=== PATIENT | female | born 1965 | race American Indian/Alaskan Native ===

== ENCOUNTER 2017-03-09 11:00 | Outpatient (CLI) | payer BC | END 2017-03-09 11:01 | disposition home or self-care (01) | LOC: SLR 11:00 | PROVIDERS: ATTEND Specialist | DX: G47.33 Obstructive sleep apnea (adult) (pediatric) (principal); I11.0 Hypertensive heart disease with heart failure; I50.9 Heart failure, unspecified; E78.00 Pure hypercholesterolemia, unspecified; J45.909 Unspecified asthma, uncomplicated | CPT/HCPCS: 95811 ==

== ENCOUNTER 2017-07-28 13:18 | Outpatient (CLI) | payer BC ==
--- NOTE | 2017-07-28 14:15 | Mammography Report ---
BILATERAL MAMMOGRAM: FINDINGS: The breasts are almost entirely fat (<25% glandular). No mass, distortion, suspicious calcification, or skin change is seen. No significant change when compared to prior exam in March 2012. CAD was utilized. IMPRESSION: Negative mammogram. There is no mammographic evidence of malignancy. RECOMMENDATION: Follow-up per ACS guidelines. BI-RADS CATEGORY: 1 = Negative ACR BI-RADS MAMMOGRAPHIC CODES: 0 = Needs additional imaging evaluation; 1 = Negative; 2 = Benign; 3 = Probably benign; 4 = Suspicious; 5 = Malignant; 6 = Known biopsy-proven malignancy COMMENT: 1. Dense breast tissue, i.e., adenosis, fibrocystic changes, etc., may obscure an underlying neoplasm. 2. Approximately 10% of cancers are not detected with mammography. 3. A negative mammography report should not delay biopsy if a clinically suspicious mass is present. COMMENT: Patient follow-up letters are generated in [employer].
== END 2017-07-28 13:19 | disposition home or self-care (01) ==
LOC: MAMMO 13:18
PROVIDERS: ATTEND Family Medicine
DX: Z12.31 Encounter for screening mammogram for malignant neoplasm of breast (principal)
CPT/HCPCS: 77067

== ENCOUNTER 2017-09-29 20:27 | Emergency (ER) | payer OTHER, BC ==
[2017-09-29 21:01] VITALS: BP 149/86
[2017-09-29] MEDS ORDERED: MOTRIN PO ONE (21:02)
--- NOTE | 2017-09-29 21:42 | Emergency Department Report ---
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 Onset/Timin -: hour(s) Location: neck (left posterior lateral neck ), upper extremity (left shoulder ) Radiation: non-radiation Severity scale (0 -10): 3 Quality: aching Improves with: none Worsens with: none Associated Symptoms: denies: confusion, chest pain, diaphoresis, fever/chills, headaches, nausea/vomiting, shortness of breath, syncope, weakness Treatments Prior to Arrival: none - Related Data Home Medications Medication Instructions Recorded Confirmed Last Taken ALBUTEROL Inhaler [ProAir HFA 2 puff IH QID PRN 06/21/16 06/21/16 Unknown Inhaler] Atorvastatin Calcium [Lipitor] 20 mg PO QHS 06/21/16 06/21/16 Unknown Canagliflozin [Invokana] 300 mg PO DAILY 06/21/16 06/21/16 Unknown Lisinopril [Zestril TAB] 20 mg PO QDAY 06/21/16 06/21/16 Unknown Metformin HCl [Glucophage] 1,000 mg PO BID 06/21/16 06/21/16 Unknown Previous Rx's Medication Instructions Recorded Last Taken Type Cyclobenzaprine [Flexeril 10 MG 5 mg PO QHS PRN #10 tablet 06/23/16 Unknown Rx TAB] Furosemide [Lasix] 20 mg PO QDAY #30 tablet 06/23/16 Unknown Rx traMADol [Ultram] 50 mg PO Q6HR PRN #20 tablet 06/23/16 Unknown Rx Cyclobenzaprine [Flexeril] 10 mg PO BID PRN #20 tablet 09/29/17 Unknown Rx Menthol/Camphor [Waldron Helen 1 applicatio TP TID PRN #1 tube 09/29/17 Unknown Rx Ointment] Naproxen [EC-Naprosyn] 500 mg PO BID #30 tablet. 09/29/17 Unknown Rx Allergies Allergy/AdvReac Type Severity Reaction Status Date / Time No Known Allergies Allergy Verified 08/26/14 09:49 ED Review of Systems ROS: Stated complaint: LT SHOULDER PAIN Other details as noted in HPI Constitutional: denies: chills, fever Eyes: denies: eye pain, eye discharge, vision change ENT: denies: ear pain, throat pain Respiratory: denies: cough, shortness of breath, wheezing Cardiovascular: denies: chest pain, palpitations Endocrine: no symptoms reported Gastrointestinal: denies: abdominal pain, nausea, diarrhea Genitourinary: denies: urgency, dysuria, discharge Musculoskeletal: arthralgia, myalgia. denies: back pain, joint swelling Skin: denies: rash, lesions Neurological: denies: headache, weakness, paresthesias Psychiatric: denies: anxiety, depression Hematological/Lymphatic: denies: easy bleeding, easy bruising ED Past Medical Hx - Past Medical History Hx Hypertension: Yes Hx Congestive Heart Failure: Yes Hx Diabetes: Yes Hx Asthma: Yes Additional medical history: Morbid Obesity - Social History Smoking Status: Never Smoker Substance Use Type: None - Medications Home Medications: Home Medications Medication Instructions Recorded Confirmed Last Taken Type ALBUTEROL Inhaler [ProAir HFA 2 puff IH QID PRN 06/21/16 06/21/16 Unknown History Inhaler] Atorvastatin Calcium [Lipitor] 20 mg PO QHS 06/21/16 06/21/16 Unknown History Canagliflozin [Invokana] 300 mg PO DAILY 06/21/16 06/21/16 Unknown History Lisinopril [Zestril TAB] 20 mg PO QDAY 06/21/16 06/21/16 Unknown History Metformin HCl [Glucophage] 1,000 mg PO BID 06/21/16 06/21/16 Unknown History Cyclobenzaprine [Flexeril 10 MG 5 mg PO QHS PRN #10 tablet 06/23/16 Unknown Rx TAB] Furosemide [Lasix] 20 mg PO QDAY #30 tablet 06/23/16 Unknown Rx traMADol [Ultram] 50 mg PO Q6HR PRN #20 tablet 06/23/16 Unknown Rx Cyclobenzaprine [Flexeril] 10 mg PO BID PRN #20 tablet 09/29/17 Unknown Rx Menthol/Camphor [Waldron Helen 1 applicatio TP TID PRN #1 tube 09/29/17 Unknown Rx Ointment] Naproxen [EC-Naprosyn] 500 mg PO BID #30 tablet. 09/29/17 Unknown Rx ED Physical Exam - General Limitations: No Limitations General appearance: alert, in no apparent distress - Head Head exam: Present: atraumatic, normocephalic - Eye Eye exam: Present: normal appearance, PERRL, EOMI Pupils: Present: normal accommodation - ENT ENT exam: Present: mucous membranes moist - Neck Neck exam: Present: tenderness (left lateral neck muscle tenderness to deep palpation). Absent: meningismus, lymphadenopathy, thyromegaly - Expanded Neck Exam Expanded Neck exam: Present: tenderness (left lateral neck muscle tenderness to deep palpation rom intact including chin to chest bilat shoulders and full neck extension , no posterior vertebral point tenderness mild paraspinus muscle tenderness ). Absent: midline deformity, anterior neck swelling, thyroid mass, carotid bruit, tracheal deviation - Respiratory Respiratory exam: Present: normal lung sounds bilaterally. Absent: respiratory distress - Cardiovascular Cardiovascular Exam: Present: regular rate, normal rhythm. Absent: systolic murmur, diastolic murmur, rubs, gallop - GI/Abdominal GI/Abdominal exam: Present: soft, normal bowel sounds - Rectal Rectal exam: Present: deferred - Extremities Exam Extremities exam: Present: normal inspection, tenderness (left posterior lateral shoulder pain with movement), normal capillary refill. Absent: pedal edema, joint swelling, calf tenderness - Expanded Upper Extremity Exam Left Shoulder Exam: Present: normal inspection, tenderness (left posterior lateral muscle tenderness pain with movement arm drop and open can), tenderness over AC joint. Absent: swelling, abrasion, laceration, ecchymosis, deformity, crepidus , dislocation, erythema, other Upper Arm exam: Present: normal inspection, full ROM Elbow exam: Present: normal inspection, full ROM Forearm Wrist exam: Present: normal inspection, full ROM Hand Wrist exam: Present: normal inspection, full ROM Neuro motor exam: Present: wrist extension intact, thumb opposition intact, thumb IP flexion intact, thumb adduction intact, fingers 2-5 abduction intact Neurosensory exam: Present: 2-point discrimination, radial nerve intact, ulnar nerve intact, median nerve intact Vascular: Present: normal capillary refill, radial pulse, brachial pulse, ulnar pulse. Absent: vascular compromise, Pallo, pulse deficit radial art, pulse deficit ulnar art, pulse deficit brachial art - Back Exam Back exam: Present: normal inspection, full ROM. Absent: tenderness, CVA tenderness (R), CVA tenderness (L), muscle spasm, paraspinal tenderness, vertebral tenderness, rash noted - Neurological Exam Neurological exam: Present: alert, oriented X3, CN II-XII intact, normal gait, reflexes normal - Expanded Neurological Exam Expanded Patient oriented to: Present: person, place, time Speech: Present: fluid speech Cranial nerves: EOM's Intact: Normal, Gag Reflex: Normal, Tongue Deviation: Normal, Nystagmus: Normal, Facial Sensation: Normal Upper motor neuron: Pronator Drift: Normal, Sensory Extinction: Normal Sensory exam: Upper Extremity Light Touch: Normal, Upper Extremity Pin Prick: Normal, Upper Extremity Temperature: Normal, UE 2 Point Discrimination: Normal Motor strength exam: RUE: 5, LUE: 5, RLE: 5, LLE: 5 DTR: bicep (R): 2+, bicep (L): 2+, tricep (R): 2+, tricep (L): 2+ Best Eye Response ([place]): (4) open spontaneously Best Motor Response ([place]): (6) obeys commands Best Verbal Response ([place]): (5) oriented [place] Total: 15 - Psychiatric Psychiatric exam: Present: normal affect, normal mood - Skin Skin exam: Present: warm, dry, intact, normal color ED Course Vital Signs 09/29/17 20:46 Temperature 98.5 F Pulse Rate 106 H Respiratory 18 Rate Blood Pressure 149/86 O2 Sat by Pulse 98 Oximetry ED Medical Decision Making - Radiology Data Radiology results: report reviewed, image reviewed no fracture no soft tissue abnormality - Medical Decision 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 exam: pt appears well nontoxic mild discomfort, there is no posterior vertebral point tendereness mild paraspinus muscle tenderness rom intact neck and shoulder including flexion extension lateral rotation shoulder drop and open can. plan: nsaids, muscle relaxants, tiger balm, moist heat therapy neck and shoulder exercises follow up with pcp in 2-3 days pt verbalized agreement and understanding with discharge plan. Critical care attestation.: If time is entered above; I have spent that time in minutes in the direct care of this critically ill patient, excluding procedure time. ED Disposition Clinical Impression: Neck muscle strain Qualifiers: Encounter type: initial encounter Qualified Code(s): S16.1XXA - Strain of muscle, fascia and tendon at neck level, initial encounter Left shoulder strain Qualifiers: Encounter type: initial encounter Qualified Code(s): S46.912A - Strain of unspecified muscle, fascia and tendon at shoulder and upper arm level, left arm , initial encounter Disposition: TO HOME OR SELFCARE Is pt being admited?: No Does the pt Need Aspirin: No Condition: Good Instructions: Muscle Strain (ED), Cervical Spine Strain (ED), Neck Exercises ( GEN), Rotator Cuff Injury (ED) Prescriptions: Cyclobenzaprine [Flexeril] 10 mg PO BID PRN #20 tablet PRN Reason: Muscle Spasm Menthol/Camphor [Waldron Helen Ointment] 1 applicatio TP TID PRN #1 tube PRN Reason: Pain , Severe (7-10) Naproxen [EC-Naprosyn] 500 mg PO BID #30 tablet. Referrals: PRIMARY CARE, [Primary Care Provider] - 3-5 Days Forms: Work/School Release Form(ED) Time of Disposition: 22:21
[2017-09-29] MEDS ORDERED: ULTRAM PO ONE (22:02)
--- NOTE | 2017-09-29 22:40 | XRay Report ---
FINAL REPORT EXAM: XR SPINE CERVICAL 2-3V HISTORY: neck pain TECHNIQUE: Cervical spine 3 views PRIORS: None. FINDINGS: Vertebral bodies demonstrate normal height and alignment. The disk spaces are within normal limits. The facet joints demonstrate normal alignment. The spinous processes are intact. Craniocervical junction is unremarkable. C1 and C2 are intact. IMPRESSION: Negative cervical spine series.
== END 2017-09-29 22:42 | disposition home or self-care (01) ==
LOC: ED 20:27
DX: S46.912A Strain of unspecified muscle, fascia and tendon at shoulder and upper arm level, left arm, initial encounter (principal); S16.1XXA Strain of muscle, fascia and tendon at neck level, initial encounter; I11.0 Hypertensive heart disease with heart failure; I50.9 Heart failure, unspecified; E11.9 Type 2 diabetes mellitus without complications; J45.909 Unspecified asthma, uncomplicated; E66.01 Morbid (severe) obesity due to excess calories; Z79.84 Long term (current) use of oral hypoglycemic drugs; X58.XXXA Exposure to other specified factors, initial encounter; Y93.89 Activity, other specified; Y92.89 Other specified places as the place of occurrence of the external cause; Y99.8 Other external cause status
CPT/HCPCS: 72040; 99283

== ENCOUNTER 2017-11-11 07:49 | Outpatient (CLI) | payer BC ==
[2017-11-11] MEDS ORDERED: LEXISCAN IV ONE ×2 (09:16→09:20)
[2017-11-11 09:40] VITALS: BP 153/91
--- NOTE | 2017-11-11 23:50 | Treadmill Report ---
NUCLEAR PERFUSION SCAN REFERRING PHYSICIAN: Isis Panchal MD PROTOCOL: The patient was brought to the stress lab in a postabsorptive state, given 10 mCi of technetium 99m at rest. The patient underwent rest imaging. The patient went Lexiscan stress test per standard protocol. At peak stress, the patient was given 28 mCi of technetium 99m. Shortly thereafter, the patient underwent stress imaging. This is a technically difficult study, likely due to the patient's body habitus. Breast artifact is identified anteriorly. SPECT imaging examined carefully in the horizontal long axis, vertical long axis, and short axis views. Grossly, there is no significant fixed or reversible perfusion defect suggestive of prior infarction or active ischemia, although anterior breast artifact is identified. Gated wall motion reveals normal systolic thickening, calculated ejection fraction of . No TID. CONCLUSIONS: 1. Technically difficult, but grossly no evidence of a significant degree of ischemia or prior infarction. 2. Normal LV function without transient ischemic dilatation or stress-induced segmental wall motion abnormalities. 3. Normal Lexiscan stress test with evidence of diagnostic ST changes, arrhythmias, or chest pain during stress or recovery. Recommend clinical correlation. Suggest Cardiology evaluation if needed. JOB# [id number] JEFFREY/MARCOS
== END 2017-11-11 07:50 | disposition home or self-care (01) ==
LOC: CARD 07:49
PROVIDERS: ATTEND Family Medicine
DX: R94.31 Abnormal electrocardiogram [ECG] [EKG] (principal)
CPT/HCPCS: 78452; 93017; A9502; J2785

== ENCOUNTER 2018-08-23 08:07 | Emergency (ER) | payer BC ==
[2018-08-23 08:16] VITALS: BP 175/79
[2018-08-23] MEDS ORDERED: TORADOL IM ONE (10:13)
--- NOTE | 2018-08-23 10:15 | Emergency Department Report ---
HPI - General Chief Complaint: Shoulder Injury Time Seen by Provider: 08/23/18 09:30 - HPI HPI: Patient is a 53-year-old female who presents complaining of left shoulder blade pain that started this morning. Patient states that pain is worse with differe nt movement. She denies any recent injury or trauma. Patient did mention that about 2 years ago she did have neck and back injury. She denies any headache, blurry vision, neck pain, dizziness or any other symptoms ED Past Medical Hx - Past Medical History Hx Hypertension: Yes Hx Congestive Heart Failure: Yes Hx Diabetes: Yes Hx Asthma: Yes Additional medical history: Morbid Obesity - Social History Smoking Status: Never Smoker Substance Use Type: None - Medications Home Medications: Home Medications Medication Instructions Recorded Confirmed Last Taken Type ALBUTEROL Inhaler (OR & NICU) 2 puff IH QID PRN 06/21/16 05/08/18 05/08/18 History [ProAir HFA Inhaler] Atorvastatin Calcium [Lipitor] 20 mg PO QHS 06/21/16 05/08/18 Unknown History Aspirin [Aspirin BABY CHEW TAB] 81 mg PO QDAY 05/08/18 05/08/18 Unknown History ALBUTEROL NEB's [Proventil 0.083% 2.5 mg IH Q6H PRN #7 nebu 05/14/18 Unknown Rx NEBS] Arformoterol Nebu [Brovana Nebu] 15 mcg IH Q12HRT #1 ml 05/14/18 Unknown Rx Fluticasone Furoate [Arnuity 100 mcg IH QDAY #1 blst.w.dev 05/14/18 Unknown Rx Ellipta ORAL INH] Furosemide [Lasix TAB] 20 mg PO QDAY #30 tablet 05/14/18 Unknown Rx Metoprolol Succinate [Toprol Xl] 25 mg PO QDAY #30 tab.er.24h 05/14/18 Unknown Rx Sitagliptin Phos/Metformin HCl 2 tab PO QDAY #30 tbmp.24hr 05/14/18 Unknown Rx [Janumet XR 50-1,000 mg] glipiZIDE XL [Glucotrol Xl] 10 mg PO QDAY #30 tablet 05/14/18 Unknown Rx levoFLOXacin [Levaquin TAB] 750 mg PO Q24H #7 tablet 05/14/18 Unknown Rx Cyclobenzaprine [Flexeril 10 MG 10 mg PO BID PRN #20 tablet 08/23/18 Unknown Rx TAB] Naproxen [Naprosyn] 500 mg PO BID #30 tablet 08/23/18 Unknown Rx ED Review of Systems ROS: Stated complaint: ENTIRE LT SIDE PAIN Other details as noted in HPI Comment: All other systems reviewed and negative Physical Exam - Physical Exam Vital Signs: Vital Signs 08/23/18 08:13 Temperature 97.6 F Pulse Rate 101 H Respiratory 18 Rate Blood Pressure 175/79 O2 Sat by Pulse 95 Oximetry Physical Exam: GENERAL: Alert and oriented x3, no apparent distress, Normal Gait, atraumatic. HEAD: Head is normocephalic and a-traumatic. NECK: Supple. Non edematous, No lymphadenopathy or thyromegaly. No C-spine tenderness, full range of motion LUNGS: Symetrical with respiration, No wheezing, no rales or crackles, CTAB. HEART: S1, S2 present, regular rate and rhythm without murmur, no rubs, no gallops. Non tender to palpation BACK: Full range of motion, no spinal tenderness, Tenderness to palpation of the trapezius muscles and latissimus dorsi muscles of the back EXTREMITIES/MUSCULOSKELETAL: No cyanosis, clubbing, rash, lesions or edema. Full ROM bilaterally. UE/LE Pulses 2+ bilaterally. LE and UE 5+ strength bilaterally, NEUROLOGIC: The patient is cooperative with no focal neurologic deficits. SKIN: Warm and dry, No lesions, No ulceration or induration present. ED Course Vital Signs 08/23/18 08:13 Temperature 97.6 F Pulse Rate 101 H Respiratory 18 Rate Blood Pressure 175/79 O2 Sat by Pulse 95 Oximetry ED Medical Decision Making - Radiology Data Radiology results: report reviewed, image reviewed LEFT SHOULDER: History: Pain. Mild osteoarthritic changes are identified at the acromioclavicular joint and glenohumeral joint. No evidence for fracture, malalignment, ligamentous injury or bone lesion. The soft tissues are unremarkable. IMPRESSION: Mild osteoarthritis. Transcribed By: TTR Dictated By: LAYA BRUNO JR, MD Electronically Authenticated By: LAYA BRUNO JR, MD Signed Date/Time: 08/23/18 1044 - Medical Decision Making This is a 53-year-old female who presents to ED with left shoulder Pain moderated in the ED. Discussed the patient follow up with primary care physician. Vital signs are normal she is in no acute distress. Critical care attestation.: If time is entered above; I have spent that time in minutes in the direct care of this critically ill patient, excluding procedure time. ED Disposition Clinical Impression: Shoulder pain, left Disposition: [id number] TO HOME OR SELFCARE Is pt being admited?: No Does the pt Need Aspirin: No Condition: Stable Instructions: Osteoarthritis (ED), Shoulder Sprain (ED), Arthralgia (ED) Additional Instructions: Make sure to follow up with the primary care physician as discussed. Take all your medications as you've been prescribed. If you have any worsening symptoms or develop new symptoms please return to ED immediately. Prescriptions: Cyclobenzaprine [Flexeril 10 MG TAB] 10 mg PO BID PRN #20 tablet PRN Reason: Muscle Spasm Naproxen [Naprosyn] 500 mg PO BID #30 tablet Referrals: QAMAR KING MD [Primary Care Provider] - 3-5 Days Forms: Accompanied Note, Work/School Release Form(ED) Time of Disposition: 11:28
--- NOTE | 2018-08-23 10:53 | XRay Report ---
LEFT SCAPULA: History: Pain. The bony architecture is intact without evidence of fracture or dislocation. No significant soft tissue abnormality is seen. IMPRESSION: Left scapula within normal limits.
--- NOTE | 2018-08-23 10:54 | XRay Report ---
LEFT SHOULDER: History: Pain. Mild osteoarthritic changes are identified at the acromioclavicular joint and glenohumeral joint. No evidence for fracture, malalignment, ligamentous injury or bone lesion. The soft tissues are unremarkable. IMPRESSION: Mild osteoarthritis.
== END 2018-08-23 11:50 | disposition home or self-care (01) ==
LOC: ED 08:07
DX: M25.512 Pain in left shoulder (principal); I11.0 Hypertensive heart disease with heart failure; E11.9 Type 2 diabetes mellitus without complications; J45.909 Unspecified asthma, uncomplicated; E66.01 Morbid (severe) obesity due to excess calories; Z68.42 Body mass index [BMI] 45.0-49.9, adult; Z79.82 Long term (current) use of aspirin
CPT/HCPCS: 73010; 73030; 96372; 99283; J1885

== ENCOUNTER 2018-09-21 10:51 | Outpatient (CLI) | payer BC ==
[2018-09-21 12:42] LABS: Blood Urea Nitrogen 8 mg/dL (7-17)
--- NOTE | 2018-09-21 14:00 | Cat Scan Report ---
CTA CHEST: HISTORY: Dyspnea, chest pain, left-sided back pain. COMPARISON: none. TECHNIQUE: Helical CT in 1.25mm intervals following IV contrast. Pulmonary embolus protocol. Sagittal and coronal reformatted images. Rotational MIP images. FINDINGS: Contrast bolus is satisfactory. No pulmonary embolus is identified. Thyroid gland: Normal. Tracheobronchial tree: Normal. Esophagus: Normal. Heart: Borderline heart size. Pericardium: Normal. Mediastinum: Normal. Lung Anderson: Normal. Pleural Spaces: Normal. Musculoskeletal: Intact. Mild thoracic spondylosis. IMPRESSION: No evidence for pulmonary embolus. Borderline cardiomegaly. Lungs clear.
== END 2018-09-21 10:52 | disposition home or self-care (01) ==
LOC: CT 10:51
PROVIDERS: ATTEND Family Medicine
DX: R06.00 Dyspnea, unspecified (principal); R07.9 Chest pain, unspecified; M47.814 Spondylosis without myelopathy or radiculopathy, thoracic region; E78.00 Pure hypercholesterolemia, unspecified; I11.0 Hypertensive heart disease with heart failure; I50.9 Heart failure, unspecified; J45.909 Unspecified asthma, uncomplicated
CPT/HCPCS: 36415; 71275; 82565; 84520; Q9967

== ENCOUNTER 2019-01-24 08:24 | Inpatient (IN) | payer BC ==
[2019-01-24] MEDS ORDERED: NACL 0.9% 500 ML 500 ML IV ONE (08:42)
[2019-01-24] MEDS ORDERED: SOLU-Medrol IV ONE (08:42)
[2019-01-24] MEDS ORDERED: ATROVENT IH ONE (08:42)
[2019-01-24] MEDS ORDERED: PROVENTIL IH ONE (08:42)
--- NOTE | 2019-01-24 08:43 | Emergency Department Report ---
ED General Adult HPI - General Chief complaint: Adult Asthma Stated complaint: ASTHMA Time Seen by Provider: 01/24/19 08:32 Source: patient, RN notes reviewed, old records reviewed Mode of arrival: Ambulatory Limitations: No Limitations - History of Present Illness Initial comments: Pulmonology: Dr. Irwin Past medical history: Morbid obesity, reported asthma, not on home oxygen, sleep apnea, reportedly noncompliant with CPAP, history of nonsustained ventricular tachycardia, history of hypoxia, presents today with a complaint of painless wheezing, cough and shortness of breath. Symptoms present for about a week. They're constant. They do not radiate anywhere. It worsened physical exertion. It decreased with rest. Patient took albuterol at home. It somewhat improved her symptoms. Positive dry cough. Patient denies DVT, pulmonary embolus risk factors. She denies other complaints at this time. -: Gradual, days(s) Consistency: constant Improves with: rest Worsens with: movement - Related Data Home Medications Medication Instructions Recorded Confirmed Last Taken ALBUTEROL Inhaler (OR & NICU) 2 puff IH QID PRN 06/21/16 05/08/18 05/08/18 [ProAir HFA Inhaler] Atorvastatin Calcium [Lipitor] 20 mg PO QHS 06/21/16 05/08/18 Unknown Aspirin [Aspirin BABY CHEW TAB] 81 mg PO QDAY 05/08/18 05/08/18 Unknown Previous Rx's Medication Instructions Recorded Last Taken Type ALBUTEROL NEB's [Proventil 0.083% 2.5 mg IH Q6H PRN #7 nebu 05/14/18 Unknown Rx NEBS] Arformoterol Nebu [Brovana Nebu] 15 mcg IH Q12HRT #1 ml 05/14/18 Unknown Rx Fluticasone Furoate [Arnuity 100 mcg IH QDAY #1 blst.w.dev 05/14/18 Unknown Rx Ellipta ORAL INH] Furosemide [Lasix TAB] 20 mg PO QDAY #30 tablet 05/14/18 Unknown Rx Metoprolol Succinate [Toprol Xl] 25 mg PO QDAY #30 tab.er.24h 05/14/18 Unknown Rx Sitagliptin Phos/Metformin HCl 2 tab PO QDAY #30 tbmp.24hr 05/14/18 Unknown Rx [Janumet XR 50-1,000 mg] glipiZIDE XL [Glucotrol Xl] 10 mg PO QDAY #30 tablet 05/14/18 Unknown Rx levoFLOXacin [Levaquin TAB] 750 mg PO Q24H #7 tablet 05/14/18 Unknown Rx Cyclobenzaprine [Flexeril 10 MG 10 mg PO BID PRN #20 tablet 08/23/18 Unknown Rx TAB] Naproxen [Naprosyn] 500 mg PO BID #30 tablet 08/23/18 Unknown Rx Allergies Allergy/AdvReac Type Severity Reaction Status Date / Time No Known Allergies Allergy Verified 08/23/18 08:13 ED Review of Systems ROS: Stated complaint: ASTHMA Other details as noted in HPI Constitutional: denies: fever Eyes: denies: eye discharge ENT: congestion Respiratory: cough, shortness of breath, SOB with exertion, SOB at rest, wheezing Cardiovascular: denies: syncope Gastrointestinal: denies: vomiting Genitourinary: denies: dysuria Musculoskeletal: denies: back pain Skin: denies: lesions Neurological: denies: headache Hematological/Lymphatic: denies: easy bleeding ED Past Medical Hx - Past Medical History Previous Medical History?: Yes Hx Hypertension: Yes Hx Congestive Heart Failure: Yes Hx Diabetes: Yes Hx Asthma: Yes Additional medical history: Morbid Obesity - Social History Smoking Status: Never Smoker Substance Use Type: None - Medications Home Medications: Home Medications Medication Instructions Recorded Confirmed Last Taken Type ALBUTEROL Inhaler (OR & NICU) 2 puff IH QID PRN 06/21/16 05/08/18 05/08/18 History [ProAir HFA Inhaler] Atorvastatin Calcium [Lipitor] 20 mg PO QHS 06/21/16 05/08/18 Unknown History Aspirin [Aspirin BABY CHEW TAB] 81 mg PO QDAY 05/08/18 05/08/18 Unknown History ALBUTEROL NEB's [Proventil 0.083% 2.5 mg IH Q6H PRN #7 nebu 05/14/18 Unknown Rx NEBS] Arformoterol Nebu [Brovana Nebu] 15 mcg IH Q12HRT #1 ml 05/14/18 Unknown Rx Fluticasone Furoate [Arnuity 100 mcg IH QDAY #1 blst.w.dev 05/14/18 Unknown Rx Ellipta ORAL INH] Furosemide [Lasix TAB] 20 mg PO QDAY #30 tablet 05/14/18 Unknown Rx Metoprolol Succinate [Toprol Xl] 25 mg PO QDAY #30 tab.er.24h 05/14/18 Unknown Rx Sitagliptin Phos/Metformin HCl 2 tab PO QDAY #30 tbmp.24hr 05/14/18 Unknown Rx [Janumet XR 50-1,000 mg] glipiZIDE XL [Glucotrol Xl] 10 mg PO QDAY #30 tablet 05/14/18 Unknown Rx levoFLOXacin [Levaquin TAB] 750 mg PO Q24H #7 tablet 05/14/18 Unknown Rx Cyclobenzaprine [Flexeril 10 MG 10 mg PO BID PRN #20 tablet 08/23/18 Unknown Rx TAB] Naproxen [Naprosyn] 500 mg PO BID #30 tablet 08/23/18 Unknown Rx ED Physical Exam - General Limitations: No Limitations General appearance: alert, in no apparent distress, obese - Head Head exam: Present: atraumatic, normocephalic - Eye Eye exam: Present: normal appearance - ENT ENT exam: Present: normal exam, normal orophraynx, mucous membranes moist - Neck Neck exam: Present: normal inspection, full ROM. Absent: tenderness, meningismus - Respiratory Respiratory exam: Present: wheezes (question very faint wheezes noted.), decreased breath sounds. Absent: rales, stridor - Cardiovascular Cardiovascular Exam: Present: normal rhythm, tachycardia, normal heart sounds. Absent: systolic murmur, diastolic murmur, rubs, gallop - GI/Abdominal GI/Abdominal exam: Present: soft. Absent: distended, tenderness, guarding, rebound, rigid, pulsatile mass - Extremities Exam Extremities exam: Present: normal inspection, full ROM, other (2+ pulses noted in the bilateral upper, lower extremities. Compartments soft. No long bony t enderness. The pelvis is stable.). Absent: pedal edema, calf tenderness - Back Exam Back exam: Present: normal inspection, full ROM. Absent: tenderness, CVA t enderness (R), CVA tenderness (L), paraspinal tenderness, vertebral tenderness - Neurological Exam Neurological exam: Present: alert, other (Extraocular movements intact. Tongue midline. No facial droop. Facial sensation intact to light touch in the V1, V2, V3 distribution bilaterally. 5 and 5 strength in 4 extremities.. Sensation is intact to light touch in 4 extremities.). Absent: motor sensory deficit - Psychiatric Psychiatric exam: Present: normal affect, normal mood - Skin Skin exam: Present: warm, dry, intact, normal color. Absent: rash ED Course Vital Signs 01/24/19 01/24/19 01/24/19 08:26 08:30 08:46 Temperature 98.5 F Pulse Rate 122 H 120 H Pulse Rate [ Bilateral] Respiratory 20 24 Rate Respiratory Rate [Bilateral ] Blood Pressure 165/78 Blood Pressure 169/79 [Right] O2 Sat by Pulse 88 91 Oximetry 01/24/19 01/24/19 01/24/19 09:05 09:06 09:16 Temperature Pulse Rate Pulse Rate [ 94 H Bilateral] Respiratory Rate Respiratory 16 Rate [Bilateral ] Blood Pressure 132/67 Blood Pressure [Right] O2 Sat by Pulse 98 97 Oximetry 01/24/19 01/24/19 01/24/19 09:19 09:30 10:00 Temperature Pulse Rate 110 H Pulse Rate [ Bilateral] Respiratory Rate Respiratory Rate [Bilateral ] Blood Pressure 132/67 132/67 Blood Pressure [Right] O2 Sat by Pulse 95 97 Oximetry 01/24/19 01/24/19 01/24/19 10:30 11:01 11:30 Temperature Pulse Rate Pulse Rate [ Bilateral] Respiratory Rate Respiratory Rate [Bilateral ] Blood Pressure 132/67 135/62 123/72 Blood Pressure [Right] O2 Sat by Pulse 95 87 80 L Oximetry 01/24/19 12:05 Temperature Pulse Rate Pulse Rate [ Bilateral] Respiratory Rate Respiratory Rate [Bilateral ] Blood Pressure 135/62 Blood Pressure [Right] O2 Sat by Pulse 96 Oximetry - Reevaluation(s) Reevaluation #1: 01/24/19 11:02 Differential diagnosis, including but not limited to: COPD exacerbation, asthma exacerbation, pulmonary hypertension, right-sided heart failure, congestive heart failure, pneumonia, asthma exacerbation, obstructive sleep apnea, obesity hypoventilation syndrome Assessment and plan: 53-year-old female, morbidly obese, large pendulous chest, known history of asthma, obesity, noncompliance with CPAP, presenting with painless shortness of breath. Suspect multifactorial etiology, including probable undiagnosed pulmonary hypertension, asthma, obstructive sleep apnea, obesity hypoventilation syndrome. She endorses no pulmonary embolism or DVT r isk factors, she is low risk by well's criteria. The patient also has a negative d-dimer. We will treat her symptoms, and reassess after her initial data points. Of note, the patient did have an echocardiogram performed on 11/10/2018, she was found to have an ejection fraction of 45-50%, she had abnormal left ventricular diastolic filling observed, consistent with impaired relaxation, she also had a negative cardiac stress test performed on 11/12/2017. The echocardiogram is documented as being attentively difficult study, there is no specific comment on the presence or absence of pulmonary hypertension. 01/24/19 11:05 Reevaluation #2: 01/24/19 12:33 Patient is saturating at 84, 85% on room air. In given trial of ambulation, she continues to desaturate at 84%. She is placed on supplemental oxygen, 3 L. Recommended admission for acute hypoxemic respiratory failure. Patient is amenable to this plan of care. The Hospital physician, Dr. Arabella Caballero has accepted the patient to his service. ED Medical Decision Making - Lab Data Result diagrams: 01/24/19 08:57 01/24/19 09:45 Vital Signs 01/24/19 01/24/19 01/24/19 08:26 08:30 08:46 Temperature 98.5 F Pulse Rate 122 H 120 H Pulse Rate [ Bilateral] Respiratory 20 24 Rate Respiratory Rate [Bilateral ] Blood Pressure 165/78 Blood Pressure 169/79 [Right] O2 Sat by Pulse 88 91 Oximetry 01/24/19 01/24/19 01/24/19 09:05 09:06 09:16 Temperature Pulse Rate Pulse Rate [ 94 H Bilateral] Respiratory Rate Respiratory 16 Rate [Bilateral ] Blood Pressure 132/67 Blood Pressure [Right] O2 Sat by Pulse 98 97 Oximetry 01/24/19 09:19 Temperature Pulse Rate 110 H Pulse Rate [ Bilateral] Respiratory Rate Respiratory Rate [Bilateral ] Blood Pressure Blood Pressure [Right] O2 Sat by Pulse Oximetry Lab Results 01/24/19 01/24/19 01/24/19 Range/Units 00:40 08:57 08:57 WBC 12.6 H (4.5-11.0) K/mm3 RBC 4.53 (3.65-5.03) M/mm3 Hgb 15.3 H (10.1-14.3) gm/dl Hct 45.3 H (30.3-42.9) % MCV 100 H (79-97) fl MCH 34 H (28-32) pg MCHC 34 (30-34) % RDW 15.2 (13.2-15.2) % Plt Count 238 (140-440) K/mm3 PT 13.6 (12.2-14.9) Sec. INR 1.07 (0.87-1.13) D-Dimer 143.29 (0-234) ng/mlDDU Sodium 139 (137-145) mmol/L Potassium 7.0 H* (3.6-5.0) mmol/L Chloride 98.5 (98-107) mmol/L Carbon Dioxide (22-30) mmol/L Anion Gap mmol/L BUN 10 (7-17) mg/dL Creatinine 0.5 L (0.7-1.2) mg/dL Estimated GFR > 60 ml/min BUN/Creatinine Ratio 20 % Glucose 171 H (65-100) mg/dL Calcium 8.3 L (8.4-10.2) mg/dL Magnesium (1.7-2.3) mg/dL Total Creatine Kinase (30-135) units/L 01/24/19 01/24/19 Range/Units 08:57 09:45 WBC (4.5-11.0) K/mm3 RBC (3.65-5.03) M/mm3 Hgb (10.1-14.3) gm/dl Hct (30.3-42.9) % MCV (79-97) fl MCH (28-32) pg MCHC (30-34) % RDW (13.2-15.2) % Plt Count (140-440) K/mm3 PT (12.2-14.9) Sec. INR (0.87-1.13) D-Dimer (0-234) ng/mlDDU Sodium 142 (137-145) mmol/L Potassium 3.9 D (3.6-5.0) mmol/L Chloride 100.4 (98-107) mmol/L Carbon Dioxide 30 (22-30) mmol/L Anion Gap 16 mmol/L BUN 10 (7-17) mg/dL Creatinine 0.4 L (0.7-1.2) mg/dL Estimated GFR > 60 ml/min BUN/Creatinine Ratio 25 % Glucose 163 H (65-100) mg/dL Calcium 8.1 L (8.4-10.2) mg/dL Magnesium 2.00 (1.7-2.3) mg/dL Total Creatine Kinase 195 H (30-135) units/L - EKG Data -: EKG Interpreted by Me EKG shows normal: sinus rhythm Rate: normal - EKG Data 01/24/19 11:01 This is a sinus tachycardia, left axis deviation, borderline left anterior fascicular block, motion artifact, atrial enlargement, poor R progression, the EKG is abnormal, the QTC is grossly prolonged, the EKG is unchanged from prior EKG from April 2018. - Radiology Data Radiology results: pending, image reviewed interpreted by me: X-ray the chest shows no obvious infiltrate. Question pulmonary vascular congestion. Critical Care Time: Yes Critical care time in (mins) excluding proc time.: 35 Critical care attestation.: If time is entered above; I have spent that time in minutes in the direct care of this critically ill patient, excluding procedure time. ED Disposition Clinical Impression: Morbid obesity, Acute respiratory failure with hypoxia, Acute asthma e xacerbation, SORAYA (obstructive sleep apnea), Pulmonary hypertension Disposition: -09 OP ADMIT IP TO THIS HOSP Is pt being admited?: Yes Condition: Good Referrals: YOGI DELAROSA MD [Primary Care Provider] - 3-5 Days
[2019-01-24 09:16] LABS: Hematocrit 45.3 % (30.3-42.9); Hemoglobin 15.3 gm/dl (10.1-14.3); Mean Corpuscular HGB Conc 34 % (30-34); Mean Corpuscular Volume 100 fl (79-97); Platelet Count 238 K/mm3 (140-440); Red Blood Count 4.53 M/mm3 (3.65-5.03); Red Cell Distribution Width 15.2 % (13.2-15.2)
[2019-01-24 09:33] LABS: BUN/Creatinine Ratio 20; Blood Urea Nitrogen 10 mg/dL (7-17); Calcium 8.3 mg/dL (8.4-10.2); Hemolysis Index 604
[2019-01-24 09:33] LABS: INR 1.07 (0.87-1.13)
[2019-01-24 10:12] LABS: BUN/Creatinine Ratio 25; Blood Urea Nitrogen 10 mg/dL (7-17); Calcium 8.1 mg/dL (8.4-10.2); Hemolysis Index 10
--- NOTE | 2019-01-24 11:07 | XRay Report ---
CHEST 2 VIEWS INDICATION: Acute shortness of breath. COMPARISON: FINDINGS: Support devices: None. Heart: Heart size is borderline to mildly increased. Lungs/pleura: No acute air space or interstitial disease. No pneumothorax. Additional findings: None. IMPRESSION: Borderline to mild cardiomegaly. Lungs clear. Signer Name: Hamzah Guzmán Jr, MD Signed: 01/24/2019 11:03 AM Workstation Name: [id number]
[2019-01-24] MEDS ORDERED: MAGNESIUM SULFATE 2GM/50ML 2 GM/50 ML BAG IV ONE ×2 (12:31→13:25)
--- NOTE | 2019-01-24 16:40 | History and Physical Report ---
History of Present Illness Date of examination: 01/24/19 Date of admission: 01/24/19 12:34 Chief complaint: Shortness of breath and wheezing for 1 week History of present illness: 53-year-old -[place] female with history of asthma type 2 diabetes, hyperlipidemia and hypertension and obstructive sleep apnea constant for increasing wheezing and shortness of breath for 1 week. Wheezing is constant and not improving with nebulizer treatments at home. Patient is not using a CPAP machine on a regular basis. Patient stopped smoking 8 years ago when she was 45-year-old. Patient started having asthma attacks and COPD around age 77. No fever or chills. Cough productive of mucoid sputum. Patient says that the air conditioning ducts in her home may be precipitating her asthma attacks. Patient was hypoxic at the time of admission. Patient also has morbid obesity. Past Medical History Previous Medical History?: Yes Hypertension Congestive Heart Failure Diabetes Asthma Additional medical history: Morbid Obesity Social History Smoking Status: Never Smoker Substance Use Type: None Surgical history None Family history Medications Home Medications: Home Medications Medication Instructions Recorded Confirmed Last Taken Type ALBUTEROL Inhaler (OR & NICU) 2 puff IH QID PRN 06/21/16 05/08/18 05/08/18 History [ProAir HFA Inhaler] Atorvastatin Calcium [Lipitor] 20 mg PO QHS 06/21/16 05/08/18 Unknown History Aspirin [Aspirin BABY CHEW TAB] 81 mg PO QDAY 05/08/18 05/08/18 Unknown History ALBUTEROL NEB's [Proventil 0.083% 2.5 mg IH Q6H PRN #7 nebu 05/14/18 Unknown Rx NEBS] Arformoterol Nebu [Brovana Nebu] 15 mcg IH Q12HRT #1 ml 05/14/18 Unknown Rx Fluticasone Furoate [Arnuity 100 mcg IH QDAY #1 blst.w.dev 05/14/18 Unknown Rx Ellipta ORAL INH] Furosemide [Lasix TAB] 20 mg PO QDAY #30 tablet 05/14/18 Unknown Rx Metoprolol Succinate [Toprol Xl] 25 mg PO QDAY #30 tab.er.24h 05/14/18 Unknown Rx Sitagliptin Phos/Metformin HCl 2 tab PO QDAY #30 tbmp.24hr 05/14/18 Unknown Rx [Janumet XR 50-1,000 mg] glipiZIDE XL [Glucotrol Xl] 10 mg PO QDAY #30 tablet 05/14/18 Unknown Rx levoFLOXacin [Levaquin TAB] 750 mg PO Q24H #7 tablet 05/14/18 Unknown Rx Cyclobenzaprine [Flexeril 10 MG 10 mg PO BID PRN #20 tablet 08/23/18 Unknown Rx TAB] Naproxen [Naprosyn] 500 mg PO BID #30 tablet 08/23/18 Unknown Rx Review of Systems ROS: Stated complaint: ASTHMA Other details as noted in HPI Constitutional: denies: fever Eyes: denies: eye discharge ENT: congestion Respiratory: cough, shortness of breath, SOB with exertion, SOB at rest, wheezing Cardiovascular: denies: syncope Gastrointestinal: denies: vomiting Genitourinary: denies: dysuria Musculoskeletal: denies: back pain Skin: denies: lesions Neurological: denies: headache Hematological/Lymphatic: denies: easy bleeding 14 point review of systems done and otherwise negative. Medications and Allergies Allergies Allergy/AdvReac Type Severity Reaction Status Date / Time No Known Allergies Allergy Verified 08/23/18 08:13 Home Medications Medication Instructions Recorded Confirmed Last Taken Type ALBUTEROL Inhaler (OR & NICU) 2 puff IH QID PRN 06/21/16 01/24/19 05/08/18 History [ProAir HFA Inhaler] Atorvastatin Calcium [Lipitor] 20 mg PO QHS 06/21/16 01/24/19 Unknown History Aspirin [Aspirin BABY CHEW TAB] 81 mg PO QDAY 05/08/18 01/24/19 Unknown History ALBUTEROL NEB's [Proventil 0.083% 2.5 mg IH Q6H PRN #7 nebu 05/14/18 01/24/19 Unknown Rx NEBS] Arformoterol Nebu [Brovana Nebu] 15 mcg IH Q12HRT #1 ml 05/14/18 01/24/19 Unknown Rx Fluticasone Furoate [Arnuity 100 mcg IH QDAY #1 blst.w.dev 05/14/18 01/24/19 Unknown Rx Ellipta ORAL INH] Metoprolol Succinate [Toprol Xl] 25 mg PO QDAY #30 tab.er.24h 05/14/18 01/24/19 Unknown Rx glipiZIDE XL [Glucotrol Xl] 10 mg PO QDAY #30 tablet 05/14/18 01/24/19 Unknown Rx Cyclobenzaprine [Flexeril 10 MG 10 mg PO BID PRN #20 tablet 08/23/18 01/24/19 Unknown Rx TAB] Budesonide/Formoterol Fumarate 2 puff IH BID 01/24/19 01/24/19 Unknown History [Symbicort 160-4.5 Mcg Inhaler] Bumetanide [Bumetanide 2 mg tab] 2 mg PO DAILY 01/24/19 01/24/19 Unknown History Naproxen [Naprosyn] 500 mg PO BID PRN 01/24/19 01/24/19 Unknown History Sitagliptin Phos/Metformin HCl 1 each PO QDAY 01/24/19 01/24/19 Unknown History [Janumet XR 50-1,000 mg] Exam - Constitutional Vitals: Temp Pulse Resp BP Pulse Ox 98.5 F 110 H 18 123/72 93 01/24/19 08:46 01/24/19 13:50 01/24/19 16:13 01/24/19 13:30 01/24/19 16:13 General appearance: Present: no acute distress, well-nourished - EENT Eyes: Present: PERRL ENT: hearing intact, clear oral mucosa - Neck Neck: Present: supple, normal ROM - Respiratory Respiratory effort: normal Respiratory: bilateral: CTA - Cardiovascular Heart rate: 78 Rhythm: regular Heart Sounds: Present: S1 & S2. Absent: rub, click - Extremities Extremities: no ischemia, pulses intact, pulses symmetrical, No edema Peripheral Pulses: within normal limits - Abdominal General gastrointestinal: Present: soft, non-tender, non-distended, normal bowel sounds Female genitourinary: Present: normal - Rectal Rectal Exam: deferred - Integumentary Integumentary: Present: clear, warm, dry - Musculoskeletal Musculoskeletal: gait normal, strength equal bilaterally - Psychiatric Psychiatric: appropriate mood/affect, intact judgment & insight - Neurologic Neurologic: CNII-XII intact, moves all extremities - Allied Health Allied health notes reviewed: nursing, case management Results - Labs CBC & Chem 7: 01/24/19 08:57 01/24/19 09:45 Labs: Laboratory Last Values WBC 12.6 K/mm3 (4.5-11.0) H 01/24/19 08:57 RBC 4.53 M/mm3 (3.65-5.03) 01/24/19 08:57 Hgb 15.3 gm/dl (10.1-14.3) H 01/24/19 08:57 Hct 45.3 % (30.3-42.9) H 01/24/19 08:57 MCV 100 fl (79-97) H 01/24/19 08:57 MCH 34 pg (28-32) H 01/24/19 08:57 MCHC 34 % (30-34) 01/24/19 08:57 RDW 15.2 % (13.2-15.2) 01/24/19 08:57 Plt Count 238 K/mm3 (140-440) 01/24/19 08:57 PT 13.6 Sec. (12.2-14.9) 01/24/19 08:57 INR 1.07 (0.87-1.13) 01/24/19 08:57 143.29 ng/mlDDU (0-234) 01/24/19 08:57 Sodium 142 mmol/L (137-145) 01/24/19 09:45 Potassium 3.9 mmol/L (3.6-5.0) D 01/24/19 09:45 Chloride 100.4 mmol/L (98-107) 01/24/19 09:45 Carbon Dioxide 30 mmol/L (22-30) 01/24/19 09:45 16 mmol/L 01/24/19 09:45 BUN 10 mg/dL (7-17) 01/24/19 09:45 0.4 mg/dL (0.7-1.2) L 01/24/19 09:45 Estimated GFR > 60 ml/min 01/24/19 09:45 25 % 01/24/19 09:45 Glucose 163 mg/dL (65-100) H 01/24/19 09:45 Calcium 8.1 mg/dL (8.4-10.2) L 01/24/19 09:45 Magnesium 2.00 mg/dL (1.7-2.3) 01/24/19 08:57 195 units/L (30-135) H 01/24/19 08:57 NT-Pro-B Natriuret Pep 203.8 pg/mL (0-900) 01/24/19 09:45 - Imaging and Cardiology EKG: report reviewed (sinus tachycardia, heart rate of [address]-T wave changes) Chest x-ray: report reviewed (mild to moderate cardiomegaly, lungs are clear) Assessment and Plan Advance Directives: Yes (full code) VTE prophylaxis?: Chemical Plan of care discussed with patient/family: Yes - Patient Problems (1) Acute respiratory failure with hypoxia Current Visit: Yes Status: Acute Plan to address problem: Patient was hypoxic at the time of admission to the emergency room O2 sats were ranging from 82/87. O2 sat is improved with nebulizer treatments and oxygen. It is not clear whether she'll need home oxygen at this time Patient did get nebulizer treatments and IV Solu-Medrol and IV antibiotics. (2) Acute asthma exacerbation Current Visit: Yes Status: Acute Qualifiers: Asthma severity: severe Plan to address problem: Patient initiated on IV Solu-Medrol, IV antibiotics and nebulizer treatments Oxygen to continue Patient is tachypneic BiPAP if necessary Intubation if necessary (3) SORAYA (obstructive sleep apnea) Current Visit: Yes Status: Chronic Plan to address problem: CPAP at nighttime (4) Type 2 diabetes mellitus Current Visit: Yes Status: Chronic Qualifiers: Diabetes mellitus fpc insulin use: without terminal press operator use Plan to address problem: Continue oral hypoglycemics in the form of glipizide and Janumet. Insulin coverage with Humalog before meals and at bedtime. Check hemoglobin A1c. (5) HTN (hypertension) Current Visit: No Status: Chronic Qualifiers: Hypertension type: essential hypertension Qualified Code(s): I10 - Essential (primary) hypertension Plan to address problem: Continue antihypertensives in the form of metoprolol 25 mg once a day and Bumex 2 mg once a day. (6) Hyperlipidemia Current Visit: Yes Status: Chronic Qualifiers: Hyperlipidemia type: mixed hyperlipidemia Qualified Code(s): E78.2 - Mixed hyperlipidemia Plan to address problem: Continue statins (7) Hyperkalemia Current Visit: Yes Status: Acute Plan to address problem: Secondary to hemolysis We will repeat the potassium level and treat accordingly (8) Hypocalcemia Current Visit: Yes Status: Chronic Plan to address problem: Patient initiated on Caltrate D twice a day (9) DVT prophylaxis Current Visit: Yes Status: Acute Plan to address problem: Patient on Lovenox and GI prophylaxis
[2019-01-24] MEDS ORDERED: FLEXERIL PO PRN (16:45)
[2019-01-24] MEDS ORDERED: PROAIR IH PRN (16:45)
[2019-01-24] MEDS ORDERED: NAPROSYN PO PRN (16:45)
[2019-01-24] MEDS ORDERED: SODIUM CHLORIDE FLUSH SYRINGE 10 ML IV PRN ×2 (16:48→16:52)
[2019-01-24] MEDS ORDERED: TYLENOL PO PRN (16:48)
[2019-01-24] MEDS ORDERED: ZOFRAN IV PRN ×2 (16:48→16:52)
[2019-01-24] MEDS ORDERED: DILAUDID IV PRN (16:48)
[2019-01-24] MEDS ORDERED: AMBIEN PO PRN (16:48)
[2019-01-24] MEDS ORDERED: NON-FORMULARY (Bumetanide [Bumetanide 2 Mg Tab] 2 MG) PO SCH (17:00)
[2019-01-24] MEDS ORDERED: FLUTICASONE FUROATE 100 MCG IH SCH (17:00)
[2019-01-24] MEDS ORDERED: NACL 0.9% 1000 ML 1,000 ML IV SCH (17:00)
[2019-01-24] MEDS ORDERED: PROVENTIL IH PRN ×2 (17:06→17:52)
--- NOTE | 2019-01-24 18:28 | Consultation ---
History of Present Illness Consult date: 01/24/19 Reason for consult: dyspnea, cough, asthma, COPD, obstructive sleep apnea History of present illness: PULMONARY AND CRITICAL CARE CONSULTATION DR. ALEXANDER THANK YOU FOR ASKING US TO PARTICIPATE IN THE CARE OF THIS PATIENT. 53-year-old -[place] female with history of asthma type 2 diabetes, hyperlipidemia and hypertension and obstructive sleep apnea constant for increasing wheezing and shortness of breath for 1 week. Wheezing is constant and not improving with nebulizer treatments at home. Patient is not using a CPAP machine on a regular basis.Patient started smoking age 17. 1 pack a day. Patient stopped smoking 8 years ago when she was 45-year-old. Patient started having asthma attacks . No fever or chills. Cough productive of mucoid sputum. Patient says that the air conditioning ducts in her home may be precipitating her asthma attacks. Patient was hypoxic at the time of admission. Patient also has morbid obesity and has history of sleep apnea. This could be COPD with history of smoking. Recommend PFTs as out patient. 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 Patient single and has 3 children. Patient presently alert, awake and resting on 2 litres O2. O2 saturation 98%. Medications and Allergies Allergies Allergy/AdvReac Type Severity Reaction Status Date / Time No Known Allergies Allergy Verified 08/23/18 08:13 Home Medications Medication Instructions Recorded Confirmed Last Taken Type ALBUTEROL Inhaler (OR & NICU) 2 puff IH QID PRN 06/21/16 01/24/19 05/08/18 History [ProAir HFA Inhaler] Atorvastatin Calcium [Lipitor] 20 mg PO QHS 06/21/16 01/24/19 Unknown History Aspirin [Aspirin BABY CHEW TAB] 81 mg PO QDAY 05/08/18 01/24/19 Unknown History ALBUTEROL NEB's [Proventil 0.083% 2.5 mg IH Q6H PRN #7 nebu 05/14/18 01/24/19 Unknown Rx NEBS] Arformoterol Nebu [Brovana Nebu] 15 mcg IH Q12HRT #1 ml 05/14/18 01/24/19 Unknown Rx Metoprolol Succinate [Toprol Xl] 25 mg PO QDAY #30 tab.er.24h 05/14/18 01/24/19 Unknown Rx glipiZIDE XL [Glucotrol Xl] 10 mg PO QDAY #30 tablet 05/14/18 01/24/19 Unknown Rx Cyclobenzaprine [Flexeril 10 MG 10 mg PO BID PRN #20 tablet 08/23/18 01/24/19 Unknown Rx TAB] Budesonide/Formoterol Fumarate 2 puff IH BID 01/24/19 01/24/19 Unknown History [Symbicort 160-4.5 Mcg Inhaler] Bumetanide [Bumetanide 2 mg tab] 2 mg PO DAILY 01/24/19 01/24/19 Unknown History Naproxen [Naprosyn] 500 mg PO BID PRN 01/24/19 01/24/19 Unknown History Sitagliptin Phos/Metformin HCl 1 each PO QDAY 01/24/19 01/24/19 Unknown History [Janumet XR 50-1,000 mg] Active Meds: Active Medications Acetaminophen (Tylenol) 650 mg PO Q4H PRN PRN Reason: Pain MILD(1-3)/Fever >100.5/HANNAH Albuterol (Proventil) 2.5 mg IH Q4HRT PRN PRN Reason: Shortness Of Breath Albuterol/Ipratropium (Duoneb *Not For Prn Use*) 1 ampul IH QIDRT THOMAS Arformoterol Tartrate (Brovana Nebu) 15 mcg IH Q12HRT THOMAS Aspirin (Baby Aspirin) 81 mg PO QDAY THOMAS Atorvastatin Calcium (Lipitor) 20 mg PO QHS THOMAS Budesonide (Pulmicort) 1 mg IH Q12HRT THOMAS Bumetanide (Bumex) 2 mg PO QDAY THOMAS Cyclobenzaprine HCl (Flexeril) 10 mg PO BID PRN PRN Reason: Muscle Spasm Enoxaparin Sodium (Lovenox) 40 mg SUB-Q QDAY@2200 THOMAS Famotidine (Pepcid) 20 mg IV BID THOMAS Glipizide (Glucotrol Xl) 10 mg PO QDAY THOMAS Hydromorphone HCl (Dilaudid) 0.5 mg IV Q3H PRN PRN Reason: Pain , Severe (7-10) Sodium Chloride (Nacl 0.9% 1000 Ml) 1,000 mls @ 42 mls/hr IV DIRECT THOMAS Levofloxacin/Dextrose (Levaquin 750mg/150ml) 750 mg in 150 mls @ 100 mls/hr IV Q24H THOMAS; Protocol Insulin Human Lispro (Humalog) 0 unit SUB-Q ACHS THOMAS; Protocol Methylprednisolone Sodium Succinate (Solu-Medrol) 60 mg IV Q8H [facility] Metoprolol Succinate (Toprol Xl) 25 mg PO QDAY [facility] Miscellaneous Medication (Fluticasone Furoate [Arnuity Ellipta Oral Inh]) 100 mcg IH QDAY [facility] Miscellaneous Medication (Sitagliptin Phos/Metformin Hcl [Janumet Xr 50-1,000 Mg]) 1 each PO QDAY [facility] Naproxen (Naprosyn) 500 mg PO BID PRN PRN Reason: Inflammation Ondansetron HCl (Zofran) 4 mg IV Q8H PRN PRN Reason: Nausea And Vomiting Oxycodone/Acetaminophen (Percocet 5/325) 1 tab PO Q6H PRN PRN Reason: Pain, Moderate (4-6) Sodium Chloride (Sodium Chloride Flush Syringe 10 Ml) 10 ml IV BID [facility] Sodium Chloride (Sodium Chloride Flush Syringe 10 Ml) 10 ml IV PRN PRN PRN Reason: LINE FLUSH Sodium Chloride (Sodium Chloride Flush Syringe 10 Ml) 10 ml IV BID [facility] Sodium Chloride (Sodium Chloride Flush Syringe 10 Ml) 10 ml IV PRN PRN PRN Reason: LINE FLUSH Zolpidem Tartrate (Ambien) 5 mg PO QHS PRN PRN Reason: Insomnia Review of Systems All systems: negative Physical Examination Vital signs: Vital Signs Pulse Resp BP Pulse Ox 122 H 20 165/78 88 01/24/19 08:26 01/24/19 08:26 01/24/19 08:26 01/24/19 08:26 General appearance: no acute distress, alert Eyes: non-icteric ENT: oropharynx moist Neck: supple, no JVD Ascultation: Bilateral: diminished breath sounds Cardiovascular: regular rate and rhythm Gastrointestinal: normoactive bowel sounds, soft, non-tender Integumentary: normal Extremities: no cyanosis, no edema Musculoskeletal: no deformities Gait: poor gait normal mental status, non-focal exam, pupils equal and round mood appropriate Results - Laboratory Findings CBC and BMP: 01/24/19 08:57 01/24/19 09:45 PT/INR, D-dimer PT 13.6 Sec. (12.2-14.9) 01/24/19 08:57 INR 1.07 (0.87-1.13) 01/24/19 08:57 143.29 ng/mlDDU (0-234) 01/24/19 08:57 Abnormal lab findings: Abnormal Labs 01/24/19 01/24/19 01/24/19 00:40 08:57 08:57 WBC 12.6 H Hgb 15.3 H Hct 45.3 H MCV 100 H MCH 34 H Potassium 7.0 H* Carbon Dioxide 33 H Creatinine 0.5 L Glucose 171 H POC Glucose Calcium 8.3 L Total Creatine Kinase 195 H 01/24/19 01/24/19 09:45 17:31 WBC Hgb Hct MCV MCH Potassium Carbon Dioxide Creatinine 0.4 L Glucose 163 H POC Glucose 201 H Calcium 8.1 L Total Creatine Kinase - Diagnostic Findings Chest x-ray: report reviewed (Borderline cardiomegaly and lungs clear.), image reviewed Assessment and Plan 53-year-old -[place] female with history of asthma type 2 diabetes, hyp erlipidemia and hypertension and obstructive sleep apnea constant for increasing wheezing and shortness of breath for 1 week. Wheezing is constant and not improving with nebulizer treatments at home. Patient is not using a CPAP machine on a regular basis.Patient started smoking age 17. 1 pack a day. Patient stopped smoking 8 years ago when she was 45-year-old. Patient started having asthma attacks . No fever or chills. Cough productive of mucoid sputum. Patient says that the air conditioning ducts in her home may be precipitating her asthma attacks. Patient was hypoxic at the time of admission. Patient also has morbid obesity and has history of sleep apnea. This could be COPD with history of smoking. Recommend PFTs as out patient. 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 Patient single and has 3 children. Patient presently alert, awake and resting on 2 litres O2. O2 saturation 98%. - Patient Problems (1) Acute respiratory failure with hypoxia Current Visit: Yes Status: Acute Plan to address problem: O2 2 litres via nasal canula. BIPAP during night time. Albuterol/atrovent aerosol treatments q 6 hours. Continue I/V solumedrol. Continue Levaquin Continue famotidine. ABGs on room air. (2) Acute asthma exacerbation Current Visit: Yes Status: Acute Qualifiers: Asthma severity: severe Plan to address problem: . O2 2 litres via nasal canula. BIPAP during night time. Albuterol/atrovent aerosol treatments q 6 hours. Continue I/V solumedrol. Continue Levaquin Continue famotidine. ABGs on room air. This could be COPD eacerbation also Recommend PFTs as out Patient. (3) Morbid obesity Current Visit: Yes Status: Chronic Plan to address problem: Recommend exercise and diet. Recommend to loose weight. (4) SORAYA (obstructive sleep apnea) Current Visit: Yes Status: Chronic Plan to address problem: Continue BIPAP during night time and use day time prn for shortness of breath. (5) Pulmonary hypertension Current Visit: Yes Status: Chronic Plan to address problem: Likely secondary to COPD and sleep apnea O2 supplementation and treat underlying problems. Recommend Echocardiogram. (6) Type 2 diabetes mellitus Current Visit: Yes Status: Chronic Qualifiers: Diabetes mellitus penitentiary insulin use: without penitentiary use Plan to address problem: Management as per primary care. (7) Acute heart failure with preserved ejection fraction Current Visit: No Status: Acute Plan to address problem: Management as per primary care and cardiology. (8) HTN (hypertension) Current Visit: No Status: Chronic Qualifiers: Hypertension type: essential hypertension Qualified Code(s): I10 - Essential (primary) hypertension Plan to address problem: Management as per primary care.
[2019-01-24] MEDS ORDERED: BROVANA NEBU IH SCH (20:00)
[2019-01-24] MEDS: BROVANA NEBU IH SCH (20:25)
[2019-01-24] MEDS: PULMICORT IH SCH (20:25)
[2019-01-24] MEDS: DUONEB *Not for PRN Use IH SCH (20:35)
[2019-01-24] MEDS: BUMEX PO SCH (20:52)
[2019-01-24] MEDS: BABY ASPIRIN PO SCH (20:53)
[2019-01-24] MEDS: SOLU-Medrol IV SCH (20:53)
[2019-01-24] MEDS: LEVAQUIN 750MG/150ML 750 MG/150 ML BAG IV SCH (20:54)
[2019-01-24] MEDS: TOPROL XL PO SCH (21:07)
[2019-01-24] MEDS: GLUCOTROL XL PO SCH (21:07)
[2019-01-24] MEDS ORDERED: SODIUM CHLORIDE FLUSH SYRINGE 10 ML IV SCH (22:00)
[2019-01-24] MEDS ORDERED: PEPCID IV SCH (22:00)
[2019-01-24] MEDS ORDERED: NON-FORMULARY (Budesonide/Formoterol Fumarate [Symbicort 160-4.5 Mcg Inhaler] 2 PUFF) IH SCH (22:00)
[2019-01-24] MEDS: SITAGLIPTIN PHOS PO SCH (22:09)
[2019-01-24] MEDS: METFORMIN HCL PO SCH (22:09)
[2019-01-24] MEDS: LOVENOX SUB-Q SCH (22:13)
[2019-01-24] MEDS: HumaLOG SUB-Q SCH (22:15)
[2019-01-24] MEDS: SODIUM CHLORIDE FLUSH SYRINGE 10 ML IV SCH (22:16)
[2019-01-24] MEDS: BENADRYL IV PRN (22:35)
[2019-01-25] MEDS: SOLU-Medrol IV SCH ×3 (02:47→21:19)
[2019-01-25] MEDS: TYLENOL PO PRN (03:41)
[2019-01-25 06:05] LABS: Hematocrit 49.2 % (30.3-42.9); Hemoglobin 16.2 gm/dl (10.1-14.3); Mean Corpuscular HGB Conc 33 % (30-34); Mean Corpuscular Volume 103 fl (79-97); Platelet Count 269 K/mm3 (140-440); Red Cell Distribution Width 15.4 % (13.2-15.2)
[2019-01-25 06:19] LABS: Alanine Aminotransferase 13 units/L (7-56); Albumin 3.7 g/dL (3.9-5); BUN/Creatinine Ratio 24; Blood Urea Nitrogen 12 mg/dL (7-17); Calcium 8.8 mg/dL (8.4-10.2); Hemolysis Index 22
[2019-01-25 07:28] LABS: Basophils % (Manual) 0 % (0.0-1.8); Eosinophils % (Manual) 0 % (0.0-4.3); Total Cells Counted 100
[2019-01-25 07:29] LABS: Anisocytosis RARE; Platelet Estimate Consistent w Auto; Poikilocytosis Rare
[2019-01-25] MEDS: BROVANA NEBU IH SCH ×2 (08:08→21:11)
[2019-01-25] MEDS: DUONEB *Not for PRN Use IH SCH ×2 (08:08→12:25)
[2019-01-25] MEDS: PULMICORT IH SCH ×2 (08:08→21:11)
[2019-01-25] MEDS: HumaLOG SUB-Q SCH ×5 (09:43→21:20)
[2019-01-25] MEDS: TOPROL XL PO SCH (09:46)
[2019-01-25] MEDS: GLUCOTROL XL PO SCH (09:46)
[2019-01-25] MEDS: BABY ASPIRIN PO SCH (09:52)
[2019-01-25] MEDS: SITAGLIPTIN PHOS PO SCH (09:53)
[2019-01-25] MEDS: METFORMIN HCL PO SCH (09:53)
[2019-01-25] MEDS: BUMEX PO SCH (09:56)
[2019-01-25] MEDS: SODIUM CHLORIDE FLUSH SYRINGE 10 ML IV SCH ×2 (09:57→21:20)
[2019-01-25] MEDS: FLONASE NS SCH (10:02)
[2019-01-25] MEDS: PEPCID PO SCH ×2 (10:03→21:19)
--- NOTE | 2019-01-25 10:19 | Progress Note ---
Subjective Date of service: 01/25/19 Interval history: Patient is seen today for: Seen and examined at bedside; 24hour events reviewed; nursing and respiratory care staff consulted; no adverse overnight events reported to me; Objective Vital Signs - 12hr 01/24/19 01/25/19 01/25/19 23:13 00:24 03:41 Temperature 98.0 F Pulse Rate 98 H Respiratory 20 18 Rate Blood Pressure 138/81 O2 Sat by Pulse 92 98 Oximetry 01/25/19 01/25/19 01/25/19 04:06 04:47 09:46 Temperature 97.9 F Pulse Rate 107 H 76 Respiratory 20 Rate Blood Pressure 125/69 136/66 O2 Sat by Pulse 93 Oximetry Constitutional: no acute distress, alert Eyes: non-icteric ENT: oropharynx moist Neck: supple, no JVD Ascultation: Bilateral: diminished breath sounds Cardiovascular: regular rate and rhythm Gastrointestinal: normoactive bowel sounds, soft, non-tender Integumentary: normal Extremities: no cyanosis, no edema Neurologic: normal mental status, non-focal exam, pupils equal and round Psychiatric: mood appropriate CBC and BMP: 01/25/19 04:40 01/25/19 04:40 ABG, PT/INR, D-dimer: PT/INR, D-dimer PT 13.6 Sec. (12.2-14.9) 01/24/19 08:57 INR 1.07 (0.87-1.13) 01/24/19 08:57 143.29 ng/mlDDU (0-234) 01/24/19 08:57 Abnormal lab findings: Abnormal Labs 01/24/19 01/24/19 01/24/19 00:40 08:57 08:57 WBC 12.6 H Hgb 15.3 H Hct 45.3 H MCV 100 H MCH 34 H RDW Seg Neuts % (Manual) Lymphocytes % (Manual) Seg Neutrophils # Man Lymphocytes # (Manual) Sodium Potassium 7.0 H* Chloride Carbon Dioxide 33 H Creatinine 0.5 L Glucose 171 H POC Glucose Calcium 8.3 L Total Creatine Kinase 195 H Albumin 01/24/19 01/24/19 01/24/19 09:45 17:31 21:54 WBC Hgb Hct MCV MCH RDW Seg Neuts % (Manual) Lymphocytes % (Manual) Seg Neutrophils # Man Lymphocytes # (Manual) Sodium Potassium Chloride Carbon Dioxide Creatinine 0.4 L Glucose 163 H POC Glucose 201 H 270 H Calcium 8.1 L Total Creatine Kinase Albumin 01/25/19 01/25/19 01/25/19 04:40 04:40 07:40 WBC 12.4 H Hgb 16.2 H Hct 49.2 H MCV 103 H MCH 34 H RDW 15.4 H Seg Neuts % (Manual) 95.0 H Lymphocytes % (Manual) 4.0 L Seg Neutrophils # Man 11.8 H Lymphocytes # (Manual) 0.5 L Sodium 136 L Potassium Chloride 95.0 L Carbon Dioxide Creatinine 0.5 L Glucose 293 H POC Glucose 250 H Calcium Total Creatine Kinase Albumin 3.7 L
--- NOTE | 2019-01-25 14:20 | Progress Note ---
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 2 view CXR reported lungs are clear. -Acute respiratory failure with hypoxia due to acute asthma exacerbation: try to wean off O2, was on 3 liters -Acute asthma exacerbation: treat with steroids, nebs -SORAYA (obstructive sleep apnea) CPAP at nighttime -Type 2 diabetes mellitus: Continue oral hypoglycemics in the form of glipizide and Janumet. Insulin coverage with Humalog before meals and at bedtime. Check hemoglobin A1c. -HTN (hypertension): Continue antihypertensives in the form of metoprolol 25 mg once a day and Bumex 2 mg once a day. -Hyperlipidemia: statin -Hyperkalemia, Secondary to hemolysis: We will repeat the potassium level and treat accordingly -Hypocalcemia, Patient initiated on Caltrate D twice a day -Morbid obesity, bmi 48.7 -DVT prophylaxis: Patient on Lovenox and GI prophylaxis Disposition; continue inpatient care, try to wean off o2 today and possible d/c tomorrow if off O2 History Interval history: Patient was seen and examined. Follow-up on current diagnosis of Asthma, SOB improved. No overnight events reported to me. Patient denies any chest pain, nausea/vomiting or severe headaches. Imaging, nursing note, chart, labs and old chart reviewed. Discussed with patient. Hospitalist Physical - Physical exam Narrative exam: Gen: WDWN, NAD, Awake, Alert, Orientated x 3, bmi 48.7 HEENT: NCAT, EOMI, PERRL, OP Clear Neck: supple, no adenopathy, no thyromegaly, no JVD CVS/Heart: RRR, normal S1S2, pulses present bilaterally Chest/Lungs: mild exp wheezing bilaterally, Symmetrical chest expansion, good air entry bilaterally GI/Abdomen: soft, NTND, good bowel sounds, no guarding or rebound /Bladder: no suprapubic tenderness, no CVA or paraspinal tenderness Extermity/Skin: no c/c/e, no obvious rash MSK: FROM x 4 Neuro: CN 2-12 grossly intact, no new focal deficits Psych: calm - Constitutional Vitals: Temp Pulse Resp BP Pulse Ox 97.9 F 106 H 18 129/67 90 01/25/19 04:06 01/25/19 12:25 01/25/19 12:25 01/25/19 12:17 01/25/19 10:00 General appearance: Present: no acute distress, well-nourished Results - Labs CBC & Chem 7: 01/25/19 04:40 01/25/19 04:40 Labs: Laboratory Last Values WBC 12.4 K/mm3 (4.5-11.0) H 01/25/19 04:40 RBC 4.80 M/mm3 (3.65-5.03) 01/25/19 04:40 Hgb 16.2 gm/dl (10.1-14.3) H 01/25/19 04:40 Hct 49.2 % (30.3-42.9) H 01/25/19 04:40 MCV 103 fl (79-97) H 01/25/19 04:40 MCH 34 pg (28-32) H 01/25/19 04:40 MCHC 33 % (30-34) 01/25/19 04:40 RDW 15.4 % (13.2-15.2) H 01/25/19 04:40 Plt Count 269 K/mm3 (140-440) 01/25/19 04:40 Add Manual Diff Complete 01/25/19 04:40 Total Counted 100 01/25/19 04:40 Seg Neutrophils % [employer] Assembler 01/25/19 04:40 Seg Neuts % (Manual) 95.0 % (40.0-70.0) H 01/25/19 04:40 0 % 01/25/19 04:40 4.0 % (13.4-35.0) L 01/25/19 04:40 Reactive Lymphs % (Man) 0 % 01/25/19 04:40 1.0 % (0.0-7.3) 01/25/19 04:40 0 % (0.0-4.3) 01/25/19 04:40 0 % (0.0-1.8) 01/25/19 04:40 0 % 01/25/19 04:40 0 % 01/25/19 04:40 0 % 01/25/19 04:40 0 % 01/25/19 04:40 Nucleated RBC % Not Reportable 01/25/19 04:40 Seg Neutrophils # Man 11.8 K/mm3 (1.8-7.7) H 01/25/19 04:40 Band Neutrophils # 0.0 K/mm3 01/25/19 04:40 0.5 K/mm3 (1.2-5.4) L 01/25/19 04:40 Abs React Lymphs (Man) 0.0 K/mm3 01/25/19 04:40 0.1 K/mm3 (0.0-0.8) 01/25/19 04:40 0.0 K/mm3 (0.0-0.4) 01/25/19 04:40 0.0 K/mm3 (0.0-0.1) 01/25/19 04:40 0.0 K/mm3 01/25/19 04:40 0.0 K/mm3 01/25/19 04:40 0.0 K/mm3 01/25/19 04:40 Blast Cells # 0.0 K/mm3 01/25/19 04:40 WBC Morphology Not Reportable 01/25/19 04:40 Hypersegmented Neuts Not Reportable 01/25/19 04:40 Hyposegmented Neuts Not Reportable 01/25/19 04:40 Hypogranular Neuts Not Reportable 01/25/19 04:40 Not Reportable 01/25/19 04:40 Not Reportable 01/25/19 04:40 Not Reportable 01/25/19 04:40 Not Reportable 01/25/19 04:40 Not Reportable 01/25/19 04:40 Not Reportable 01/25/19 04:40 Consistent w auto 01/25/19 04:40 Not Reportable 01/25/19 04:40 Plt Clumps, EDTA Not Reportable 01/25/19 04:40 Not Reportable 01/25/19 04:40 Not Reportable 01/25/19 04:40 Not Reportable 01/25/19 04:40 Plt Morphology Comment Not Reportable 01/25/19 04:40 RBC Morphology Not Reportable 01/25/19 04:40 Dimorphic RBCs Not Reportable 01/25/19 04:40 Not Reportable 01/25/19 04:40 Not Reportable 01/25/19 04:40 Rare 01/25/19 04:40 Rare 01/25/19 04:40 Not Reportable 01/25/19 04:40 Not Reportable 01/25/19 04:40 Not Reportable 01/25/19 04:40 Not Reportable 01/25/19 04:40 Not Reportable 01/25/19 04:40 Not Reportable 01/25/19 04:40 Not Reportable 01/25/19 04:40 Not Reportable 01/25/19 04:40 Not Reportable 01/25/19 04:40 Not Reportable 01/25/19 04:40 Not Reportable 01/25/19 04:40 Not Reportable 01/25/19 04:40 Not Reportable 01/25/19 04:40 Not Reportable 01/25/19 04:40 Not Reportable 01/25/19 04:40 Acanthocytes (Spur) Not Reportable 01/25/19 04:40 Rouleaux Not Reportable 01/25/19 04:40 Not Reportable 01/25/19 04:40 Not Reportable 01/25/19 04:40 Not Reportable 01/25/19 04:40 Not Reportable 01/25/19 04:40 Hem Pathologist Commnt No 01/25/19 04:40 PT 13.6 Sec. (12.2-14.9) 01/24/19 08:57 INR 1.07 (0.87-1.13) 01/24/19 08:57 143.29 ng/mlDDU (0-234) 01/24/19 08:57 POC ABG pH 7.368 (7.35-7.45) 01/25/19 13:10 POC ABG pCO2 53.6 (35-45) H 01/25/19 13:10 POC ABG pO2 71 (80-105) L 01/25/19 13:10 POC ABG HCO3 30.8 (22-26 mml/L) 01/25/19 13:10 POC ABG Total CO2 32 (23-27mmol/L) 01/25/19 13:10 POC ABG O2 Sat 93 01/25/19 13:10 POC ABG Base Excess 6 ((-2) - (+3)mmol/L) 01/25/19 13:10 21 % 01/25/19 13:10 Sodium 136 mmol/L (137-145) L 01/25/19 04:40 Potassium 4.7 mmol/L (3.6-5.0) D 01/25/19 04:40 Chloride 95.0 mmol/L (98-107) L 01/25/19 04:40 Carbon Dioxide 27 mmol/L (22-30) 01/25/19 04:40 19 mmol/L 01/25/19 04:40 BUN 12 mg/dL (7-17) 01/25/19 04:40 0.5 mg/dL (0.7-1.2) L 01/25/19 04:40 Estimated GFR > 60 ml/min 01/25/19 04:40 24 % 01/25/19 04:40 Glucose 293 mg/dL (65-100) H 01/25/19 04:40 POC Glucose 250 (70-105) H 01/25/19 07:40 Calcium 8.8 mg/dL (8.4-10.2) 01/25/19 04:40 Magnesium 2.00 mg/dL (1.7-2.3) 01/24/19 08:57 0.40 mg/dL (0.1-1.2) 01/25/19 04:40 AST 14 units/L (5-40) 01/25/19 04:40 ALT 13 units/L (7-56) 01/25/19 04:40 67 units/L (35-129) 01/25/19 04:40 195 units/L (30-135) H 01/24/19 08:57 NT-Pro-B Natriuret Pep 203.8 pg/mL (0-900) 01/24/19 09:45 7.8 g/dL (6.3-8.2) 01/25/19 04:40 3.7 g/dL (3.9-5) L 01/25/19 04:40 0.9 % 01/25/19 04:40 Active Medications - Current Medications Current Medications: Generic Name Dose Route Start Last Admin Trade Name Freq PRN Reason Stop Dose Admin Acetaminophen 650 mg 01/24/19 16:52 01/25/19 03:41 Tylenol PO 650 mg Q4H PRN Administration Pain MILD(1-3)/Fever >100.5/HANNAH Albuterol 2.5 mg 01/24/19 17:06 Proventil IH Q4HRT PRN Shortness Of Breath Albuterol/Ipratropium 1 ampul 01/24/19 20:00 01/25/19 12:25 Duoneb *Not For Prn Use* IH 1 ampul QIDRT THOMAS Administration Arformoterol Tartrate 15 mcg 01/24/19 20:00 01/25/19 08:08 Brovana Nebu IH 15 mcg Q12HRT THOMAS Administration Aspirin 81 mg 01/24/19 18:00 01/25/19 09:52 Baby Aspirin PO 81 mg QDAY THOMAS Administration Atorvastatin Calcium 20 mg 01/24/19 22:00 01/24/19 22:13 Lipitor PO 20 mg QHS THOMAS Administration Budesonide 1 mg 01/24/19 20:00 01/25/19 08:08 Pulmicort IH 1 mg Q12HRT THOMAS Administration Bumetanide 2 mg 01/24/19 20:00 01/25/19 09:56 Bumex PO 2 mg QDAY THOMAS Administration Cyclobenzaprine HCl 10 mg 01/24/19 16:45 Flexeril PO BID PRN Muscle Spasm Diphenhydramine HCl 25 mg 01/24/19 22:20 01/24/19 22:35 Benadryl IV 25 mg Q6H PRN Administration Itching Enoxaparin Sodium 40 mg 01/24/19 22:00 01/24/19 22:13 Lovenox SUB-Q 40 mg QDAY@2200 THOMAS Administration Famotidine 20 mg 01/25/19 10:00 01/25/19 10:03 Pepcid PO 20 mg BID THOMAS Administration Fluticasone Propionate 100 mcg 01/25/19 10:00 01/25/19 10:02 Flonase NS 100 mcg QDAY THOMAS Administration Glipizide 10 mg 01/24/19 17:00 01/25/19 09:46 Glucotrol Xl PO 10 mg QDAY THOMAS Administration Hydromorphone HCl 0.5 mg 01/24/19 16:48 Dilaudid IV Q3H PRN Pain , Severe (7-10) Sodium Chloride 1,000 mls @ 42 mls/hr 01/24/19 17:00 Nacl 0.9% 1000 Ml IV DIRECT THOMAS Levofloxacin/Dextrose 750 mg in 150 mls @ 100 mls/hr 01/24/19 20:00 01/24/19 20:54 Levaquin 750mg/150ml IV 01/28/19 21:29 100 mls/hr Q24H THOMAS Administration Protocol Insulin Human Lispro 0 unit 01/24/19 22:00 01/25/19 09:43 Humalog SUB-Q 4 unit ACHS THOMAS Administration Protocol Methylprednisolone Sodium Succinate 60 mg 01/24/19 18:30 01/25/19 10:04 Solu-Medrol IV 60 mg Q8H THOMAS Administration Metoprolol Succinate 25 mg 01/24/19 17:00 01/25/19 09:46 Toprol Xl PO 25 mg QDAY THOMAS Administration Miscellaneous Medication 1 each 01/24/19 22:00 01/25/19 09:53 Sitagliptin Phos/Metformin Hcl [Janumet Xr 50-1,000 Mg] PO 1 each QDAY THOMAS Administration Naproxen 500 mg 01/24/19 16:45 Naprosyn PO BID PRN Inflammation Ondansetron HCl 4 mg 01/24/19 16:52 Zofran IV Q8H PRN Nausea And Vomiting Oxycodone/Acetaminophen 1 tab 01/24/19 16:48 Percocet 5/325 PO Q6H PRN Pain, Moderate (4-6) Sodium Chloride 10 ml 01/24/19 22:00 01/25/19 09:57 Sodium Chloride Flush Syringe 10 Ml IV 10 ml BID THOMAS Administration Sodium Chloride 10 ml 01/24/19 16:48 Sodium Chloride Flush Syringe 10 Ml IV PRN PRN LINE FLUSH Zolpidem Tartrate 5 mg 01/24/19 16:48 Ambien PO QHS PRN Insomnia
--- NOTE | 2019-01-25 15:01 | Consultation ---
History of Present Illness Consult date: 01/25/19 Requesting physician: JAYE ALEXANDER Reason for consult: dyspnea, asthma History of present illness: 53 y/o morbidly obese AAF followed by Dr. Irwin for SORAYA and asthma admitted with acute asthma exacerbation. Per patient has been suffering from chest tightness for a few days. Per patient she has not been taking her symbicort daily as prescribed. Daughter at bedside. No sick contacts. She does work in the hospital. Positive cough, no sputum. NO fever. Past History Past Medical History: diabetes, hypertension, hyperlipidemia, other (asthma, SORAYA) Past Surgical History: No surgical history Social history: lives with family Family history: no significant family history Medications and Allergies Allergies Allergy/AdvReac Type Severity Reaction Status Date / Time No Known Allergies Allergy Verified 08/23/18 08:13 Home Medications Medication Instructions Recorded Confirmed Last Taken Type ALBUTEROL Inhaler (OR & NICU) 2 puff IH QID PRN 06/21/16 01/24/19 05/08/18 History [ProAir HFA Inhaler] Atorvastatin Calcium [Lipitor] 20 mg PO QHS 06/21/16 01/24/19 Unknown History Aspirin [Aspirin BABY CHEW TAB] 81 mg PO QDAY 05/08/18 01/24/19 Unknown History ALBUTEROL NEB's [Proventil 0.083% 2.5 mg IH Q6H PRN #7 nebu 05/14/18 01/24/19 Unknown Rx NEBS] Arformoterol Nebu [Brovana Nebu] 15 mcg IH Q12HRT #1 ml 05/14/18 01/24/19 Unknown Rx Metoprolol Succinate [Toprol Xl] 25 mg PO QDAY #30 tab.er.24h 05/14/18 01/24/19 Unknown Rx glipiZIDE XL [Glucotrol Xl] 10 mg PO QDAY #30 tablet 05/14/18 01/24/19 Unknown Rx Cyclobenzaprine [Flexeril 10 MG 10 mg PO BID PRN #20 tablet 08/23/18 01/24/19 Unknown Rx TAB] Budesonide/Formoterol Fumarate 2 puff IH BID 01/24/19 01/24/19 Unknown History [Symbicort 160-4.5 Mcg Inhaler] Bumetanide [Bumetanide 2 mg tab] 2 mg PO DAILY 01/24/19 01/24/19 Unknown History Naproxen [Naprosyn] 500 mg PO BID PRN 01/24/19 01/24/19 Unknown History Sitagliptin Phos/Metformin HCl 1 each PO QDAY 01/24/19 01/24/19 Unknown History [Janumet XR 50-1,000 mg] Active Meds: Active Medications Acetaminophen (Tylenol) 650 mg PO Q4H PRN PRN Reason: Pain MILD(1-3)/Fever >100.5/HANNAH Last Admin: 01/25/19 03:41 Dose: 650 mg Documented by: Albuterol (Proventil) 2.5 mg IH Q4HRT PRN PRN Reason: Shortness Of Breath Albuterol/Ipratropium (Duoneb *Not For Prn Use*) 1 ampul IH QIDRT [facility] Last Admin: 01/25/19 12:25 Dose: 1 ampul Documented by: Arformoterol Tartrate (Brovana Nebu) 15 mcg IH Q12HRT [facility] Last Admin: 01/25/19 08:08 Dose: 15 mcg Documented by: Aspirin (Baby Aspirin) 81 mg PO QDAY [facility] Last Admin: 01/25/19 09:52 Dose: 81 mg Documented by: Atorvastatin Calcium (Lipitor) 20 mg PO QHS [facility] Last Admin: 01/24/19 22:13 Dose: 20 mg Documented by: Budesonide (Pulmicort) 1 mg IH Q12HRT [facility] Last Admin: 01/25/19 08:08 Dose: 1 mg Documented by: Bumetanide (Bumex) 2 mg PO QDAY [facility] Last Admin: 01/25/19 09:56 Dose: 2 mg Documented by: Cyclobenzaprine HCl (Flexeril) 10 mg PO BID PRN PRN Reason: Muscle Spasm Diphenhydramine HCl (Benadryl) 25 mg IV Q6H PRN PRN Reason: Itching Last Admin: 01/24/19 22:35 Dose: 25 mg Documented by: Enoxaparin Sodium (Lovenox) 40 mg SUB-Q QDAY@2200 [facility] Last Admin: 01/24/19 22:13 Dose: 40 mg Documented by: Famotidine (Pepcid) 20 mg PO BID [facility] Last Admin: 01/25/19 10:03 Dose: 20 mg Documented by: Fluticasone Propionate (Flonase) 100 mcg NS QDAY [facility] Last Admin: 01/25/19 10:02 Dose: 100 mcg Documented by: Glipizide (Glucotrol Xl) 10 mg PO QDAY [facility] Last Admin: 01/25/19 09:46 Dose: 10 mg Documented by: Hydromorphone HCl (Dilaudid) 0.5 mg IV Q3H PRN PRN Reason: Pain , Severe (7-10) Sodium Chloride (Nacl 0.9% 1000 Ml) 1,000 mls @ 42 mls/hr IV DIRECT [facility] Levofloxacin/Dextrose (Levaquin 750mg/150ml) 750 mg in 150 mls @ 100 mls/hr IV Q24H [facility]; Protocol Stop: 01/28/19 21:29 Last Admin: 01/24/19 20:54 Dose: 100 mls/hr Documented by: Insulin Human Lispro (Humalog) 0 unit SUB-Q ACHS [facility]; Protocol Last Admin: 01/25/19 09:43 Dose: 4 unit Documented by: Metoprolol Succinate (Toprol Xl) 25 mg PO QDAY [facility] Last Admin: 01/25/19 09:46 Dose: 25 mg Documented by: Miscellaneous Medication (Sitagliptin Phos/Metformin Hcl [Janumet Xr 50-1,000 Mg]) 1 each PO QDAY [facility] Last Admin: 01/25/19 09:53 Dose: 1 each Documented by: Naproxen (Naprosyn) 500 mg PO BID PRN PRN Reason: Inflammation Ondansetron HCl (Zofran) 4 mg IV Q8H PRN PRN Reason: Nausea And Vomiting Oxycodone/Acetaminophen (Percocet 5/325) 1 tab PO Q6H PRN PRN Reason: Pain, Moderate (4-6) Sodium Chloride (Sodium Chloride Flush Syringe 10 Ml) 10 ml IV BID [facility] Last Admin: 01/25/19 09:57 Dose: 10 ml Documented by: Sodium Chloride (Sodium Chloride Flush Syringe 10 Ml) 10 ml IV PRN PRN PRN Reason: LINE FLUSH Zolpidem Tartrate (Ambien) 5 mg PO QHS PRN PRN Reason: Insomnia Review of Systems All systems: negative Physical Examination Vital signs: Vital Signs Pulse Resp BP Pulse Ox 122 H 20 165/78 88 01/24/19 08:26 01/24/19 08:26 01/24/19 08:26 01/24/19 08:26 General appearance: no acute distress, alert, other (obese) Eyes: non-icteric ENT: oropharynx moist Neck: supple, other (large in circumference) Effort: normal Ascultation: Bilateral: diminished breath sounds, rales Percussion: Bilateral: not dull Tactile fremitus: Bilateral: normal Cardiovascular: regular rate and rhythm Gastrointestinal: normoactive bowel sounds, soft, non-tender Integumentary: normal Extremities: edema (1-2+ and pitting) Gait: normal gait normal mental status, non-focal exam Results - Laboratory Findings CBC and BMP: 01/25/19 04:40 01/25/19 04:40 ABG POC ABG pH 7.368 (7.35-7.45) 01/25/19 13:10 POC ABG pCO2 53.6 (35-45) H 01/25/19 13:10 POC ABG pO2 71 (80-105) L 01/25/19 13:10 POC ABG HCO3 30.8 (22-26 mml/L) 01/25/19 13:10 POC ABG Total CO2 32 (23-27mmol/L) 01/25/19 13:10 POC ABG O2 Sat 93 01/25/19 13:10 PT/INR, D-dimer PT 13.6 Sec. (12.2-14.9) 01/24/19 08:57 INR 1.07 (0.87-1.13) 01/24/19 08:57 143.29 ng/mlDDU (0-234) 01/24/19 08:57 Abnormal lab findings: Abnormal Labs 01/24/19 01/24/19 01/24/19 00:40 08:57 08:57 WBC 12.6 H Hgb 15.3 H Hct 45.3 H MCV 100 H MCH 34 H RDW Seg Neuts % (Manual) Lymphocytes % (Manual) Seg Neutrophils # Man Lymphocytes # (Manual) POC ABG pCO2 POC ABG pO2 Sodium Potassium 7.0 H* Chloride Carbon Dioxide 33 H Creatinine 0.5 L Glucose 171 H POC Glucose Calcium 8.3 L Total Creatine Kinase 195 H Albumin 01/24/19 01/24/19 01/24/19 09:45 17:31 21:54 WBC Hgb Hct MCV MCH RDW Seg Neuts % (Manual) Lymphocytes % (Manual) Seg Neutrophils # Man Lymphocytes # (Manual) POC ABG pCO2 POC ABG pO2 Sodium Potassium Chloride Carbon Dioxide Creatinine 0.4 L Glucose 163 H POC Glucose 201 H 270 H Calcium 8.1 L Total Creatine Kinase Albumin 01/25/19 01/25/19 01/25/19 04:40 04:40 07:40 WBC 12.4 H Hgb 16.2 H Hct 49.2 H MCV 103 H MCH 34 H RDW 15.4 H Seg Neuts % (Manual) 95.0 H Lymphocytes % (Manual) 4.0 L Seg Neutrophils # Man 11.8 H Lymphocytes # (Manual) 0.5 L POC ABG pCO2 POC ABG pO2 Sodium 136 L Potassium Chloride 95.0 L Carbon Dioxide Creatinine 0.5 L Glucose 293 H POC Glucose 250 H Calcium Total Creatine Kinase Albumin 3.7 L 01/25/19 13:10 WBC Hgb Hct MCV MCH RDW Seg Neuts % (Manual) Lymphocytes % (Manual) Seg Neutrophils # Man Lymphocytes # (Manual) POC ABG pCO2 53.6 H POC ABG pO2 71 L Sodium Potassium Chloride Carbon Dioxide Creatinine Glucose POC Glucose Calcium Total Creatine Kinase Albumin - Diagnostic Findings Chest x-ray: image reviewed (Cardiomegaly) Assessment and Plan 53 y/o female with known asthma and SORAYA admitted with asthma exacerbation. 1. Changed steroids to bID 2. Stopped duonebs 3. Attempt daily net negative state 4. Wean FiO2 to off 5. Will continue to follow along with you.
[2019-01-25] MEDS: LEVAQUIN 750MG/150ML 750 MG/150 ML BAG IV SCH (21:18)
[2019-01-25] MEDS: BENADRYL IV PRN (21:19)
[2019-01-25] MEDS: LOVENOX SUB-Q SCH (21:20)
[2019-01-25] MEDS: PERCOCET 5/325 PO PRN (22:25)
[2019-01-26] MEDS ORDERED: APRESOLINE IV PRN (04:34)
--- NOTE | 2019-01-26 06:56 | Progress Note ---
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 2 view CXR reported lungs are clear. -Acute respiratory failure with hypoxia due to acute asthma exacerbation: try to wean off O2, was on 3 liters -Acute asthma exacerbation: treat with steroids, nebs -SORAYA (obstructive sleep apnea) CPAP at nighttime -Type 2 diabetes mellitus: Continue oral hypoglycemics in the form of glipizide and Janumet. Insulin coverage with Humalog before meals and at bedtime. Check hemoglobin A1c. -HTN (hypertension): Continue antihypertensives in the form of metoprolol 25 mg once a day and Bumex 2 mg once a day. -Hyperlipidemia: statin -Hyperkalemia, Secondary to hemolysis: We will repeat the potassium level and treat accordingly -Hypocalcemia, Patient initiated on Caltrate D twice a day -Morbid obesity, bmi 48.7 -DVT prophylaxis: Patient on Lovenox and GI prophylaxis Disposition; continue inpatient care, try to wean off o2 today and possible d/c today if off O2 and cleared by Dr. Real/PULM==>o2 sats dropped to 86%, d/w dr. real will diuresis her more and try to wean off tomorrow. History Interval history: Patient was seen and examined. Follow-up on current diagnosis of Asthma, SOB improved. No overnight events reported to me. Patient denies any chest pain, nausea/vomiting or severe headaches. Imaging, nursing note, chart, labs and old chart reviewed. Discussed with patient. Hospitalist Physical - Physical exam Narrative exam: Gen: WDWN, NAD, Awake, Alert, Orientated x 3, bmi 48.7 HEENT: NCAT, EOMI, PERRL, OP Clear Neck: supple, no adenopathy, no thyromegaly, no JVD CVS/Heart: RRR, normal S1S2, pulses present bilaterally Chest/Lungs: mild exp wheezing bilaterally, Symmetrical chest expansion, good air entry bilaterally GI/Abdomen: soft, NTND, good bowel sounds, no guarding or rebound /Bladder: no suprapubic tenderness, no CVA or paraspinal tenderness Extermity/Skin: no c/c/e, no obvious rash MSK: FROM x 4 Neuro: CN 2-12 grossly intact, no new focal deficits Psych: calm - Constitutional Vitals: Temp Pulse Resp BP Pulse Ox 97.7 F 77 20 170/103 97 01/26/19 04:28 01/26/19 05:34 01/26/19 05:34 01/26/19 04:22 01/26/19 05:34 General appearance: Present: no acute distress, well-nourished Results - Labs CBC & Chem 7: 01/25/19 04:40 01/25/19 04:40 Labs: Laboratory Last Values WBC 12.4 K/mm3 (4.5-11.0) H 01/25/19 04:40 RBC 4.80 M/mm3 (3.65-5.03) 01/25/19 04:40 Hgb 16.2 gm/dl (10.1-14.3) H 01/25/19 04:40 Hct 49.2 % (30.3-42.9) H 01/25/19 04:40 MCV 103 fl (79-97) H 01/25/19 04:40 MCH 34 pg (28-32) H 01/25/19 04:40 MCHC 33 % (30-34) 01/25/19 04:40 RDW 15.4 % (13.2-15.2) H 01/25/19 04:40 Plt Count 269 K/mm3 (140-440) 01/25/19 04:40 Add Manual Diff Complete 01/25/19 04:40 Total Counted 100 01/25/19 04:40 Seg Neutrophils % Senior Attorney 01/25/19 04:40 Seg Neuts % (Manual) 95.0 % (40.0-70.0) H 01/25/19 04:40 0 % 01/25/19 04:40 4.0 % (13.4-35.0) L 01/25/19 04:40 Reactive Lymphs % (Man) 0 % 01/25/19 04:40 1.0 % (0.0-7.3) 01/25/19 04:40 0 % (0.0-4.3) 01/25/19 04:40 0 % (0.0-1.8) 01/25/19 04:40 0 % 01/25/19 04:40 0 % 01/25/19 04:40 0 % 01/25/19 04:40 0 % 01/25/19 04:40 Nucleated RBC % Not Reportable 01/25/19 04:40 Seg Neutrophils # Man 11.8 K/mm3 (1.8-7.7) H 01/25/19 04:40 Band Neutrophils # 0.0 K/mm3 01/25/19 04:40 0.5 K/mm3 (1.2-5.4) L 01/25/19 04:40 Abs React Lymphs (Man) 0.0 K/mm3 01/25/19 04:40 0.1 K/mm3 (0.0-0.8) 01/25/19 04:40 0.0 K/mm3 (0.0-0.4) 01/25/19 04:40 0.0 K/mm3 (0.0-0.1) 01/25/19 04:40 0.0 K/mm3 01/25/19 04:40 0.0 K/mm3 01/25/19 04:40 0.0 K/mm3 01/25/19 04:40 Blast Cells # 0.0 K/mm3 01/25/19 04:40 WBC Morphology Not Reportable 01/25/19 04:40 Hypersegmented Neuts Not Reportable 01/25/19 04:40 Hyposegmented Neuts Not Reportable 01/25/19 04:40 Hypogranular Neuts Not Reportable 01/25/19 04:40 Not Reportable 01/25/19 04:40 Not Reportable 01/25/19 04:40 Not Reportable 01/25/19 04:40 Not Reportable 01/25/19 04:40 Not Reportable 01/25/19 04:40 Not Reportable 01/25/19 04:40 Consistent w auto 01/25/19 04:40 Not Reportable 01/25/19 04:40 Plt Clumps, EDTA Not Reportable 01/25/19 04:40 Not Reportable 01/25/19 04:40 Not Reportable 01/25/19 04:40 Not Reportable 01/25/19 04:40 Plt Morphology Comment Not Reportable 01/25/19 04:40 RBC Morphology Not Reportable 01/25/19 04:40 Dimorphic RBCs Not Reportable 01/25/19 04:40 Not Reportable 01/25/19 04:40 Not Reportable 01/25/19 04:40 Rare 01/25/19 04:40 Rare 01/25/19 04:40 Not Reportable 01/25/19 04:40 Not Reportable 01/25/19 04:40 Not Reportable 01/25/19 04:40 Not Reportable 01/25/19 04:40 Not Reportable 01/25/19 04:40 Not Reportable 01/25/19 04:40 Not Reportable 01/25/19 04:40 Not Reportable 01/25/19 04:40 Not Reportable 01/25/19 04:40 Not Reportable 01/25/19 04:40 Not Reportable 01/25/19 04:40 Not Reportable 01/25/19 04:40 Not Reportable 01/25/19 04:40 Not Reportable 01/25/19 04:40 Not Reportable 01/25/19 04:40 Acanthocytes (Spur) Not Reportable 01/25/19 04:40 Rouleaux Not Reportable 01/25/19 04:40 Not Reportable 01/25/19 04:40 Not Reportable 01/25/19 04:40 Not Reportable 01/25/19 04:40 Not Reportable 01/25/19 04:40 Hem Pathologist Commnt No 01/25/19 04:40 PT 13.6 Sec. (12.2-14.9) 01/24/19 08:57 INR 1.07 (0.87-1.13) 01/24/19 08:57 143.29 ng/mlDDU (0-234) 01/24/19 08:57 POC ABG pH 7.368 (7.35-7.45) 01/25/19 13:10 POC ABG pCO2 53.6 (35-45) H 01/25/19 13:10 POC ABG pO2 71 (80-105) L 01/25/19 13:10 POC ABG HCO3 30.8 (22-26 mml/L) 01/25/19 13:10 POC ABG Total CO2 32 (23-27mmol/L) 01/25/19 13:10 POC ABG O2 Sat 93 01/25/19 13:10 POC ABG Base Excess 6 ((-2) - (+3)mmol/L) 01/25/19 13:10 21 % 01/25/19 13:10 Sodium 136 mmol/L (137-145) L 01/25/19 04:40 Potassium 4.7 mmol/L (3.6-5.0) D 01/25/19 04:40 Chloride 95.0 mmol/L (98-107) L 01/25/19 04:40 Carbon Dioxide 27 mmol/L (22-30) 01/25/19 04:40 19 mmol/L 01/25/19 04:40 BUN 12 mg/dL (7-17) 01/25/19 04:40 0.5 mg/dL (0.7-1.2) L 01/25/19 04:40 Estimated GFR > 60 ml/min 01/25/19 04:40 24 % 01/25/19 04:40 Glucose 293 mg/dL (65-100) H 01/25/19 04:40 POC Glucose 254 (70-105) H 01/25/19 21:12 Calcium 8.8 mg/dL (8.4-10.2) 01/25/19 04:40 Magnesium 2.00 mg/dL (1.7-2.3) 01/24/19 08:57 0.40 mg/dL (0.1-1.2) 01/25/19 04:40 AST 14 units/L (5-40) 01/25/19 04:40 ALT 13 units/L (7-56) 01/25/19 04:40 67 units/L (35-129) 01/25/19 04:40 195 units/L (30-135) H 01/24/19 08:57 NT-Pro-B Natriuret Pep 203.8 pg/mL (0-900) 01/24/19 09:45 7.8 g/dL (6.3-8.2) 01/25/19 04:40 3.7 g/dL (3.9-5) L 01/25/19 04:40 0.9 % 01/25/19 04:40 Active Medications - Current Medications Current Medications: Generic Name Dose Route Start Last Admin Trade Name Freq PRN Reason Stop Dose Admin Acetaminophen 650 mg 01/24/19 16:52 01/25/19 03:41 Tylenol PO 650 mg Q4H PRN Administration Pain MILD(1-3)/Fever >100.5/HANNAH Albuterol 2.5 mg 01/24/19 17:06 Proventil IH Q4HRT PRN Shortness Of Breath Arformoterol Tartrate 15 mcg 01/24/19 20:00 01/25/19 21:11 Brovana Nebu IH 15 mcg Q12HRT THOMAS Administration Aspirin 81 mg 01/24/19 18:00 01/25/19 09:52 Baby Aspirin PO 81 mg QDAY THOMAS Administration Atorvastatin Calcium 20 mg 01/24/19 22:00 01/25/19 21:19 Lipitor PO 20 mg QHS THOMAS Administration Budesonide 1 mg 01/24/19 20:00 01/25/19 21:11 Pulmicort IH 1 mg Q12HRT THOMAS Administration Bumetanide 2 mg 01/24/19 20:00 01/25/19 09:56 Bumex PO 2 mg QDAY THOMAS Administration Cyclobenzaprine HCl 10 mg 01/24/19 16:45 Flexeril PO BID PRN Muscle Spasm Diphenhydramine HCl 25 mg 01/24/19 22:20 01/25/19 21:19 Benadryl IV 25 mg Q6H PRN Administration Itching Enoxaparin Sodium 40 mg 01/24/19 22:00 01/25/19 21:20 Lovenox SUB-Q 40 mg QDAY@2200 THOMAS Administration Famotidine 20 mg 01/25/19 10:00 01/25/19 21:19 Pepcid PO 20 mg BID THOMAS Administration Fluticasone Propionate 100 mcg 01/25/19 10:00 01/25/19 10:02 Flonase NS 100 mcg QDAY THOMAS Administration Glipizide 10 mg 01/24/19 17:00 01/25/19 09:46 Glucotrol Xl PO 10 mg QDAY THOMAS Administration Hydralazine HCl 10 mg 01/26/19 04:34 01/26/19 04:41 Apresoline IV 10 mg Q4HR PRN Administration Blood Pressure Hydromorphone HCl 0.5 mg 01/24/19 16:48 Dilaudid IV Q3H PRN Pain , Severe (7-10) Sodium Chloride 1,000 mls @ 42 mls/hr 01/24/19 17:00 Nacl 0.9% 1000 Ml IV DIRECT THOMAS Levofloxacin/Dextrose 750 mg in 150 mls @ 100 mls/hr 01/24/19 20:00 01/25/19 21:18 Levaquin 750mg/150ml IV 01/28/19 21:29 100 mls/hr Q24H THOMAS Administration Protocol Insulin Human Lispro 0 unit 01/24/19 22:00 01/25/19 21:20 Humalog SUB-Q 4 unit ACHS THOMAS Administration Protocol Methylprednisolone Sodium Succinate 60 mg 01/25/19 22:00 01/25/19 21:19 Solu-Medrol IV 60 mg Q12HR THOMAS Administration Metoprolol Succinate 25 mg 01/24/19 17:00 01/25/19 09:46 Toprol Xl PO 25 mg QDAY THOMAS Administration Miscellaneous Medication 1 each 01/24/19 22:00 01/25/19 09:53 Sitagliptin Phos/Metformin Hcl [Janumet Xr 50-1,000 Mg] PO 1 each QDAY THOMAS Administration Naproxen 500 mg 01/24/19 16:45 Naprosyn PO BID PRN Inflammation Ondansetron HCl 4 mg 01/24/19 16:52 Zofran IV Q8H PRN Nausea And Vomiting Oxycodone/Acetaminophen 1 tab 01/24/19 16:48 01/25/19 22:25 Percocet 5/325 PO 1 tab Q6H PRN Administration Pain, Moderate (4-6) Sodium Chloride 10 ml 01/24/19 22:00 01/25/19 21:20 Sodium Chloride Flush Syringe 10 Ml IV 10 ml BID THOMAS Administration Sodium Chloride 10 ml 01/24/19 16:48 Sodium Chloride Flush Syringe 10 Ml IV PRN PRN LINE FLUSH Zolpidem Tartrate 5 mg 01/24/19 16:48 Ambien PO QHS PRN Insomnia
[2019-01-26] MEDS: PULMICORT IH SCH ×2 (10:01→20:03)
[2019-01-26] MEDS: BROVANA NEBU IH SCH ×2 (10:02→20:03)
[2019-01-26] MEDS: BUMEX PO SCH (10:46)
[2019-01-26] MEDS: PEPCID PO SCH ×2 (10:46→21:47)
[2019-01-26] MEDS: GLUCOTROL XL PO SCH (10:46)
[2019-01-26] MEDS: SOLU-Medrol IV SCH ×2 (10:46→21:47)
[2019-01-26] MEDS: TOPROL XL PO SCH (10:46)
[2019-01-26] MEDS: BABY ASPIRIN PO SCH (10:46)
[2019-01-26] MEDS: SITAGLIPTIN PHOS PO SCH (10:47)
[2019-01-26] MEDS: HumaLOG SUB-Q SCH ×4 (10:47→21:46)
[2019-01-26] MEDS: METFORMIN HCL PO SCH (10:47)
[2019-01-26] MEDS: SODIUM CHLORIDE FLUSH SYRINGE 10 ML IV SCH ×2 (10:48→21:50)
[2019-01-26] MEDS: FLONASE NS SCH (13:26)
--- NOTE | 2019-01-26 15:13 | Progress Note ---
Assessment and Plan 53 y/o female with known asthma and SORAYA admitted with asthma exacerbation. 1. Continue BID steroids 2. Stopped PO bumex and will attempt IV for the next 24-48 hours. 3. continue pulmicort and brovana 4. CPAP at night. Subjective Date of service: 01/26/19 Interval history: Walked today and she desatted to 86%. Sitting up in chair and at rest room air sat is above 90. Wants to go home. Family is not at bedside. Several staff members present. Objective Vital Signs - 12hr 01/26/19 01/26/19 01/26/19 04:22 04:28 05:34 Temperature 97.7 F Pulse Rate 89 77 Respiratory 22 20 Rate Blood Pressure 170/103 O2 Sat by Pulse 96 97 Oximetry 01/26/19 01/26/19 09:00 09:23 Temperature 97.4 F L Pulse Rate 90 99 H Respiratory 20 Rate Blood Pressure 155/69 O2 Sat by Pulse 97 Oximetry Constitutional: no acute distress, alert, other (obese) Eyes: non-icteric ENT: oropharynx moist Neck: supple, other (large in circumference) Effort: normal Ascultation: Bilateral: diminished breath sounds, rales Percussion: Bilateral: not dull Tactile fremitus: Bilateral: normal Cardiovascular: regular rate and rhythm Gastrointestinal: normoactive bowel sounds, soft, non-tender Integumentary: normal Extremities: edema (1-2+ and pitting) Neurologic: normal mental status, non-focal exam Psychiatric: mood appropriate CBC and BMP: 01/25/19 04:40 01/25/19 04:40 ABG, PT/INR, D-dimer: ABG POC ABG pH 7.368 (7.35-7.45) 01/25/19 13:10 POC ABG pCO2 53.6 (35-45) H 01/25/19 13:10 POC ABG pO2 71 (80-105) L 01/25/19 13:10 POC ABG HCO3 30.8 (22-26 mml/L) 01/25/19 13:10 POC ABG Total CO2 32 (23-27mmol/L) 01/25/19 13:10 POC ABG O2 Sat 93 01/25/19 13:10 PT/INR, D-dimer PT 13.6 Sec. (12.2-14.9) 01/24/19 08:57 INR 1.07 (0.87-1.13) 01/24/19 08:57 143.29 ng/mlDDU (0-234) 01/24/19 08:57 Abnormal lab findings: Abnormal Labs 01/24/19 01/24/19 01/24/19 00:40 08:57 08:57 WBC 12.6 H Hgb 15.3 H Hct 45.3 H MCV 100 H MCH 34 H RDW Seg Neuts % (Manual) Lymphocytes % (Manual) Seg Neutrophils # Man Lymphocytes # (Manual) POC ABG pCO2 POC ABG pO2 Sodium Potassium 7.0 H* Chloride Carbon Dioxide 33 H Creatinine 0.5 L Glucose 171 H POC Glucose Calcium 8.3 L Total Creatine Kinase 195 H Albumin 01/24/19 01/24/19 01/24/19 09:45 17:31 21:54 WBC Hgb Hct MCV MCH RDW Seg Neuts % (Manual) Lymphocytes % (Manual) Seg Neutrophils # Man Lymphocytes # (Manual) POC ABG pCO2 POC ABG pO2 Sodium Potassium Chloride Carbon Dioxide Creatinine 0.4 L Glucose 163 H POC Glucose 201 H 270 H Calcium 8.1 L Total Creatine Kinase Albumin 01/25/19 01/25/19 01/25/19 04:40 04:40 07:40 WBC 12.4 H Hgb 16.2 H Hct 49.2 H MCV 103 H MCH 34 H RDW 15.4 H Seg Neuts % (Manual) 95.0 H Lymphocytes % (Manual) 4.0 L Seg Neutrophils # Man 11.8 H Lymphocytes # (Manual) 0.5 L POC ABG pCO2 POC ABG pO2 Sodium 136 L Potassium Chloride 95.0 L Carbon Dioxide Creatinine 0.5 L Glucose 293 H POC Glucose 250 H Calcium Total Creatine Kinase Albumin 3.7 L 01/25/19 01/25/19 01/25/19 11:31 13:10 17:07 WBC Hgb Hct MCV MCH RDW Seg Neuts % (Manual) Lymphocytes % (Manual) Seg Neutrophils # Man Lymphocytes # (Manual) POC ABG pCO2 53.6 H POC ABG pO2 71 L Sodium Potassium Chloride Carbon Dioxide Creatinine Glucose POC Glucose 288 H 237 H Calcium Total Creatine Kinase Albumin 01/25/19 01/26/19 01/26/19 21:12 08:01 12:49 WBC Hgb Hct MCV MCH RDW Seg Neuts % (Manual) Lymphocytes % (Manual) Seg Neutrophils # Man Lymphocytes # (Manual) POC ABG pCO2 POC ABG pO2 Sodium Potassium Chloride Carbon Dioxide Creatinine Glucose POC Glucose 254 H 186 H 254 H Calcium Total Creatine Kinase Albumin
[2019-01-26] MEDS ORDERED: BUMEX IV ONE (16:00)
[2019-01-26] MEDS: LEVAQUIN 750MG/150ML 750 MG/150 ML BAG IV SCH (21:46)
[2019-01-26] MEDS: LOVENOX SUB-Q SCH (21:47)
[2019-01-26] MEDS: BENADRYL IV PRN (21:57)
[2019-01-26] MEDS: TYLENOL PO PRN (22:02)
[2019-01-27] MEDS: BROVANA NEBU IH SCH ×2 (07:46→20:59)
[2019-01-27] MEDS: PULMICORT IH SCH ×2 (07:46→20:59)
[2019-01-27] MEDS: BUMEX IV SCH ×2 (08:25→17:24)
[2019-01-27] MEDS: HumaLOG SUB-Q SCH ×4 (08:25→21:50)
[2019-01-27] MEDS: BABY ASPIRIN PO SCH (09:37)
[2019-01-27] MEDS: TOPROL XL PO SCH (09:37)
[2019-01-27] MEDS: SOLU-Medrol IV SCH ×2 (09:38→21:49)
[2019-01-27] MEDS: PEPCID PO SCH ×2 (09:38→21:49)
[2019-01-27] MEDS: GLUCOTROL XL PO SCH (09:38)
[2019-01-27] MEDS: SODIUM CHLORIDE FLUSH SYRINGE 10 ML IV SCH ×2 (09:39→21:49)
[2019-01-27] MEDS: METFORMIN HCL PO SCH (09:41)
[2019-01-27] MEDS: SITAGLIPTIN PHOS PO SCH (09:41)
[2019-01-27] MEDS: FLONASE NS SCH (11:07)
[2019-01-27] MEDS: PERCOCET 5/325 PO PRN ×2 (13:00→21:49)
--- NOTE | 2019-01-27 13:45 | Progress Note ---
Assessment and Plan 53 y/o female with known asthma and SORAYA admitted with asthma exacerbation. 1. Continue BID steroids 2. one more day of IV bumex 3. continue pulmicort and brovana 4. CPAP at night. 5. Will discharge tomorrow, question is will she need O2. Will walk again on evaluation and determine. Subjective Date of service: 01/27/19 Interval history: Walked today, droppped to 87. Better than yesterday. Good diuresis. Remainder is negative. Objective Vital Signs - 12hr 01/27/19 01/27/19 01/27/19 04:28 04:30 07:46 Temperature 97.5 F L Pulse Rate 94 H Pulse Rate [ 91 H Anterior Bilateral Throughout] Pulse Rate [ Apical] Respiratory 20 Rate Respiratory 20 Rate [Anterior Bilateral Throughout] Blood Pressure 129/66 O2 Sat by Pulse 94 97 Oximetry 01/27/19 01/27/19 01/27/19 08:23 09:37 10:00 Temperature 98.2 F Pulse Rate 108 H 108 H Pulse Rate [ Anterior Bilateral Throughout] Pulse Rate [ 108 H Apical] Respiratory 18 20 Rate Respiratory Rate [Anterior Bilateral Throughout] Blood Pressure 139/79 139/79 O2 Sat by Pulse 93 Oximetry 01/27/19 12:33 Temperature 98.4 F Pulse Rate 83 Pulse Rate [ Anterior Bilateral Throughout] Pulse Rate [ Apical] Respiratory 18 Rate Respiratory Rate [Anterior Bilateral Throughout] Blood Pressure 143/79 O2 Sat by Pulse 96 Oximetry Constitutional: no acute distress, alert, other (obese) Eyes: non-icteric ENT: oropharynx moist Neck: supple, other (large in circumference) Effort: normal Ascultation: Bilateral: diminished breath sounds, rales Percussion: Bilateral: not dull Tactile fremitus: Bilateral: normal Cardiovascular: regular rate and rhythm Gastrointestinal: normoactive bowel sounds, soft, non-tender Integumentary: normal Extremities: edema (1-2+ and pitting) Neurologic: normal mental status, non-focal exam Psychiatric: mood appropriate CBC and BMP: 01/25/19 04:40 01/25/19 04:40 ABG, PT/INR, D-dimer: ABG POC ABG pH 7.368 (7.35-7.45) 01/25/19 13:10 POC ABG pCO2 53.6 (35-45) H 01/25/19 13:10 POC ABG pO2 71 (80-105) L 01/25/19 13:10 POC ABG HCO3 30.8 (22-26 mml/L) 01/25/19 13:10 POC ABG Total CO2 32 (23-27mmol/L) 01/25/19 13:10 POC ABG O2 Sat 93 01/25/19 13:10 PT/INR, D-dimer PT 13.6 Sec. (12.2-14.9) 01/24/19 08:57 INR 1.07 (0.87-1.13) 01/24/19 08:57 143.29 ng/mlDDU (0-234) 01/24/19 08:57 Abnormal lab findings: Abnormal Labs 01/24/19 01/24/19 01/24/19 00:40 08:57 08:57 WBC 12.6 H Hgb 15.3 H Hct 45.3 H MCV 100 H MCH 34 H RDW Seg Neuts % (Manual) Lymphocytes % (Manual) Seg Neutrophils # Man Lymphocytes # (Manual) POC ABG pCO2 POC ABG pO2 Sodium Potassium 7.0 H* Chloride Carbon Dioxide 33 H Creatinine 0.5 L Glucose 171 H POC Glucose Calcium 8.3 L Total Creatine Kinase 195 H Albumin 01/24/19 01/24/19 01/24/19 09:45 17:31 21:54 WBC Hgb Hct MCV MCH RDW Seg Neuts % (Manual) Lymphocytes % (Manual) Seg Neutrophils # Man Lymphocytes # (Manual) POC ABG pCO2 POC ABG pO2 Sodium Potassium Chloride Carbon Dioxide Creatinine 0.4 L Glucose 163 H POC Glucose 201 H 270 H Calcium 8.1 L Total Creatine Kinase Albumin 01/25/19 01/25/19 01/25/19 04:40 04:40 07:40 WBC 12.4 H Hgb 16.2 H Hct 49.2 H MCV 103 H MCH 34 H RDW 15.4 H Seg Neuts % (Manual) 95.0 H Lymphocytes % (Manual) 4.0 L Seg Neutrophils # Man 11.8 H Lymphocytes # (Manual) 0.5 L POC ABG pCO2 POC ABG pO2 Sodium 136 L Potassium Chloride 95.0 L Carbon Dioxide Creatinine 0.5 L Glucose 293 H POC Glucose 250 H Calcium Total Creatine Kinase Albumin 3.7 L 01/25/19 01/25/19 01/25/19 11:31 13:10 17:07 WBC Hgb Hct MCV MCH RDW Seg Neuts % (Manual) Lymphocytes % (Manual) Seg Neutrophils # Man Lymphocytes # (Manual) POC ABG pCO2 53.6 H POC ABG pO2 71 L Sodium Potassium Chloride Carbon Dioxide Creatinine Glucose POC Glucose 288 H 237 H Calcium Total Creatine Kinase Albumin 01/25/19 01/26/19 01/26/19 21:12 08:01 12:49 WBC Hgb Hct MCV MCH RDW Seg Neuts % (Manual) Lymphocytes % (Manual) Seg Neutrophils # Man Lymphocytes # (Manual) POC ABG pCO2 POC ABG pO2 Sodium Potassium Chloride Carbon Dioxide Creatinine Glucose POC Glucose 254 H 186 H 254 H Calcium Total Creatine Kinase Albumin 01/26/19 01/26/19 01/27/19 16:39 21:27 08:26 WBC Hgb Hct MCV MCH RDW Seg Neuts % (Manual) Lymphocytes % (Manual) Seg Neutrophils # Man Lymphocytes # (Manual) POC ABG pCO2 POC ABG pO2 Sodium Potassium Chloride Carbon Dioxide Creatinine Glucose POC Glucose 171 H 287 H 172 H Calcium Total Creatine Kinase Albumin 01/27/19 11:29 WBC Hgb Hct MCV MCH RDW Seg Neuts % (Manual) Lymphocytes % (Manual) Seg Neutrophils # Man Lymphocytes # (Manual) POC ABG pCO2 POC ABG pO2 Sodium Potassium Chloride Carbon Dioxide Creatinine Glucose POC Glucose 259 H Calcium Total Creatine Kinase Albumin
--- NOTE | 2019-01-27 13:46 | Progress Note ---
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 2 view CXR reported lungs are clear. -Acute respiratory failure with hypoxia due to acute asthma exacerbation: try to wean off O2, was on 3 liters -Acute asthma exacerbation: treat with steroids, nebs -SORAYA (obstructive sleep apnea) CPAP at nighttime -Type 2 diabetes mellitus: Continue oral hypoglycemics in the form of glipizide and Janumet. Insulin coverage with Humalog before meals and at bedtime. Check hemoglobin A1c. -HTN (hypertension): Continue antihypertensives in the form of metoprolol 25 mg once a day and Bumex 2 mg once a day. -Hyperlipidemia: statin -Hyperkalemia, Secondary to hemolysis: We will repeat the potassium level and treat accordingly -Hypocalcemia, Patient initiated on Caltrate D twice a day -Morbid obesity, bmi 48.7 -DVT prophylaxis: Patient on Lovenox and GI prophylaxis Disposition; continue inpatient care, o2 sats dropped to 87% today, hopefully home tomorrow with or without O, another day for IV diuretics History Interval history: Patient was seen and examined. Follow-up on current diagnosis of Asthma, SOB improved. No overnight events reported to me. Patient denies any chest pain, nausea/vomiting or severe headaches. Imaging, nursing note, chart, labs and old chart reviewed. Discussed with patient. Hospitalist Physical - Physical exam Narrative exam: Gen: WDWN, NAD, Awake, Alert, Orientated x 3, bmi 48.7 HEENT: NCAT, EOMI, PERRL, OP Clear Neck: supple, no adenopathy, no thyromegaly, no JVD CVS/Heart: RRR, normal S1S2, pulses present bilaterally Chest/Lungs: mild exp wheezing bilaterally, Symmetrical chest expansion, good air entry bilaterally GI/Abdomen: soft, NTND, good bowel sounds, no guarding or rebound /Bladder: no suprapubic tenderness, no CVA or paraspinal tenderness Extermity/Skin: no c/c/e, no obvious rash MSK: FROM x 4 Neuro: CN 2-12 grossly intact, no new focal deficits Psych: calm - Constitutional Vitals: Temp Pulse Resp BP Pulse Ox 98.4 F 83 18 143/79 96 01/27/19 12:33 01/27/19 12:33 01/27/19 12:33 01/27/19 12:33 01/27/19 12:33 General appearance: Present: no acute distress, well-nourished Results - Labs CBC & Chem 7: 01/25/19 04:40 01/25/19 04:40 Labs: Laboratory Last Values WBC 12.4 K/mm3 (4.5-11.0) H 01/25/19 04:40 RBC 4.80 M/mm3 (3.65-5.03) 01/25/19 04:40 Hgb 16.2 gm/dl (10.1-14.3) H 01/25/19 04:40 Hct 49.2 % (30.3-42.9) H 01/25/19 04:40 MCV 103 fl (79-97) H 01/25/19 04:40 MCH 34 pg (28-32) H 01/25/19 04:40 MCHC 33 % (30-34) 01/25/19 04:40 RDW 15.4 % (13.2-15.2) H 01/25/19 04:40 Plt Count 269 K/mm3 (140-440) 01/25/19 04:40 Add Manual Diff Complete 01/25/19 04:40 Total Counted 100 01/25/19 04:40 Seg Neutrophils % Pocketed Spring Assembler 01/25/19 04:40 Seg Neuts % (Manual) 95.0 % (40.0-70.0) H 01/25/19 04:40 0 % 01/25/19 04:40 4.0 % (13.4-35.0) L 01/25/19 04:40 Reactive Lymphs % (Man) 0 % 01/25/19 04:40 1.0 % (0.0-7.3) 01/25/19 04:40 0 % (0.0-4.3) 01/25/19 04:40 0 % (0.0-1.8) 01/25/19 04:40 0 % 01/25/19 04:40 0 % 01/25/19 04:40 0 % 01/25/19 04:40 0 % 01/25/19 04:40 Nucleated RBC % Not Reportable 01/25/19 04:40 Seg Neutrophils # Man 11.8 K/mm3 (1.8-7.7) H 01/25/19 04:40 Band Neutrophils # 0.0 K/mm3 01/25/19 04:40 0.5 K/mm3 (1.2-5.4) L 01/25/19 04:40 Abs React Lymphs (Man) 0.0 K/mm3 01/25/19 04:40 0.1 K/mm3 (0.0-0.8) 01/25/19 04:40 0.0 K/mm3 (0.0-0.4) 01/25/19 04:40 0.0 K/mm3 (0.0-0.1) 01/25/19 04:40 0.0 K/mm3 01/25/19 04:40 0.0 K/mm3 01/25/19 04:40 0.0 K/mm3 01/25/19 04:40 Blast Cells # 0.0 K/mm3 01/25/19 04:40 WBC Morphology Not Reportable 01/25/19 04:40 Hypersegmented Neuts Not Reportable 01/25/19 04:40 Hyposegmented Neuts Not Reportable 01/25/19 04:40 Hypogranular Neuts Not Reportable 01/25/19 04:40 Not Reportable 01/25/19 04:40 Not Reportable 01/25/19 04:40 Not Reportable 01/25/19 04:40 Not Reportable 01/25/19 04:40 Not Reportable 01/25/19 04:40 Not Reportable 01/25/19 04:40 Consistent w auto 01/25/19 04:40 Not Reportable 01/25/19 04:40 Plt Clumps, EDTA Not Reportable 01/25/19 04:40 Not Reportable 01/25/19 04:40 Not Reportable 01/25/19 04:40 Not Reportable 01/25/19 04:40 Plt Morphology Comment Not Reportable 01/25/19 04:40 RBC Morphology Not Reportable 01/25/19 04:40 Dimorphic RBCs Not Reportable 01/25/19 04:40 Not Reportable 01/25/19 04:40 Not Reportable 01/25/19 04:40 Rare 01/25/19 04:40 Rare 01/25/19 04:40 Not Reportable 01/25/19 04:40 Not Reportable 01/25/19 04:40 Not Reportable 01/25/19 04:40 Not Reportable 01/25/19 04:40 Not Reportable 01/25/19 04:40 Not Reportable 01/25/19 04:40 Not Reportable 01/25/19 04:40 Not Reportable 01/25/19 04:40 Not Reportable 01/25/19 04:40 Not Reportable 01/25/19 04:40 Not Reportable 01/25/19 04:40 Not Reportable 01/25/19 04:40 Not Reportable 01/25/19 04:40 Not Reportable 01/25/19 04:40 Not Reportable 01/25/19 04:40 Acanthocytes (Spur) Not Reportable 01/25/19 04:40 Rouleaux Not Reportable 01/25/19 04:40 Not Reportable 01/25/19 04:40 Not Reportable 01/25/19 04:40 Not Reportable 01/25/19 04:40 Not Reportable 01/25/19 04:40 Hem Pathologist Commnt No 01/25/19 04:40 PT 13.6 Sec. (12.2-14.9) 01/24/19 08:57 INR 1.07 (0.87-1.13) 01/24/19 08:57 143.29 ng/mlDDU (0-234) 01/24/19 08:57 POC ABG pH 7.368 (7.35-7.45) 01/25/19 13:10 POC ABG pCO2 53.6 (35-45) H 01/25/19 13:10 POC ABG pO2 71 (80-105) L 01/25/19 13:10 POC ABG HCO3 30.8 (22-26 mml/L) 01/25/19 13:10 POC ABG Total CO2 32 (23-27mmol/L) 01/25/19 13:10 POC ABG O2 Sat 93 01/25/19 13:10 POC ABG Base Excess 6 ((-2) - (+3)mmol/L) 01/25/19 13:10 21 % 01/25/19 13:10 Sodium 136 mmol/L (137-145) L 01/25/19 04:40 Potassium 4.7 mmol/L (3.6-5.0) D 01/25/19 04:40 Chloride 95.0 mmol/L (98-107) L 01/25/19 04:40 Carbon Dioxide 27 mmol/L (22-30) 01/25/19 04:40 19 mmol/L 01/25/19 04:40 BUN 12 mg/dL (7-17) 01/25/19 04:40 0.5 mg/dL (0.7-1.2) L 01/25/19 04:40 Estimated GFR > 60 ml/min 01/25/19 04:40 24 % 01/25/19 04:40 Glucose 293 mg/dL (65-100) H 01/25/19 04:40 POC Glucose 259 (70-105) H 01/27/19 11:29 Calcium 8.8 mg/dL (8.4-10.2) 01/25/19 04:40 Magnesium 2.00 mg/dL (1.7-2.3) 01/24/19 08:57 0.40 mg/dL (0.1-1.2) 01/25/19 04:40 AST 14 units/L (5-40) 01/25/19 04:40 ALT 13 units/L (7-56) 01/25/19 04:40 67 units/L (35-129) 01/25/19 04:40 195 units/L (30-135) H 01/24/19 08:57 NT-Pro-B Natriuret Pep 203.8 pg/mL (0-900) 01/24/19 09:45 7.8 g/dL (6.3-8.2) 01/25/19 04:40 3.7 g/dL (3.9-5) L 01/25/19 04:40 0.9 % 01/25/19 04:40 Active Medications - Current Medications Current Medications: Generic Name Dose Route Start Last Admin Trade Name Freq PRN Reason Stop Dose Admin Acetaminophen 650 mg 01/24/19 16:52 01/26/19 22:02 Tylenol PO 650 mg Q4H PRN Administration Pain MILD(1-3)/Fever >100.5/HANNAH Albuterol 2.5 mg 01/24/19 17:06 Proventil IH Q4HRT PRN Shortness Of Breath Arformoterol Tartrate 15 mcg 01/24/19 20:00 01/27/19 07:46 Brovana Nebu IH 15 mcg Q12HRT THOMAS Administration Aspirin 81 mg 01/24/19 18:00 01/27/19 09:37 Baby Aspirin PO 81 mg QDAY THOMAS Administration Atorvastatin Calcium 20 mg 01/24/19 22:00 01/26/19 21:47 Lipitor PO 20 mg QHS THOMAS Administration Budesonide 1 mg 01/24/19 20:00 01/27/19 07:46 Pulmicort IH 1 mg Q12HRT THOMAS Administration Bumetanide 1 mg 01/27/19 06:00 01/27/19 08:25 Bumex IV 1 mg BID@0600,1800 THOMAS Administration Cyclobenzaprine HCl 10 mg 01/24/19 16:45 Flexeril PO BID PRN Muscle Spasm Diphenhydramine HCl 25 mg 01/24/19 22:20 01/26/19 21:57 Benadryl IV 25 mg Q6H PRN Administration Itching Enoxaparin Sodium 40 mg 01/24/19 22:00 01/26/19 21:47 Lovenox SUB-Q 40 mg QDAY@2200 THOMAS Administration Famotidine 20 mg 01/25/19 10:00 01/27/19 09:38 Pepcid PO 20 mg BID THOMAS Administration Fluticasone Propionate 100 mcg 01/25/19 10:00 01/27/19 11:07 Flonase NS Not Given QDAY THOMAS Glipizide 10 mg 01/24/19 17:00 01/27/19 09:38 Glucotrol Xl PO 10 mg QDAY THOMAS Administration Hydralazine HCl 10 mg 01/26/19 04:34 01/26/19 04:41 Apresoline IV 10 mg Q4HR PRN Administration Blood Pressure Hydromorphone HCl 0.5 mg 01/24/19 16:48 Dilaudid IV Q3H PRN Pain , Severe (7-10) Sodium Chloride 1,000 mls @ 42 mls/hr 01/24/19 17:00 Nacl 0.9% 1000 Ml IV DIRECT THOMAS Levofloxacin/Dextrose 750 mg in 150 mls @ 100 mls/hr 01/24/19 20:00 01/26/19 21:46 Levaquin 750mg/150ml IV 01/28/19 21:29 100 mls/hr Q24H THOMAS Administration Protocol Insulin Human Lispro 0 unit 01/24/19 22:00 01/27/19 12:55 Humalog SUB-Q 4 unit ACHS THOMAS Administration Protocol Methylprednisolone Sodium Succinate 60 mg 01/25/19 22:00 01/27/19 09:38 Solu-Medrol IV 60 mg Q12HR THOMAS Administration Metoprolol Succinate 25 mg 01/24/19 17:00 01/27/19 09:37 Toprol Xl PO 25 mg QDAY THOMAS Administration Miscellaneous Medication 1 each 01/24/19 22:00 01/27/19 09:41 Sitagliptin Phos/Metformin Hcl [Janumet Xr 50-1,000 Mg] PO 1 each QDAY THOMAS Administration Naproxen 500 mg 01/24/19 16:45 Naprosyn PO BID PRN Inflammation Ondansetron HCl 4 mg 01/24/19 16:52 Zofran IV Q8H PRN Nausea And Vomiting Oxycodone/Acetaminophen 1 tab 01/24/19 16:48 01/25/19 22:25 Percocet 5/325 PO 1 tab Q6H PRN Administration Pain, Moderate (4-6) Sodium Chloride 10 ml 01/24/19 22:00 01/27/19 09:39 Sodium Chloride Flush Syringe 10 Ml IV 10 ml BID THOMAS Administration Sodium Chloride 10 ml 01/24/19 16:48 Sodium Chloride Flush Syringe 10 Ml IV PRN PRN LINE FLUSH Zolpidem Tartrate 5 mg 01/24/19 16:48 Ambien PO QHS PRN Insomnia
[2019-01-27] MEDS: LEVAQUIN 750MG/150ML 750 MG/150 ML BAG IV SCH (21:48)
[2019-01-27] MEDS: LOVENOX SUB-Q SCH (21:49)
[2019-01-27] MEDS: BENADRYL IV PRN (21:49)
[2019-01-28] MEDS: BUMEX IV SCH (05:56)
[2019-01-28] MEDS: PULMICORT IH SCH (07:19)
[2019-01-28] MEDS: BROVANA NEBU IH SCH (07:19)
[2019-01-28 08:23] VITALS: BP 119/64
[2019-01-28] MEDS: SOLU-Medrol IV SCH (09:09)
[2019-01-28] MEDS: GLUCOTROL XL PO SCH (09:09)
[2019-01-28] MEDS: PEPCID PO SCH (09:09)
[2019-01-28] MEDS: TOPROL XL PO SCH (09:09)
[2019-01-28] MEDS: BABY ASPIRIN PO SCH (09:09)
[2019-01-28] MEDS: HumaLOG SUB-Q SCH ×2 (09:11→12:30)
[2019-01-28] MEDS: SITAGLIPTIN PHOS PO SCH (09:13)
[2019-01-28] MEDS: METFORMIN HCL PO SCH (09:13)
[2019-01-28] MEDS: SODIUM CHLORIDE FLUSH SYRINGE 10 ML IV SCH (09:30)
[2019-01-28] MEDS: FLONASE NS SCH (11:57)
--- NOTE | 2019-01-28 14:00 | Discharge Summary ---
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 2 view CXR reported lungs are clear. -Acute respiratory failure with hypoxia due to acute asthma exacerbation: try to wean off O2, was on 3 liters -Acute asthma exacerbation: treat with steroids, nebs -SORAYA (obstructive sleep apnea) CPAP at nighttime -Type 2 diabetes mellitus: Continue oral hypoglycemics in the form of glipizide and Janumet. Insulin coverage with Humalog before meals and at bedtime. Check hemoglobin A1c. -HTN (hypertension): Continue antihypertensives in the form of metoprolol 25 mg once a day and Bumex 2 mg once a day. -Hyperlipidemia: statin -Hyperkalemia, Secondary to hemolysis: We will repeat the potassium level and treat accordingly -Hypocalcemia, Patient initiated on Caltrate D twice a day -Morbid obesity, bmi 48.7 -DVT prophylaxis: Patient on Lovenox and GI prophylaxis o2 dropped to 86% RA with activity Disposition: TO HOME OR SELFCARE Time spent for discharge: 36 minutes Core Measure Documentation - Palliative Care Palliative Care/ Comfort Measures: Not Applicable - Core Measures Any of the following diagnoses?: none - VTE Discharge Requirements Deep Vein Thrombosis/Pulmonary Embolism Present on Admission: No Has pt received <5 days of overlap therapy or INR<2.0: No Anticoagulant overlap therapy prescribed at discharge: No Contraindication No Overlap Therapy order at DC: Not Indicated Exam - Physical Exam Narrative exam: Gen: WDWN, NAD, Awake, Alert, Orientated x 3, bmi 48.7 HEENT: NCAT, EOMI, PERRL, OP Clear Neck: supple, no adenopathy, no thyromegaly, no JVD CVS/Heart: RRR, normal S1S2, pulses present bilaterally Chest/Lungs: mild exp wheezing bilaterally, Symmetrical chest expansion, good air entry bilaterally GI/Abdomen: soft, NTND, good bowel sounds, no guarding or rebound /Bladder: no suprapubic tenderness, no CVA or paraspinal tenderness Extermity/Skin: no c/c/e, no obvious rash MSK: FROM x 4 Neuro: CN 2-12 grossly intact, no new focal deficits Psych: calm - Constitutional Vitals: Temp Pulse Resp BP Pulse Ox 98.1 F 80 18 119/64 93 01/28/19 07:55 01/28/19 09:09 01/28/19 10:00 01/28/19 09:09 01/28/19 10:00 Plan Activity: other (no strenous activity or work unless cleared by Dr. Irwin) Diet: low salt, diabetic Durable Medical Equipment Needed Upon Discharge: Oxygen Follow up with: [facility] MD GREGORY [Primary Care Provider] - 3-5 Days SELENE IRWIN MD [Staff Physician] - 7 Days Prescriptions: predniSONE [Deltasone] 1 dose PO QDAY #48 tab glipiZIDE XL [Glucotrol Xl] 10 mg PO QDAY #30 tablet levoFLOXacin [Levaquin] 750 mg PO QDAY #4 tablet oxyCODONE /ACETAMINOPHEN [Percocet 5/325 mg] 1 tab PO Q6H PRN #15 tablet PRN Reason: Pain , Severe (7-10)
== END 2019-01-28 17:18 | disposition home or self-care (01) | DRG 189 ==
LOC: ED 08:24 → 4A 12:34 → OBSVTOIN 01-25 14:13
PROVIDERS: ADMIT Internal Medicine; ATTEND Internal Medicine
PROC: 4A033R1 Measurement of Arterial Saturation, Peripheral, Percutaneous Approach (ICD-10-PCS; principal; 2019-01-25)
PROC: 5A09357 Assistance with Respiratory Ventilation, Less than 24 Consecutive Hours, Continuous Positive Airway Pressure (ICD-10-PCS; 2019-01-25)
PROC: 5A09357 Assistance with Respiratory Ventilation, Less than 24 Consecutive Hours, Continuous Positive Airway Pressure (ICD-10-PCS; 2019-01-26)
PROC: 5A09357 Assistance with Respiratory Ventilation, Less than 24 Consecutive Hours, Continuous Positive Airway Pressure (ICD-10-PCS; 2019-01-28)
DX: J96.01 Acute respiratory failure with hypoxia (principal); J45.901 Unspecified asthma with (acute) exacerbation; Z68.42 Body mass index [BMI] 45.0-49.9, adult; E66.01 Morbid (severe) obesity due to excess calories; I27.20 Pulmonary hypertension, unspecified; I11.0 Hypertensive heart disease with heart failure; I50.9 Heart failure, unspecified; E11.9 Type 2 diabetes mellitus without complications; G47.33 Obstructive sleep apnea (adult) (pediatric); E78.2 Mixed hyperlipidemia; E87.5 Hyperkalemia; E83.51 Hypocalcemia; Z79.84 Long term (current) use of oral hypoglycemic drugs; Z79.82 Long term (current) use of aspirin
CPT/HCPCS: 36415; 36600; 71046; 80048; 80053; 82550; 82803; 82962; 83735; 83880; 85007; 85025; 85027; 85379; 85610; 93005; 93010; 94640; 94644; 94660; 94760; G0378; A9270-GY; J0360; J1200; J1650; J1815; J1956; J2930; J3475; J7040

== ENCOUNTER 2019-10-26 06:29 | Inpatient (IN) | payer BC, OTHER ==
[2019-10-26] MEDS ORDERED: IPRATROPIUM 0.02% NEBU 2.5 ML IH ONE ×2 (06:41→06:42)
[2019-10-26] MEDS ORDERED: ALBUTEROL 2.5 MG/3 ML NEBU IH ONE ×2 (06:41→06:42)
[2019-10-26] MEDS ORDERED: methylPREDNISolone Sod Succinate 125 MG/2 ML INJ IV ONE (06:42)
[2019-10-26] MEDS ORDERED: EPINEPHrine/PF (1:1,000) 1 MG/1 ML INJ SUB-Q ONE (06:42)
[2019-10-26] MEDS ORDERED: SODIUM CHLORIDE 0.9% 500 ML 500 ML IV ONE (06:42)
[2019-10-26] MEDS ORDERED: MAGNESIUM SULFATE 2 GM/50 ML BAG IV ONE (06:42)
--- NOTE | 2019-10-26 06:53 | Emergency Department Report ---
ED General Adult HPI - General Chief complaint: Dyspnea/Respdistress Stated complaint: DIFFICULTY IN BREATHING PUI?: Yes Time Seen by Provider: 10/26/19 06:33 Source: patient, RN notes reviewed, old records reviewed Mode of arrival: Wheelchair Limitations: Physical Limitation - History of Present Illness Initial comments: Pulmonology: Dr. Irwin Past medical history: Obesity, diabetes, sleep apnea, reactive airway disease Please note for for this patient's entire encounter, I had on complete personal protective equipment. The patient is a 54-year-old female whom I evaluated in the past, with the aforementioned past medical history, prior admissions for respiratory failure secondary to asthma/reactive airway disease, presenting to the ER with 1 week of painless shortness of breath. The patient is an employee at this hospital. To the best of her knowledge, she has not had any interactions with anyone with confirmed COVID. She denies DVT and pulmonary embolism risk factors. She denies physical pain at this time. There is no complaint of headache, neck pain, chest pain, abdominal pain, urinary symptoms, focal extremity weakness and or numbness. Symptoms worsen with physical exertion, decreased with rest and position. -: Gradual, days(s) Improves with: rest Worsens with: movement - Related Data Home Medications Medication Instructions Recorded Confirmed Last Taken AtorvaSTATin [Lipitor] 20 mg PO QHS 10/26/19 10/26/19 Unknown Bumetanide 2 mg PO QDAY 10/26/19 10/26/19 Unknown Loratadine [Claritin] 10 mg PO QDAY 10/26/19 10/26/19 Unknown Metoprolol Xl [Metoprolol 50 mg PO QDAY 10/26/19 10/26/19 Unknown SUCCINATE ER TAB] Sertraline [Zoloft] 50 mg PO QDAY 10/26/19 10/26/19 Unknown glipiZIDE XL [Glucotrol Xl] 10 mg PO QAM 10/26/19 10/26/19 Unknown Allergies Allergy/AdvReac Type Severity Reaction Status Date / Time No Known Allergies Allergy Verified 08/23/18 08:13 ED Review of Systems ROS: Stated complaint: DIFFICULTY IN BREATHING Other details as noted in HPI Comment: Unobtainable due to pts medical conditions Constitutional: malaise, weakness ENT: congestion Respiratory: shortness of breath, SOB with exertion, SOB at rest, wheezing Cardiovascular: denies: syncope Gastrointestinal: denies: abdominal pain Genitourinary: as per HPI Musculoskeletal: as per HPI Skin: as per HPI Neurological: as per HPI Psychiatric: as per HPI Hematological/Lymphatic: as per HPI ED Past Medical Hx - Past Medical History Hx Hypertension: Yes Hx Congestive Heart Failure: Yes Hx Diabetes: Yes Hx Asthma: Yes Hx COPD: No Additional medical history: Morbid Obesity - Social History Smoking Status: Former Smoker - Medications Home Medications: Home Medications Medication Instructions Recorded Confirmed Last Taken Type AtorvaSTATin [Lipitor] 20 mg PO QHS 10/26/19 10/26/19 Unknown History Bumetanide 2 mg PO QDAY 10/26/19 10/26/19 Unknown History Loratadine [Claritin] 10 mg PO QDAY 10/26/19 10/26/19 Unknown History Metoprolol Xl [Metoprolol 50 mg PO QDAY 10/26/19 10/26/19 Unknown History SUCCINATE ER TAB] Sertraline [Zoloft] 50 mg PO QDAY 10/26/19 10/26/19 Unknown History glipiZIDE XL [Glucotrol Xl] 10 mg PO QAM 10/26/19 10/26/19 Unknown History ED Physical Exam - General Limitations: Physical Limitation General appearance: alert, anxious, in distress, obese - Head Head exam: Present: atraumatic, normocephalic - Eye Eye exam: Present: normal appearance - ENT ENT exam: Present: normal exam, normal orophraynx, normal external ear exam - Neck Neck exam: Present: normal inspection, full ROM. Absent: tenderness, meningismus - Respiratory Respiratory exam: Present: respiratory distress, wheezes, rhonchi - Cardiovascular Cardiovascular Exam: Present: normal rhythm, tachycardia, normal heart sounds. Absent: systolic murmur, diastolic murmur, rubs, gallop - GI/Abdominal GI/Abdominal exam: Present: soft. Absent: distended, tenderness, guarding, rebound, rigid, pulsatile mass - Extremities Exam Extremities exam: Present: normal inspection, full ROM, other (2+ pulses noted in the bilateral upper and lower extremities. There is no palpable cord. negative Homans sign. Muscular compartments are soft. The pelvis is stable.). Absent: pedal edema, calf tenderness - Back Exam Back exam: Present: normal inspection. Absent: tenderness, CVA tenderness (R), CVA tenderness (L), paraspinal tenderness, vertebral tenderness - Neurological Exam Neurological exam: Present: alert, normal gait, other (No facial droop. Tongue midline. Extraocular movements intact bilaterally. Facial sensation intact to light touch in V1, V2, V3 distribution bilaterally. 5 and a 5 strength in 4 extremities. Sensation intact to light touch in 4 extremities.) - Psychiatric Psychiatric exam: Present: anxious - Skin Skin exam: Present: warm, dry, intact, normal color. Absent: rash ED Course Vital Signs 10/26/19 10/26/19 10/26/19 07:11 07:16 07:18 Temperature 101.1 F H Pulse Rate 120 H 109 H Pulse Rate [ Bilateral] Respiratory 40 H 40 H 25 H Rate Respiratory Rate [Bilateral ] Blood Pressure 152/79 Blood Pressure 150/95 [Left] O2 Sat by Pulse 84 91 100 Oximetry 10/26/19 10/26/19 10/26/19 07:24 08:30 08:42 Temperature Pulse Rate 117 H Pulse Rate [ 114 H Bilateral] Respiratory 21 Rate Respiratory 20 Rate [Bilateral ] Blood Pressure 148/74 Blood Pressure [Left] O2 Sat by Pulse 98 Oximetry 10/26/19 10/26/19 10/26/19 09:00 09:21 09:30 Temperature Pulse Rate 121 H 112 H Pulse Rate [ Bilateral] Respiratory 14 19 Rate Respiratory Rate [Bilateral ] Blood Pressure 122/67 101/81 Blood Pressure [Left] O2 Sat by Pulse 95 Oximetry 10/26/19 10/26/19 10/26/19 10:00 10:29 11:00 Temperature Pulse Rate 112 H 103 H Pulse Rate [ Bilateral] Respiratory 17 21 Rate Respiratory Rate [Bilateral ] Blood Pressure 111/70 147/81 Blood Pressure [Left] O2 Sat by Pulse 95 Oximetry 10/26/19 10/26/19 10/26/19 11:30 11:36 11:37 Temperature 98.6 F Pulse Rate 102 H 103 H Pulse Rate [ Bilateral] Respiratory 17 Rate Respiratory Rate [Bilateral ] Blood Pressure 140/88 153/96 Blood Pressure [Left] O2 Sat by Pulse 93 Oximetry 10/26/19 10/26/19 10/26/19 12:00 13:03 13:10 Temperature Pulse Rate 119 H 102 H Pulse Rate [ Bilateral] Respiratory 21 18 Rate Respiratory Rate [Bilateral ] Blood Pressure 160/91 145/90 Blood Pressure [Left] O2 Sat by Pulse 94 Oximetry 10/26/19 10/26/19 10/26/19 13:20 13:30 13:40 Temperature Pulse Rate 101 H 97 H 95 H Pulse Rate [ Bilateral] Respiratory 15 22 21 Rate Respiratory Rate [Bilateral ] Blood Pressure 137/95 137/95 160/103 Blood Pressure [Left] O2 Sat by Pulse Oximetry 10/26/19 10/26/19 10/26/19 13:50 14:00 14:18 Temperature Pulse Rate Pulse Rate [ Bilateral] Respiratory Rate Respiratory Rate [Bilateral ] Blood Pressure 159/104 158/90 162/96 Blood Pressure [Left] O2 Sat by Pulse Oximetry 10/26/19 10/26/19 14:22 14:30 Temperature Pulse Rate 103 H Pulse Rate [ Bilateral] Respiratory Rate Respiratory Rate [Bilateral ] Blood Pressure 162/96 158/90 Blood Pressure [Left] O2 Sat by Pulse Oximetry - Reevaluation(s) Reevaluation #1: 10/26/19 06:51 Differential diagnosis, including but not limited to: Bronchitis, asthma, reactive airway disease, pneumonia, viral syndrome, respiratory failure Assessment and plan: 54-year-old female, morbidly obese, has known history of reactive airway disease, presenting with cough, wheezing, shortness of breath, hypoxia. Patient placed on isolation empirically. Screening labs ordered to assess risk for cytokine storm. Do not suspect pulmonary embolism at this time. Patient will be placed on BiPAP, she will be given albuterol, epinephrine, Solu- Medrol, magnesium, gentle fluids, she will be admitted to the medical service once her initial diagnostics have resulted. Discussed plan of care with patient who is amenable to this plan of care. Reevaluation #2: 10/26/19 07:20 Fever and tachycardia are reviewed and appreciated. However, given propensity for patients with coronavirus to develop acute respiratory distress syndrome, the patient will not be served by a 30 cc/kg bolus of IV fluids. We will give her gentle hydration, acetaminophen, empiric antibiotics, discussed with pulmonary on-call, infectious disease, and admit the patient to the medical service once her initial diagnostics have resulted. - Consultations Consultation #1: 10/26/19 07:38 discussed patient's history, physical, pertinent laboratory studies with pulmon melanie on-call, Dr. Riddle, his group will follow in consultation. Hospital physician, Dr. Isaacs to admit Hypomagnesemia is reviewed and appreciated, we will treat this with intravenous magnesium.. Consultation #2: 10/26/19 08:16 Discussed history, physical, pertinent laboratory studies and exam with infectious disease on-call, Dr. Lee, agrees with current plan of management, and indicates his group will follow in consultation. ED Medical Decision Making - Lab Data Result diagrams: 10/27/19 08:56 10/27/19 08:56 Vital Signs 10/26/19 07:11 Temperature 101.1 F H Pulse Rate 120 H Respiratory 40 H Rate Blood Pressure 150/95 [Left] O2 Sat by Pulse 84 Oximetry Lab Results 10/26/19 10/26/19 Range/Units 06:49 07:00 WBC 6.7 (4.5-11.0) K/mm3 RBC 4.90 (3.65-5.03) M/mm3 Hgb 17.3 H (10.1-14.3) gm/dl Hct 51.0 H (30.3-42.9) % MCV 104 H (79-97) fl MCH 35 H (28-32) pg MCHC 34 (30-34) % RDW 17.4 H (13.2-15.2) % Plt Count 150 (140-440) K/mm3 Lymph % (Auto) 30.9 (13.4-35.0) % Barton % (Auto) 8.4 H (0.0-7.3) % Eos % (Auto) 0.1 (0.0-4.3) % Baso % (Auto) 0.4 (0.0-1.8) % Lymph # 2.1 (1.2-5.4) K/mm3 Barton # 0.6 (0.0-0.8) K/mm3 Eos # 0.0 (0.0-0.4) K/mm3 Baso # 0.0 (0.0-0.1) K/mm3 Seg Neutrophils % 60.2 (40.0-70.0) % Seg Neutrophils # 4.1 (1.8-7.7) K/mm3 ABG pH 7.375 (7.350-7.450) pH Units ABG pCO2 52.3 mm Hg ABG pO2 195.8 H (80.0-90.0) mm Hg ABG HCO3 29.9 H (20.0-26.0) mmol/L ABG O2 Content 21.4 (0.0-44) ABG Base Excess 3.4 H (-2.0-3.0) mmol/L FiO2 32 % Vital Signs 10/26/19 10/26/19 10/26/19 07:11 07:16 07:18 Temperature 101.1 F H Pulse Rate 120 H 109 H Pulse Rate [ Bilateral] Respiratory 40 H 40 H 25 H Rate Respiratory Rate [Bilateral ] Blood Pressure 152/79 Blood Pressure 150/95 [Left] O2 Sat by Pulse 84 91 100 Oximetry 10/26/19 07:24 Temperature Pulse Rate Pulse Rate [ 114 H Bilateral] Respiratory Rate Respiratory 20 Rate [Bilateral ] Blood Pressure Blood Pressure [Left] O2 Sat by Pulse Oximetry Lab Results 10/26/19 10/26/19 10/26/19 Range/Units 06:49 06:49 06:49 WBC 6.7 (4.5-11.0) K/mm3 RBC 4.90 (3.65-5.03) M/mm3 Hgb 17.3 H (10.1-14.3) gm/dl Hct 51.0 H (30.3-42.9) % MCV 104 H (79-97) fl MCH 35 H (28-32) pg MCHC 34 (30-34) % RDW 17.4 H (13.2-15.2) % Plt Count 150 (140-440) K/mm3 Lymph % (Auto) 30.9 (13.4-35.0) % Barton % (Auto) 8.4 H (0.0-7.3) % Eos % (Auto) 0.1 (0.0-4.3) % Baso % (Auto) 0.4 (0.0-1.8) % Lymph # 2.1 (1.2-5.4) K/mm3 Barton # 0.6 (0.0-0.8) K/mm3 Eos # 0.0 (0.0-0.4) K/mm3 Baso # 0.0 (0.0-0.1) K/mm3 Seg Neutrophils % 60.2 (40.0-70.0) % Seg Neutrophils # 4.1 (1.8-7.7) K/mm3 PT 14.4 (12.2-14.9) Sec. INR 1.11 (0.87-1.13) D-Dimer 334.49 H (0-234) ng/mlDDU ABG pH (7.350-7.450) pH Units ABG pCO2 mm Hg ABG pO2 (80.0-90.0) mm Hg ABG HCO3 (20.0-26.0) mmol/L ABG O2 Saturation (95.0-99.0) % ABG O2 Content (0.0-44) ABG Base Excess (-2.0-3.0) mmol/L ABG Hemoglobin (12.0-16.0) gm/dl ABG Carboxyhemoglobin (0.0-5.0) % ABG Methemoglobin (0.0-1.5) % Oxyhemoglobin (95.0-99.0) % FiO2 % Sodium 137 (137-145) mmol/L Potassium 3.6 (3.6-5.0) mmol/L Chloride 95.8 L (98-107) mmol/L Carbon Dioxide 26 (22-30) mmol/L Anion Gap 19 mmol/L BUN 5 L (7-17) mg/dL Creatinine 0.6 L (0.7-1.2) mg/dL Estimated GFR > 60 ml/min BUN/Creatinine Ratio 8 % Glucose 180 H (65-100) mg/dL Lactic Acid (0.7-2.0) mmol/L Calcium 8.3 L (8.4-10.2) mg/dL Magnesium 1.40 L (1.7-2.3) mg/dL Ferritin (13.0-400.0) ng/mL Lactate Dehydrogenase 284 H (91-180) units/L Total Creatine Kinase (30-135) units/L C-Reactive Protein 4.00 H (0.00-1.30) mg/dL 10/26/19 10/26/19 10/26/19 Range/Units 06:49 06:49 06:49 WBC (4.5-11.0) K/mm3 RBC (3.65-5.03) M/mm3 Hgb (10.1-14.3) gm/dl Hct (30.3-42.9) % MCV (79-97) fl MCH (28-32) pg MCHC (30-34) % RDW (13.2-15.2) % Plt Count (140-440) K/mm3 Lymph % (Auto) (13.4-35.0) % Barton % (Auto) (0.0-7.3) % Eos % (Auto) (0.0-4.3) % Baso % (Auto) (0.0-1.8) % Lymph # (1.2-5.4) K/mm3 Barton # (0.0-0.8) K/mm3 Eos # (0.0-0.4) K/mm3 Baso # (0.0-0.1) K/mm3 Seg Neutrophils % (40.0-70.0) % Seg Neutrophils # (1.8-7.7) K/mm3 PT (12.2-14.9) Sec. INR (0.87-1.13) D-Dimer (0-234) ng/mlDDU ABG pH (7.350-7.450) pH Units ABG pCO2 mm Hg ABG pO2 (80.0-90.0) mm Hg ABG HCO3 (20.0-26.0) mmol/L ABG O2 Saturation (95.0-99.0) % ABG O2 Content (0.0-44) ABG Base Excess (-2.0-3.0) mmol/L ABG Hemoglobin (12.0-16.0) gm/dl ABG Carboxyhemoglobin (0.0-5.0) % ABG Methemoglobin (0.0-1.5) % Oxyhemoglobin (95.0-99.0) % FiO2 % Sodium (137-145) mmol/L Potassium (3.6-5.0) mmol/L Chloride (98-107) mmol/L Carbon Dioxide (22-30) mmol/L Anion Gap mmol/L BUN (7-17) mg/dL Creatinine (0.7-1.2) mg/dL Estimated GFR ml/min BUN/Creatinine Ratio % Glucose (65-100) mg/dL Lactic Acid 2.00 (0.7-2.0) mmol/L Calcium (8.4-10.2) mg/dL Magnesium 1.40 L (1.7-2.3) mg/dL Ferritin 182.5 (13.0-400.0) ng/mL Lactate Dehydrogenase (91-180) units/L Total Creatine Kinase 65 (30-135) units/L C-Reactive Protein (0.00-1.30) mg/dL 10/26/19 Range/Units 07:00 WBC (4.5-11.0) K/mm3 RBC (3.65-5.03) M/mm3 Hgb (10.1-14.3) gm/dl Hct (30.3-42.9) % MCV (79-97) fl MCH (28-32) pg MCHC (30-34) % RDW (13.2-15.2) % Plt Count (140-440) K/mm3 Lymph % (Auto) (13.4-35.0) % Barton % (Auto) (0.0-7.3) % Eos % (Auto) (0.0-4.3) % Baso % (Auto) (0.0-1.8) % Lymph # (1.2-5.4) K/mm3 Barton # (0.0-0.8) K/mm3 Eos # (0.0-0.4) K/mm3 Baso # (0.0-0.1) K/mm3 Seg Neutrophils % (40.0-70.0) % Seg Neutrophils # (1.8-7.7) K/mm3 PT (12.2-14.9) Sec. INR (0.87-1.13) D-Dimer (0-234) ng/mlDDU ABG pH 7.375 (7.350-7.450) pH Units ABG pCO2 52.3 mm Hg ABG pO2 195.8 H (80.0-90.0) mm Hg ABG HCO3 29.9 H (20.0-26.0) mmol/L ABG O2 Saturation 99.2 H (95.0-99.0) % ABG O2 Content 21.4 (0.0-44) ABG Base Excess 3.4 H (-2.0-3.0) mmol/L ABG Hemoglobin 17.1 H (12.0-16.0) gm/dl ABG Carboxyhemoglobin 1.7 (0.0-5.0) % ABG Methemoglobin 0.6 (0.0-1.5) % Oxyhemoglobin 96.9 (95.0-99.0) % FiO2 32 % Sodium (137-145) mmol/L Potassium (3.6-5.0) mmol/L Chloride (98-107) mmol/L Carbon Dioxide (22-30) mmol/L Anion Gap mmol/L BUN (7-17) mg/dL Creatinine (0.7-1.2) mg/dL Estimated GFR ml/min BUN/Creatinine Ratio % Glucose (65-100) mg/dL Lactic Acid (0.7-2.0) mmol/L Calcium (8.4-10.2) mg/dL Magnesium (1.7-2.3) mg/dL Ferritin (13.0-400.0) ng/mL Lactate Dehydrogenase (91-180) units/L Total Creatine Kinase (30-135) units/L C-Reactive Protein (0.00-1.30) mg/dL - EKG Data 10/26/19 08:33 This is a sinus rhythm, tachycardia, 113 bpm, left axis deviation, motion artifact, poor R wave progression, QTC is prolonged, borderline left anterior fascicular block, the EKG is abnormal, it is not a STEMI - Radiology Data Radiology results: image reviewed interpreted by me: X-ray of the chest shows poor inspiratory effort, lower lobe atelectasis in the left hemithorax, question right-sided perihilar infiltrates. Critical Care Time: Yes Critical care time in (mins) excluding proc time.: 60 Critical care attestation.: If time is entered above; I have spent that time in minutes in the direct care of this critically ill patient, excluding procedure time. ED Disposition Clinical Impression: Morbid obesity, Hypoxemia, Acute respiratory failure with hypoxia, Suspected 2019 novel coronavirus infection, Hypomagnesemia Disposition: OP ADMIT IP TO THIS HOSP Is pt being admited?: Yes Condition: Serious
[2019-10-26] MEDS ORDERED: ACETAMINOPHEN 500 MG TAB PO ONE (07:15)
[2019-10-26] MEDS ORDERED: cefTRIAXone/NS 1 GM/50 ML 1 GM/50 ML BAG IV ONE (07:17)
[2019-10-26 07:20] LABS: Basophils % (Auto) 0.4 % (0.0-1.8); Eosinophils % (Auto) 0.1 % (0.0-4.3); Hemoglobin 17.3 gm/dl (10.1-14.3); Lymphocytes # (Auto) 2.1 K/mm3 (1.2-5.4); Lymphocytes % (Auto) 30.9 % (13.4-35.0); Mean Corpuscular HGB Conc 34 % (30-34); Mean Corpuscular Volume 104 fl (79-97); Monocytes # (Auto) 0.6 K/mm3 (0.0-0.8); Monocytes % (Auto) 8.4 % (0.0-7.3); Platelet Count 150 K/mm3 (140-440); Red Cell Distribution Width 17.4 % (13.2-15.2)
[2019-10-26 07:20] LABS: ABG Base Excess 3.4 mmol/L (-2.0-3.0); ABG HCO3 29.9 mmol/L (20.0-26.0); ABG PCO2 52.3 mm Hg; ABG PH 7.375 pH Units (7.350-7.450); ABG PO2 195.8 mm Hg (80.0-90.0)
[2019-10-26 07:23] LABS: ABG Methemoglobin 0.6 % (0.0-1.5); ABG Oxygen Saturation 99.2 % (95.0-99.0)
[2019-10-26 07:30] LABS: INR 1.11 (0.87-1.13)
[2019-10-26] MEDS ORDERED: AZITHROMYCIN 500 MG in SODIUM CHLORIDE 0.9% 250ML 250 ML IV ONE (07:30)
[2019-10-26] MEDS ORDERED: ALBUTEROL 2.5 MG/3 ML NEBU IH PRN (08:06)
[2019-10-26] MEDS ORDERED: ALBUTEROL 8.5 GM INHALATION IH PRN (08:06)
[2019-10-26] MEDS ORDERED: METOCLOPRAMIDE 10 MG/2 ML INJ IV PRN (08:07)
[2019-10-26] MEDS ORDERED: ONDANSETRON 4 MG/2 ML INJ IV PRN (08:07)
[2019-10-26] MEDS ORDERED: DEXTROSE 50% IN WATER (25GM) 50 ML SYRINGE IV PRN (08:07)
[2019-10-26] MEDS ORDERED: MORPHINE 2 MG/1 ML INJ IV PRN (08:07)
[2019-10-26 08:21] LABS: BUN/Creatinine Ratio 8; Blood Urea Nitrogen 5 mg/dL (7-17); Calcium 8.3 mg/dL (8.4-10.2); Hemolysis Index 22
--- NOTE | 2019-10-26 08:36 | XRay Report ---
CHEST 1 VIEW 10/26/2019 7:29 AM INDICATION / CLINICAL INFORMATION: Dyspnea. COMPARISON: Chest x-ray on 01/24/2019. FINDINGS: SUPPORT DEVICES: None. HEART / MEDIASTINUM: Stable mild cardiomegaly. LUNGS / PLEURA: No significant pulmonary or pleural abnormality. No pneumothorax. ADDITIONAL FINDINGS: No significant additional findings. IMPRESSION: 1. No acute findings. Stable mild cardiomegaly. Signer Name: Amilcar Wilson MD Signed: 10/26/2019 8:31 AM Workstation Name: [id number]
[2019-10-26] MEDS ORDERED: CYCLOBENZAPRINE 10 MG TAB PO PRN (10:00)
[2019-10-26] MEDS ORDERED: BUMETANIDE 1 MG TAB PO SCH (10:00)
[2019-10-26] MEDS ORDERED: BUMETANIDE 2 MG PO SCH (10:00)
[2019-10-26] MEDS ORDERED: NON-FORMULARY EACH (Budesonide/Formoterol Fumarate [Symbicort 160-4.5 Mcg Inhaler] 2 PUFF) IH SCH (10:00)
[2019-10-26] MEDS ORDERED: ASPIRIN 81 MG TAB CHEW ONE (11:10)
[2019-10-26] MEDS ORDERED: BUMETANIDE 1 MG/4 ML INJ IV ONE (11:10)
[2019-10-26] MEDS: BUMETANIDE 1 MG/4 ML INJ IV SCH (11:37)
[2019-10-26] MEDS: ASPIRIN 81 MG TAB CHEW PO SCH (11:37)
[2019-10-26] MEDS: METOPROLOL SUCCINATE XL 25 MG TAB PO SCH (11:37)
[2019-10-26] MEDS ORDERED: INSULIN REGULAR, HUMAN 100 UNITS/1 ML ONE (12:57)
[2019-10-26] MEDS: INSULIN LISPRO 100 UNIT/ML SUB-Q SCH ×3 (13:01→22:57)
--- NOTE | 2019-10-26 14:21 | History and Physical Report ---
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 She denies any chest pain nausea vomiting or diarrhea. She appears to be in acute asthma exacerbation and she states that this happens routinely. Patient was placed on BiPAP with noted improvement. She denies DVT and pulmonary embolism risk factors. She denies physical pain at this time. There is no complaint of headache, neck pain, chest pain, abdominal pain, urinary symptoms, focal extremity weakness and or numbness. Past History Past Medical History: diabetes, heart failure, hypertension, hyperlipidemia, other (Asthma) Past Surgical History: No surgical history Social history: no significant social history Medications and Allergies Allergies Allergy/AdvReac Type Severity Reaction Status Date / Time No Known Allergies Allergy Verified 08/23/18 08:13 Home Medications Medication Instructions Recorded Confirmed Last Taken Type AtorvaSTATin [Lipitor] 20 mg PO QHS 10/26/19 10/26/19 Unknown History Bumetanide 2 mg PO QDAY 10/26/19 10/26/19 Unknown History Loratadine [Claritin] 10 mg PO QDAY 10/26/19 10/26/19 Unknown History Metoprolol Xl [Metoprolol 50 mg PO QDAY 10/26/19 10/26/19 Unknown History SUCCINATE ER TAB] Sertraline [Zoloft] 50 mg PO QDAY 10/26/19 10/26/19 Unknown History glipiZIDE XL [Glucotrol Xl] 10 mg PO QAM 10/26/19 10/26/19 Unknown History Active Meds: Active Medications Acetaminophen (Tylenol) 650 mg PO Q4H PRN PRN Reason: Pain MILD(1-3)/Fever >100.5/[facility]ANNAH Albuterol (Proventil) 2.5 mg IH Q6H PRN PRN Reason: Wheezing Albuterol/Ipratropium (Duoneb *Not For Prn Use*) 1 ampul IH Q6HRT [facility] Arformoterol Tartrate (Brovana Nebu) 15 mcg IH Q12HRT [facility] Aspirin (Baby Aspirin) 81 mg PO QDAY [facility] Last Admin: 10/26/19 11:37 Dose: 81 mg Documented by: Atorvastatin Calcium (Lipitor) 20 mg PO QHS [facility] Budesonide (Pulmicort) 0.5 mg IH Q12HRT [facility] Bumetanide (Bumex) 1 mg IV DAILY [facility] Last Admin: 10/26/19 11:37 Dose: 1 mg Documented by: Cyclobenzaprine HCl (Flexeril) 10 mg PO BID PRN PRN Reason: Muscle Spasm Dextrose (D50w (25gm) Syringe) 50 ml IV Q30MIN PRN; Protocol PRN Reason: Hypoglycemia Glipizide (Glucotrol Xl) 10 mg PO QDDIAB [facility] Last Admin: 10/26/19 10:32 Dose: 10 mg Documented by: Insulin Human Lispro (Humalog) 0 unit SUB-Q ACHS [facility]; Protocol Last Admin: 10/26/19 13:01 Dose: 6 unit Documented by: Methylprednisolone Sodium Succinate (Solu-Medrol) 80 mg IV Q8HR [facility] Metoclopramide HCl (Reglan) 10 mg IV Q6H PRN PRN Reason: Nausea And Vomiting Metoprolol Succinate (Metoprolol Xl) 25 mg PO QDAY [facility] Last Admin: 10/26/19 11:37 Dose: 25 mg Documented by: Morphine Sulfate (Morphine) 2 mg IV Q4H PRN PRN Reason: Pain, Moderate (4-6) Ondansetron HCl (Zofran) 4 mg IV Q8H PRN PRN Reason: Nausea And Vomiting Oxycodone/Acetaminophen (Percocet 5/325) 1 tab PO Q6H PRN PRN Reason: Pain , Severe (7-10) Sodium Chloride (Sodium Chloride Flush Syringe 10 Ml) 10 ml IV BID [facility] Last Admin: 10/26/19 11:37 Dose: 10 ml Documented by: Sodium Chloride (Sodium Chloride Flush Syringe 10 Ml) 10 ml IV PRN PRN PRN Reason: LINE FLUSH Review of Systems All systems: negative Constitutional: fatigue Cardiovascular: shortness of breath, no chest pain, no orthopnea, no palpitations, no rapid/irregular heart beat Respiratory: cough, shortness of breath, dyspnea on exertion, no cough with sputum Exam - Physical Exam Narrative exam: VITAL SIGNS: Reviewed. GENERAL: The patient appears normally developed, acutely short of breath vital signs as documented. HEAD: No signs of head trauma. EYES: Pupils are equal. Extraocular motions intact. EARS: Hearing grossly intact. MOUTH: Oropharynx is normal. NECK: No adenopathy, no JVD. CHEST: Chest with bilateral expiratory wheezing breath sounds bilaterally. No wheezes, rales, or rhonchi. CARDIAC: Regular rate and rhythm. S1 and S2, without murmurs, gallops, or rubs. VASCULAR: Trace edema. Peripheral pulses normal and equal in all extremities. ABDOMEN: Soft, non tender and non distended. No rebound or guarding, and no masses palpated. Bowel Sounds normal. MUSCULOSKELETAL: Good range of motion of all major joints. Extremities without clubbing, cyanosis. Trace bilateral edema. NEUROLOGIC EXAM: Alert and oriented x 3 No focal sensory or strength deficits. Speech normal. Follows commands. Completes full sentences PSYCHIATRIC: Mood anxious SKIN: detial exam as documented in skin assessment - Constitutional Vitals: Temp Pulse Resp BP Pulse Ox 98.6 F 119 H 21 160/91 94 10/26/19 11:36 10/26/19 12:00 10/26/19 12:00 10/26/19 12:00 10/26/19 13:03 Results - Labs CBC & Chem 7: 10/26/19 06:49 10/26/19 06:49 Labs: Laboratory Last Values WBC 6.7 K/mm3 (4.5-11.0) 10/26/19 06:49 RBC 4.90 M/mm3 (3.65-5.03) 10/26/19 06:49 Hgb 17.3 gm/dl (10.1-14.3) H 10/26/19 06:49 Hct 51.0 % (30.3-42.9) H 10/26/19 06:49 MCV 104 fl (79-97) H 10/26/19 06:49 MCH 35 pg (28-32) H 10/26/19 06:49 MCHC 34 % (30-34) 10/26/19 06:49 RDW 17.4 % (13.2-15.2) H 10/26/19 06:49 Plt Count 150 K/mm3 (140-440) 10/26/19 06:49 Lymph % (Auto) 30.9 % (13.4-35.0) 10/26/19 06:49 [place] % (Auto) 8.4 % (0.0-7.3) H 10/26/19 06:49 Eos % (Auto) 0.1 % (0.0-4.3) 10/26/19 06:49 Baso % (Auto) 0.4 % (0.0-1.8) 10/26/19 06:49 Lymph # 2.1 K/mm3 (1.2-5.4) 10/26/19 06:49 [place] # 0.6 K/mm3 (0.0-0.8) 10/26/19 06:49 Eos # 0.0 K/mm3 (0.0-0.4) 10/26/19 06:49 Baso # 0.0 K/mm3 (0.0-0.1) 10/26/19 06:49 Seg Neutrophils % 60.2 % (40.0-70.0) 10/26/19 06:49 Seg Neutrophils # 4.1 K/mm3 (1.8-7.7) 10/26/19 06:49 PT 14.4 Sec. (12.2-14.9) 10/26/19 06:49 INR 1.11 (0.87-1.13) 10/26/19 06:49 D-Dimer 334.49 ng/mlDDU (0-234) H 10/26/19 06:49 ABG pH 7.375 pH Units (7.350-7.450) 10/26/19 07:00 ABG pCO2 52.3 mm Hg 10/26/19 07:00 ABG pO2 195.8 mm Hg (80.0-90.0) H 10/26/19 07:00 ABG HCO3 29.9 mmol/L (20.0-26.0) H 10/26/19 07:00 ABG O2 Saturation 99.2 % (95.0-99.0) H 10/26/19 07:00 ABG O2 Content 21.4 (0.0-44) 10/26/19 07:00 ABG Base Excess 3.4 mmol/L (-2.0-3.0) H 10/26/19 07:00 ABG Hemoglobin 17.1 gm/dl (12.0-16.0) H 10/26/19 07:00 ABG Carboxyhemoglobin 1.7 % (0.0-5.0) 10/26/19 07:00 ABG Methemoglobin 0.6 % (0.0-1.5) 10/26/19 07:00 Oxyhemoglobin 96.9 % (95.0-99.0) 10/26/19 07:00 FiO2 32 % 10/26/19 07:00 Sodium 137 mmol/L (137-145) 10/26/19 06:49 Potassium 3.6 mmol/L (3.6-5.0) 10/26/19 06:49 Chloride 95.8 mmol/L (98-107) L 10/26/19 06:49 Carbon Dioxide 26 mmol/L (22-30) 10/26/19 06:49 Anion Gap 19 mmol/L 10/26/19 06:49 BUN 5 mg/dL (7-17) L 10/26/19 06:49 Creatinine 0.6 mg/dL (0.7-1.2) L 10/26/19 06:49 Estimated GFR > 60 ml/min 10/26/19 06:49 BUN/Creatinine Ratio 8 % 10/26/19 06:49 Glucose 180 mg/dL (65-100) H 10/26/19 06:49 POC Glucose 288 (70-105) H 10/26/19 13:05 Lactic Acid 2.00 mmol/L (0.7-2.0) 10/26/19 06:49 Calcium 8.3 mg/dL (8.4-10.2) L 10/26/19 06:49 Magnesium 1.40 mg/dL (1.7-2.3) L 10/26/19 06:49 Magnesium 1.40 mg/dL (1.7-2.3) L 10/26/19 06:49 Ferritin 182.5 ng/mL (13.0-400.0) 10/26/19 06:49 Lactate Dehydrogenase 284 units/L (91-180) H 10/26/19 06:49 Total Creatine Kinase 65 units/L (30-135) 10/26/19 06:49 C-Reactive Protein 4.00 mg/dL (0.00-1.30) H 10/26/19 06:49 Procalcitonin < 0.05 ng/mL (<0.15) 10/26/19 06:49 Coronavirus (PCR) Positive (Negative) A 10/26/19 08:43 Microbiology: Microbiology 10/26/19 Unknown Peripheral/Venous Blood Culture - Preliminary Culture in Progress 10/26/19 Unknown Peripheral/Venous Blood Culture - Preliminary Culture in Progress Gaytan/IV: IV Catheter Type [Right Hand] INT / Saline Lock Assessment and Plan Assessment and plan: Patient is a 54-year-old female with past medical history of congestive heart failure, asthma, obstructive sleep apnea, diabetes mellitus hypertension 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 She denies any chest pain nausea vomiting or diarrhea. She appears to be in acute asthma exacerbation and she states that this happens routinely. Patient was placed on BiPAP with noted improvement. She denies DVT and pulmonary embolism risk factors. She denies physical pain at this time. There is no complaint of headache, neck pain, chest pain, abdominal pain, urinary symptoms, focal extremity weakness and or numbness. -Acute respiratory failure with hypoxia due to acute asthma exacerbation: Currently on BiPAP will try to wean to nasal cannula. We will also rule out COVID-19 -Acute asthma exacerbation: treat with steroids, nebs. Pulmonary consult -COVID-19 viral pneumonia: ID consult -Sepsis: Likely secondary to underlying pneumonia unfortunately cannot use sepsis protocol with fluids due to underlying congestive heart failure. And also risk of ARDS. -SORAYA (obstructive sleep apnea) CPAP at nighttime -Type 2 diabetes mellitus: Sliding scale coverage, will place on long-acting insulin at night considering steroids. -Acute on chronic congestive heart failure diastolic: We will hold p.o. Bumex and give patient IV Bumex daily -HTN (hypertension): Continue antihypertensives in the form of metoprolol 25 mg once a day -Hyperlipidemia: statin -Hyperkalemia, Secondary to hemolysis: We will repeat the potassium level and treat accordingly -Hypocalcemia, Patient initiated on Caltrate D twice a day -Morbid obesity, bmi 48.7 -DVT prophylaxis: Patient on Lovenox and GI prophylaxis Advance Directives: Yes Plan of care discussed with patient/family: Yes
--- NOTE | 2019-10-26 14:35 | Consultation ---
History of Present Illness Consult date: 10/26/19 Requesting physician: PATRIC GUTIERREZ Reason for consult: hypoxemia History of present illness: 54 y/o, obese female, known to me and our practice presents to the ED with shortness of breath for the past week. Patient is an employee here. To her knowledge, no direct contacts with COVID patients without proper PPE. In the ED was in significant distress and required bipap therapy. After about 2 hours this was weaned off and no patient has been down graded from IMCU to COVID floor. PCR sent and has come back positive for coronavirus. Currently with good sats on 2 liters NC and in no distress. Febrile to 101.1. On admission and now down to 98. Inflammatory markers sent. All elevated. Calcium and Magnesium both low as well as potassium. Past History Past Medical History: diabetes, hypertension, hyperlipidemia, other (asthma vs reactive airways disease, and SORAYA, obesity) Medications and Allergies Allergies Allergy/AdvReac Type Severity Reaction Status Date / Time No Known Allergies Allergy Verified 08/23/18 08:13 Home Medications Medication Instructions Recorded Confirmed Last Taken Type AtorvaSTATin [Lipitor] 20 mg PO QHS 10/26/19 10/26/19 Unknown History Bumetanide 2 mg PO QDAY 10/26/19 10/26/19 Unknown History Loratadine [Claritin] 10 mg PO QDAY 10/26/19 10/26/19 Unknown History Metoprolol Xl [Metoprolol 50 mg PO QDAY 10/26/19 10/26/19 Unknown History SUCCINATE ER TAB] Sertraline [Zoloft] 50 mg PO QDAY 10/26/19 10/26/19 Unknown History glipiZIDE XL [Glucotrol Xl] 10 mg PO QAM 10/26/19 10/26/19 Unknown History Active Meds: Active Medications Acetaminophen (Tylenol) 650 mg PO Q4H PRN PRN Reason: Pain MILD(1-3)/Fever >100.5/[facility] Albuterol (Proventil) 2.5 mg IH Q6H PRN PRN Reason: Wheezing Albuterol/Ipratropium (Duoneb *Not For Prn Use*) 1 ampul IH Q6HRT [facility] Arformoterol Tartrate (Brovana Nebu) 15 mcg IH Q12HRT [facility] Aspirin (Baby Aspirin) 81 mg PO QDAY [facility] Last Admin: 10/26/19 11:37 Dose: 81 mg Documented by: Atorvastatin Calcium (Lipitor) 20 mg PO QHS [facility] Budesonide (Pulmicort) 0.5 mg IH Q12HRT [facility] Bumetanide (Bumex) 1 mg IV DAILY [facility] Last Admin: 10/26/19 11:37 Dose: 1 mg Documented by: Cyclobenzaprine HCl (Flexeril) 10 mg PO BID PRN PRN Reason: Muscle Spasm Dextrose (D50w (25gm) Syringe) 50 ml IV Q30MIN PRN; Protocol PRN Reason: Hypoglycemia Glipizide (Glucotrol Xl) 10 mg PO QDDIAB [facility] Last Admin: 10/26/19 10:32 Dose: 10 mg Documented by: Insulin Human Lispro (Humalog) 0 unit SUB-Q ACHS [facility]; Protocol Last Admin: 10/26/19 13:01 Dose: 6 unit Documented by: Methylprednisolone Sodium Succinate (Solu-Medrol) 80 mg IV Q8HR [facility] Metoclopramide HCl (Reglan) 10 mg IV Q6H PRN PRN Reason: Nausea And Vomiting Metoprolol Succinate (Metoprolol Xl) 25 mg PO QDAY [facility] Last Admin: 10/26/19 11:37 Dose: 25 mg Documented by: Morphine Sulfate (Morphine) 2 mg IV Q4H PRN PRN Reason: Pain, Moderate (4-6) Ondansetron HCl (Zofran) 4 mg IV Q8H PRN PRN Reason: Nausea And Vomiting Oxycodone/Acetaminophen (Percocet 5/325) 1 tab PO Q6H PRN PRN Reason: Pain , Severe (7-10) Sodium Chloride (Sodium Chloride Flush Syringe 10 Ml) 10 ml IV BID [facility] Last Admin: 10/26/19 11:37 Dose: 10 ml Documented by: Sodium Chloride (Sodium Chloride Flush Syringe 10 Ml) 10 ml IV PRN PRN PRN Reason: LINE FLUSH Physical Examination Vital signs: Vital Signs Temp Pulse Resp BP Pulse Ox 101.1 F H 120 H 40 H 150/95 84 10/26/19 07:11 10/26/19 07:11 10/26/19 07:11 10/26/19 07:11 10/26/19 07:11 General appearance: other (Patient not examined directly to preserve PPE) Results - Laboratory Findings CBC and BMP: 05/01/20 06:49 10/26/19 06:49 ABG ABG pH 7.375 pH Units (7.350-7.450) 10/26/19 07:00 ABG pCO2 52.3 mm Hg 10/26/19 07:00 ABG pO2 195.8 mm Hg (80.0-90.0) H 10/26/19 07:00 ABG O2 Saturation 99.2 % (95.0-99.0) H 10/26/19 07:00 PT/INR, D-dimer PT 14.4 Sec. (12.2-14.9) 10/26/19 06:49 INR 1.11 (0.87-1.13) 10/26/19 06:49 D-Dimer 334.49 ng/mlDDU (0-234) H 10/26/19 06:49 Abnormal lab findings: Abnormal Labs 10/26/19 10/26/19 10/26/19 06:49 06:49 06:49 Hgb 17.3 H Hct 51.0 H MCV 104 H MCH 35 H RDW 17.4 H Yell % (Auto) 8.4 H D-Dimer 334.49 H ABG pO2 ABG HCO3 ABG O2 Saturation ABG Base Excess ABG Hemoglobin Chloride 95.8 L BUN 5 L Creatinine 0.6 L Glucose 180 H POC Glucose Calcium 8.3 L Magnesium 1.40 L Lactate Dehydrogenase 284 H C-Reactive Protein 4.00 H Coronavirus (PCR) 10/26/19 10/26/19 10/26/19 06:49 07:00 08:43 Hgb Hct MCV MCH RDW Yell % (Auto) D-Dimer ABG pO2 195.8 H ABG HCO3 29.9 H ABG O2 Saturation 99.2 H ABG Base Excess 3.4 H ABG Hemoglobin 17.1 H Chloride BUN Creatinine Glucose POC Glucose Calcium Magnesium 1.40 L Lactate Dehydrogenase C-Reactive Protein Coronavirus (PCR) Positive A 10/26/19 13:05 Hgb Hct MCV MCH RDW Yell % (Auto) D-Dimer ABG pO2 ABG HCO3 ABG O2 Saturation ABG Base Excess ABG Hemoglobin Chloride BUN Creatinine Glucose POC Glucose 288 H Calcium Magnesium Lactate Dehydrogenase C-Reactive Protein Coronavirus (PCR) - Diagnostic Findings Chest x-ray: image reviewed (no evidence of acute intraparenchymal lung disease) Assessment and Plan 54 y/o female admitted with dyspnea for the past week, and fever, found to be warren virus positive 1. ID has been consulted, markers sent. Will defer to them in regards to initial therapy at this time if any. Weaned to FiO2 of 28 %. Will encourage patient to prone several times during the day and sleep on her stomach at night if possible. Wean FiO2 for sats >88%. Patient has had to go home on oxygen in the past. Her last hospital stay required this. Agree with continuing steroid therapy as patient does have underlying obstructive lung disease. Will start to wean in about 48-72 hours. Will need steroid taper, at least over 2 weeks time. If Im not mistaken, patient suffers from diastolic dysfunction and required diuresis at last hospital stent. Given her most recent diagnosis, we know individuals do better the less volume they are retaining or taking in. Continue with diuretic therapy and hold on all fluids unless patient is not tolerating any PO. Overall prognosis is guarded. Will continue to follow.
--- NOTE | 2019-10-26 14:55 | Consultation ---
History of Present Illness - Reason for Consult Consult date: 10/26/19 - History of Present Illness 54-year-old female past medical history CHF, asthma, obstructive sleep apnea, diabetes, hypertension, hyperlipidemia admitted to the hospital with COVID-19. 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 She otherwise denies any new symptoms. It was considered that she was in acute asthma exacerbation, and she was admitted as such. She was placed on BiPAP in the emergency room, however she is now on 2 L nasal cannula. Febrile to 101.1 on admission with a normal white count of 7. She is not currently receiving antibiotics, procalcitonin is normal. Blood cultures are currently pending. COVID-19 testing is positive. Imaging personally reviewed: Chest x-ray: No acute findings. Review of Systems: Bold if positive, otherwise negative General: fevers, chills, rigors HEENT: visual disturbance, diplopia, eye pain Respiratory: cough, sputum, hemoptysis, shortness of breath Cardiovascular: chest pain, syncope Gastrointestinal: nausea, vomiting, diarrhea, abdominal pain Genitourinary: dysuria, hematuria, flank pain Musculoskeletal: neck pain, back pain, joint pain, edema Neurologic: headaches, seizures Hematologic: easy bruising or bleeding Endocrine: night sweats, acute weight loss Skin: rash, jaundice, redness Psychiatric: suicidal, homicidal ideation Past History Past Medical History: diabetes, hypertension, hyperlipidemia, other (asthma vs reactive airways disease, and SORAYA, obesity) Past Surgical History: No surgical history Social history: no significant social history Medications and Allergies Allergies Allergy/AdvReac Type Severity Reaction Status Date / Time No Known Allergies Allergy Verified 08/23/18 08:13 Home Medications Medication Instructions Recorded Confirmed Last Taken Type AtorvaSTATin [Lipitor] 20 mg PO QHS 10/26/19 10/26/19 Unknown History Bumetanide 2 mg PO QDAY 10/26/19 10/26/19 Unknown History Loratadine [Claritin] 10 mg PO QDAY 10/26/19 10/26/19 Unknown History Metoprolol Xl [Metoprolol 50 mg PO QDAY 10/26/19 10/26/19 Unknown History SUCCINATE ER TAB] Sertraline [Zoloft] 50 mg PO QDAY 10/26/19 10/26/19 Unknown History glipiZIDE XL [Glucotrol Xl] 10 mg PO QAM 10/26/19 10/26/19 Unknown History Active Meds: Active Medications Acetaminophen (Tylenol) 650 mg PO Q4H PRN PRN Reason: Pain MILD(1-3)/Fever >100.5/HANNAH Albuterol (Proventil) 2.5 mg IH Q6H PRN PRN Reason: Wheezing Albuterol/Ipratropium (Duoneb *Not For Prn Use*) 1 ampul IH Q6HRT [facility] Arformoterol Tartrate (Brovana Nebu) 15 mcg IH Q12HRT [facility] Aspirin (Baby Aspirin) 81 mg PO QDAY [facility] Last Admin: 10/26/19 11:37 Dose: 81 mg Documented by: Atorvastatin Calcium (Lipitor) 20 mg PO QHS [facility] Budesonide (Pulmicort) 0.5 mg IH Q12HRT [facility] Bumetanide (Bumex) 1 mg IV DAILY [facility] Last Admin: 10/26/19 11:37 Dose: 1 mg Documented by: Cyclobenzaprine HCl (Flexeril) 10 mg PO BID PRN PRN Reason: Muscle Spasm Dextrose (D50w (25gm) Syringe) 50 ml IV Q30MIN PRN; Protocol PRN Reason: Hypoglycemia Glipizide (Glucotrol Xl) 10 mg PO QDDIAB [facility] Last Admin: 10/26/19 10:32 Dose: 10 mg Documented by: Insulin Human Lispro (Humalog) 0 unit SUB-Q ACHS [facility]; Protocol Last Admin: 10/26/19 13:01 Dose: 6 unit Documented by: Methylprednisolone Sodium Succinate (Solu-Medrol) 80 mg IV Q8HR [facility] Metoclopramide HCl (Reglan) 10 mg IV Q6H PRN PRN Reason: Nausea And Vomiting Metoprolol Succinate (Metoprolol Xl) 25 mg PO QDAY [facility] Last Admin: 10/26/19 11:37 Dose: 25 mg Documented by: Morphine Sulfate (Morphine) 2 mg IV Q4H PRN PRN Reason: Pain, Moderate (4-6) Ondansetron HCl (Zofran) 4 mg IV Q8H PRN PRN Reason: Nausea And Vomiting Oxycodone/Acetaminophen (Percocet 5/325) 1 tab PO Q6H PRN PRN Reason: Pain , Severe (7-10) Sodium Chloride (Sodium Chloride Flush Syringe 10 Ml) 10 ml IV BID [facility] Last Admin: 10/26/19 11:37 Dose: 10 ml Documented by: Sodium Chloride (Sodium Chloride Flush Syringe 10 Ml) 10 ml IV PRN PRN PRN Reason: LINE FLUSH Physical Examination - Physical Exam Narrative exam: Physical exam deferred due to PPE conservation strategy. - Constitutional Vitals: Vital Signs Temp Pulse Resp BP Pulse Ox 98.6 F 119 H 21 160/91 94 10/26/19 11:36 10/26/19 12:00 10/26/19 12:00 10/26/19 12:00 10/26/19 13:03 Temperature -Last 24 Hours Temperature 98.6 F Temperature 101.1 F Results - Labs CBC & Chem 7: 10/26/19 06:49 10/26/19 06:49 Labs: Abnormal lab results 10/26/19 10/26/19 10/26/19 Range/Units 06:49 06:49 06:49 Hgb 17.3 H (10.1-14.3) gm/dl Hct 51.0 H (30.3-42.9) % MCV 104 H (79-97) fl MCH 35 H (28-32) pg RDW 17.4 H (13.2-15.2) % [place] % (Auto) 8.4 H (0.0-7.3) % D-Dimer 334.49 H (0-234) ng/mlDDU ABG pO2 (80.0-90.0) mm Hg ABG HCO3 (20.0-26.0) mmol/L ABG O2 Saturation (95.0-99.0) % ABG Base Excess (-2.0-3.0) mmol/L ABG Hemoglobin (12.0-16.0) gm/dl Chloride 95.8 L (98-107) mmol/L BUN 5 L (7-17) mg/dL Creatinine 0.6 L (0.7-1.2) mg/dL Glucose 180 H (65-100) mg/dL POC Glucose (70-105) Calcium 8.3 L (8.4-10.2) mg/dL Magnesium 1.40 L (1.7-2.3) mg/dL Lactate Dehydrogenase 284 H (91-180) units/L C-Reactive Protein 4.00 H (0.00-1.30) mg/dL Coronavirus (PCR) (Negative) 10/26/19 10/26/19 10/26/19 Range/Units 06:49 07:00 08:43 Hgb (10.1-14.3) gm/dl Hct (30.3-42.9) % MCV (79-97) fl MCH (28-32) pg RDW (13.2-15.2) % [place] % (Auto) (0.0-7.3) % D-Dimer (0-234) ng/mlDDU ABG pO2 195.8 H (80.0-90.0) mm Hg ABG HCO3 29.9 H (20.0-26.0) mmol/L ABG O2 Saturation 99.2 H (95.0-99.0) % ABG Base Excess 3.4 H (-2.0-3.0) mmol/L ABG Hemoglobin 17.1 H (12.0-16.0) gm/dl Chloride (98-107) mmol/L BUN (7-17) mg/dL Creatinine (0.7-1.2) mg/dL Glucose (65-100) mg/dL POC Glucose (70-105) Calcium (8.4-10.2) mg/dL Magnesium 1.40 L (1.7-2.3) mg/dL Lactate Dehydrogenase (91-180) units/L C-Reactive Protein (0.00-1.30) mg/dL Coronavirus (PCR) Positive A (Negative) 10/26/19 Range/Units 13:05 Hgb (10.1-14.3) gm/dl Hct (30.3-42.9) % MCV (79-97) fl MCH (28-32) pg RDW (13.2-15.2) % [place] % (Auto) (0.0-7.3) % D-Dimer (0-234) ng/mlDDU ABG pO2 (80.0-90.0) mm Hg ABG HCO3 (20.0-26.0) mmol/L ABG O2 Saturation (95.0-99.0) % ABG Base Excess (-2.0-3.0) mmol/L ABG Hemoglobin (12.0-16.0) gm/dl Chloride (98-107) mmol/L BUN (7-17) mg/dL Creatinine (0.7-1.2) mg/dL Glucose (65-100) mg/dL POC Glucose 288 H (70-105) Calcium (8.4-10.2) mg/dL Magnesium (1.7-2.3) mg/dL Lactate Dehydrogenase (91-180) units/L C-Reactive Protein (0.00-1.30) mg/dL Coronavirus (PCR) (Negative) Assessment and Plan Cultures: Blood culture 10/26/2019 pending A/P: 54-year-old female past medical history CHF, asthma, obstructive sleep apnea, diabetes, hypertension, hyperlipidemia admitted with COVID-19 #Acute sepsis: Present with fevers tachycardia. Secondary to COVID-19 #COVID-19: On 2 L nasal cannula right now, with a normal ferritin and mildly e levated inflammatory markers for now. As such not currently a candidate for Actemra, however will continue to follow and give as appropriate. No role for hydroxychloroquine given lack of evidence of efficacy #Asthma: High risk for decompensation due to COVID-19. #Diabetes: Tight glycemic control for best outcomes. Recs: -Follow COVID-19 labs every 48 hours: LDH, CRP, ferritin, d-dimer -No role for therapy presently, but will follow with amatory markers and oxygen status to determine if she needs antibiotics. -No antibiotics for now, normal procalcitonin. Thank you for the consult, we will continue to follow. Tomás Lee MD [facility] M: [phone] O: [phone] F: [phone]
[2019-10-26] MEDS: IPRATROPIUM/ALBUTEROL SULFATE 3 ML AMPUL.NEB IH SCH (15:45)
[2019-10-26] MEDS: methylPREDNISolone Sod Succinate 125 MG/2 ML INJ IV SCH ×2 (16:22→22:54)
[2019-10-26] MEDS: ARFORMOTEROL 15 MCG/2 ML NEBU IH SCH (20:14)
[2019-10-26] MEDS: BUDESONIDE 0.5 MG/2 ML NEBU IH SCH (20:14)
[2019-10-26] MEDS ORDERED: INSULIN GLARGINE 100 UNITS/ML SUB-Q SCH (22:00)
[2019-10-26] MEDS: ACETAMINOPHEN 325 MG TAB PO PRN (22:53)
[2019-10-26] MEDS: guaiFENesin 200 MG TAB PO PRN (22:55)
[2019-10-27] MEDS: IPRATROPIUM/ALBUTEROL SULFATE 3 ML AMPUL.NEB IH SCH ×5 (04:03→22:09)
[2019-10-27] MEDS: methylPREDNISolone Sod Succinate 125 MG/2 ML INJ IV SCH ×3 (05:20→22:41)
[2019-10-27] MEDS: INSULIN LISPRO 100 UNIT/ML SUB-Q SCH ×4 (08:24→22:40)
--- NOTE | 2019-10-27 08:45 | Progress Note ---
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 She denies any chest pain nausea vomiting or diarrhea. She appears to be in acute asthma exacerbation and she states that this happens routinely. Patient was placed on BiPAP with noted improvement. She denies DVT and pulmonary embolism risk factors. She denies physical pain at this time. There is no complaint of headache, neck pain, chest pain, abdominal pain, urinary symptoms, focal extremity weakness and or numbness. -Acute respiratory failure with hypoxia due to acute asthma exacerbation AND COVID19: Currently on BiPAP will try to wean to nasal cannula although of note patient is on O2 at home.. -Acute asthma exacerbation: treat with steroids, nebs. Pulmonary consult, start steroids wean probably tomorrow if patient improving -COVID-19 viral pneumonia: ID consult, Encourage, prone positioning and no IV fluiods if possible -Sepsis: Likely secondary to underlying pneumonia unfortunately cannot use sepsis protocol with fluids due to underlying congestive heart failure. And also risk of ARDS. - Hypomagenesmia: Replace -SORAYA (obstructive sleep apnea) CPAP at nighttime -Type 2 diabetes mellitus: Sliding scale coverage, will place on long-acting insulin at night considering steroids, Will adjust lantus to 30qhs as glucose still elevated -Acute on chronic congestive heart failure diastolic: We will hold p.o. Bumex and give patient IV Bumex daily -HTN (hypertension): Continue antihypertensives in the form of metoprolol 25 mg once a day -Hyperlipidemia: statin -Hypocalcemia, Patient initiated on Caltrate D twice a day -Morbid obesity, bmi 47.3 -DVT prophylaxis: Patient on Lovenox and GI prophylaxis History Interval history: Patient seen and examined resting comfortably no new complaints encouraged her to be improved positioning but she says that is difficult for her to do due to her weight and anxiety. Encourage to lie on her side. Hospitalist Physical - Physical exam Narrative exam: VITAL SIGNS: Reviewed. GENERAL: The patient appears normally developed, a prior noted shortness of breath is improved vital signs as documented. HEAD: No signs of head trauma. EYES: Pupils are equal. Extraocular motions intact. EARS: Hearing grossly intact. MOUTH: Oropharynx is normal. NECK: No adenopathy, no JVD. CHEST: Chest with decreased breath sounds bilaterally. No wheezes, rales, or rhonchi. CARDIAC: Regular rate and rhythm. S1 and S2, without murmurs, gallops, or rubs. VASCULAR: Trace edema. Peripheral pulses normal and equal in all extremities. ABDOMEN: Soft, non tender and non distended. No rebound or guarding, and no masses palpated. Bowel Sounds normal. MUSCULOSKELETAL: Good range of motion of all major joints. Extremities without clubbing, cyanosis. Trace bilateral edema. NEUROLOGIC EXAM: Alert and oriented x 3 No focal sensory or strength deficits. Speech normal. Follows commands. Completes full sentences PSYCHIATRIC: Mood calm SKIN: detial exam as documented in skin assessment - Constitutional Vitals: Temp Pulse Resp BP Pulse Ox 98.8 F 67 22 149/88 94 10/27/19 05:03 10/27/19 05:03 10/27/19 05:03 10/27/19 05:03 10/27/19 05:03 Results - Labs CBC & Chem 7: 10/27/19 08:56 10/27/19 08:56 Labs: Laboratory Last Values WBC 6.7 K/mm3 (4.5-11.0) 10/26/19 06:49 RBC 4.90 M/mm3 (3.65-5.03) 10/26/19 06:49 Hgb 17.3 gm/dl (10.1-14.3) H 10/26/19 06:49 Hct 51.0 % (30.3-42.9) H 10/26/19 06:49 MCV 104 fl (79-97) H 10/26/19 06:49 MCH 35 pg (28-32) H 10/26/19 06:49 MCHC 34 % (30-34) 10/26/19 06:49 RDW 17.4 % (13.2-15.2) H 10/26/19 06:49 Plt Count 150 K/mm3 (140-440) 10/26/19 06:49 Lymph % (Auto) 30.9 % (13.4-35.0) 10/26/19 06:49 [place] % (Auto) 8.4 % (0.0-7.3) H 10/26/19 06:49 Eos % (Auto) 0.1 % (0.0-4.3) 10/26/19 06:49 Baso % (Auto) 0.4 % (0.0-1.8) 10/26/19 06:49 Lymph # 2.1 K/mm3 (1.2-5.4) 10/26/19 06:49 [place] # 0.6 K/mm3 (0.0-0.8) 10/26/19 06:49 Eos # 0.0 K/mm3 (0.0-0.4) 10/26/19 06:49 Baso # 0.0 K/mm3 (0.0-0.1) 10/26/19 06:49 Seg Neutrophils % 60.2 % (40.0-70.0) 10/26/19 06:49 Seg Neutrophils # 4.1 K/mm3 (1.8-7.7) 10/26/19 06:49 PT 14.4 Sec. (12.2-14.9) 10/26/19 06:49 INR 1.11 (0.87-1.13) 10/26/19 06:49 D-Dimer 334.49 ng/mlDDU (0-234) H 10/26/19 06:49 ABG pH 7.375 pH Units (7.350-7.450) 10/26/19 07:00 ABG pCO2 52.3 mm Hg 10/26/19 07:00 ABG pO2 195.8 mm Hg (80.0-90.0) H 10/26/19 07:00 ABG HCO3 29.9 mmol/L (20.0-26.0) H 10/26/19 07:00 ABG O2 Saturation 99.2 % (95.0-99.0) H 10/26/19 07:00 ABG O2 Content 21.4 (0.0-44) 10/26/19 07:00 ABG Base Excess 3.4 mmol/L (-2.0-3.0) H 10/26/19 07:00 ABG Hemoglobin 17.1 gm/dl (12.0-16.0) H 10/26/19 07:00 ABG Carboxyhemoglobin 1.7 % (0.0-5.0) 10/26/19 07:00 ABG Methemoglobin 0.6 % (0.0-1.5) 10/26/19 07:00 Oxyhemoglobin 96.9 % (95.0-99.0) 10/26/19 07:00 FiO2 32 % 10/26/19 07:00 Sodium 137 mmol/L (137-145) 10/26/19 06:49 Potassium 3.6 mmol/L (3.6-5.0) 10/26/19 06:49 Chloride 95.8 mmol/L (98-107) L 10/26/19 06:49 Carbon Dioxide 26 mmol/L (22-30) 10/26/19 06:49 Anion Gap 19 mmol/L 10/26/19 06:49 BUN 5 mg/dL (7-17) L 10/26/19 06:49 Creatinine 0.6 mg/dL (0.7-1.2) L 10/26/19 06:49 Estimated GFR > 60 ml/min 10/26/19 06:49 BUN/Creatinine Ratio 8 % 10/26/19 06:49 Glucose 180 mg/dL (65-100) H 10/26/19 06:49 POC Glucose 318 (70-105) H 10/26/19 22:12 Lactic Acid 2.60 mmol/L (0.7-2.0) H* 10/26/19 16:15 Calcium 8.3 mg/dL (8.4-10.2) L 10/26/19 06:49 Magnesium 1.40 mg/dL (1.7-2.3) L 10/26/19 06:49 Magnesium 1.40 mg/dL (1.7-2.3) L 10/26/19 06:49 Ferritin 182.5 ng/mL (13.0-400.0) 10/26/19 06:49 Lactate Dehydrogenase 284 units/L (91-180) H 10/26/19 06:49 Total Creatine Kinase 65 units/L (30-135) 10/26/19 06:49 C-Reactive Protein 4.00 mg/dL (0.00-1.30) H 10/26/19 06:49 Procalcitonin < 0.05 ng/mL (<0.15) 10/26/19 06:49 Coronavirus (PCR) Positive (Negative) A 10/26/19 08:43 Microbiology: Microbiology 10/26/19 Unknown Peripheral/Venous Blood Culture - Preliminary Culture in Progress 10/26/19 Unknown Peripheral/Venous Blood Culture - Preliminary Culture in Progress Gaytan/IV: Voiding Method Toilet IV Catheter Type [Right Hand] INT / Saline Lock Active Medications - Current Medications Current Medications: Generic Name Dose Route Start Last Admin Trade Name Freq PRN Reason Stop Dose Admin Acetaminophen 650 mg 10/26/19 08:06 10/26/19 22:53 Tylenol PO 650 mg Q4H PRN Administration Pain MILD(1-3)/Fever >100.5/HANNAH Albuterol 2.5 mg 10/26/19 08:06 Proventil IH Q6H PRN Wheezing Albuterol/Ipratropium 1 ampul 10/26/19 14:00 10/27/19 04:04 Duoneb *Not For Prn Use* IH Not Given Q6HRT [facility]AS Arformoterol Tartrate 15 mcg 10/26/19 20:00 10/26/19 20:14 Brovana Nebu IH 15 mcg Q12HRT [facility] Administration Aspirin 81 mg 10/26/19 10:00 10/26/19 11:37 Baby Aspirin PO 81 mg QDAY THOMAS Administration Atorvastatin Calcium 20 mg 10/26/19 22:00 10/26/19 22:53 Lipitor PO 20 mg QHS THOMAS Administration Budesonide 0.5 mg 10/26/19 20:00 10/26/19 20:14 Pulmicort IH 0.5 mg Q12HRT [facility]OMAS Administration Bumetanide 1 mg 10/26/19 10:00 10/26/19 11:37 Bumex IV 1 mg DAILY [facility]OMAS Administration Cyclobenzaprine HCl 10 mg 10/26/19 10:00 Flexeril PO BID PRN Muscle Spasm Dextrose 50 ml 10/26/19 08:07 D50w (25gm) Syringe IV Q30MIN PRN Hypoglycemia Protocol Glipizide 10 mg 10/26/19 09:00 10/26/19 10:32 Glucotrol Xl PO 10 mg QDDIAB [facility]OMAS Administration Guaifenesin 200 mg 10/26/19 21:56 10/26/19 22:55 Robitussin PO 200 mg Q6H PRN Administration Cough Insulin Glargine 20 units 10/26/19 22:00 10/26/19 22:54 Lantus SUB-Q 20 units QHS [facility]OMAS Administration Insulin Human Lispro 0 unit 10/26/19 11:30 10/27/19 08:24 Humalog SUB-Q 4 unit ACHS [facility] Administration Protocol Methylprednisolone Sodium Succinate 80 mg 10/26/19 14:00 10/27/19 05:20 Solu-Medrol IV 80 mg Q8HR THOMAS Administration Metoclopramide HCl 10 mg 10/26/19 08:07 Reglan IV Q6H PRN Nausea And Vomiting Metoprolol Succinate 25 mg 10/26/19 10:00 10/26/19 11:37 Metoprolol Xl PO 25 mg QDAY THOMAS Administration Morphine Sulfate 2 mg 10/26/19 08:07 Morphine IV Q4H PRN Pain, Moderate (4-6) Ondansetron HCl 4 mg 10/26/19 08:07 Zofran IV Q8H PRN Nausea And Vomiting Oxycodone/Acetaminophen 1 tab 10/26/19 08:06 Percocet 5/325 PO Q6H PRN Pain , Severe (7-10) Sodium Chloride 10 ml 10/26/19 10:00 10/26/19 22:53 Sodium Chloride Flush Syringe 10 Ml IV 10 ml BID [facility]OMAS Administration Sodium Chloride 10 ml 10/26/19 08:07 Sodium Chloride Flush Syringe 10 Ml IV PRN PRN LINE FLUSH
[2019-10-27 09:20] LABS: BUN/Creatinine Ratio 16; Blood Urea Nitrogen 8 mg/dL (7-17); Calcium 8.4 mg/dL (8.4-10.2); Hemolysis Index 5
[2019-10-27 09:38] LABS: Hematocrit 53.3 % (30.3-42.9); Hemoglobin 17.7 gm/dl (10.1-14.3); Mean Corpuscular HGB Conc 33 % (30-34); Mean Corpuscular Volume 106 fl (79-97); Platelet Count 165 K/mm3 (140-440); Red Blood Count 5.01 M/mm3 (3.65-5.03); Red Cell Distribution Width 17.2 % (13.2-15.2)
[2019-10-27] MEDS: METOPROLOL SUCCINATE XL 25 MG TAB PO SCH (09:42)
[2019-10-27] MEDS: ASPIRIN 81 MG TAB CHEW PO SCH (09:42)
[2019-10-27] MEDS: CALCIUM CARB/VIT D3/MINERALS 600 MG/800 UNITS TAB PO SCH (09:42)
[2019-10-27] MEDS: ACETAMINOPHEN 325 MG TAB PO PRN (09:43)
[2019-10-27] MEDS: BUMETANIDE 1 MG/4 ML INJ IV SCH (09:44)
--- NOTE | 2019-10-27 12:42 | Progress Note ---
Assessment and Plan Assessment and Plan 54 y/o female admitted with dyspnea for the past week, and fever, found to be warren virus positive 1. ID has been consulted, markers sent. Will defer to them in regards to initial therapy at this time if any. Weaned to FiO2 of 28 %. Will encourage patient to prone several times during the day and sleep on her stomach at night if possible. Wean FiO2 for sats >88%. Patient has had to go home on oxygen in the past. Her last hospital stay required this. Agree with continuing steroid therapy as patient does have underlying obstructive lung disease. Will start to wean in about 48-72 hours. Will need steroid taper, at least over 2 weeks time. If Im not mistaken, patient suffers from diastolic dysfunction and required diuresis at last hospital stent. Given her most recent diagnosis, we know individuals do better the less volume they are retaining or taking in. Continue with diuretic therapy and hold on all fluids unless patient is not tolerating any PO. Cont. close monitoring and supportive care for Covid-19 infection. Overall prognosis is guarded. Will continue to follow. Subjective Date of service: 10/27/19 Interval history: Pt feeling better on NC O2. Afebrile, No sig SOB or cough. Used BIPAP for SORAYA last night. Objective Vital Signs - 12hr 10/27/19 10/27/19 10/27/19 05:03 08:47 09:25 Temperature 98.8 F Pulse Rate 67 Pulse Rate [ 67 Bilateral] Respiratory 22 22 Rate Respiratory 20 Rate [Bilateral ] Blood Pressure 149/88 O2 Sat by Pulse 94 94 Oximetry 10/27/19 10/27/19 10/27/19 09:42 09:43 10:18 Temperature Pulse Rate 67 Pulse Rate [ Bilateral] Respiratory 20 Rate Respiratory Rate [Bilateral ] Blood Pressure 149/88 O2 Sat by Pulse 92 Oximetry 10/27/19 11:38 Temperature 98.4 F Pulse Rate 100 H Pulse Rate [ Bilateral] Respiratory 24 Rate Respiratory Rate [Bilateral ] Blood Pressure 138/73 O2 Sat by Pulse 95 Oximetry Constitutional: other (Not examined closely) Effort: normal Gastrointestinal: other (Obese) Neurologic: normal mental status Psychiatric: mood appropriate CBC and BMP: 10/27/19 08:56 10/27/19 08:56 ABG, PT/INR, D-dimer: ABG ABG pH 7.375 pH Units (7.350-7.450) 10/26/19 07:00 ABG pCO2 52.3 mm Hg 10/26/19 07:00 ABG pO2 195.8 mm Hg (80.0-90.0) H 10/26/19 07:00 ABG O2 Saturation 99.2 % (95.0-99.0) H 10/26/19 07:00 PT/INR, D-dimer PT 14.4 Sec. (12.2-14.9) 10/26/19 06:49 INR 1.11 (0.87-1.13) 10/26/19 06:49 D-Dimer 334.49 ng/mlDDU (0-234) H 10/26/19 06:49 Abnormal lab findings: Abnormal Labs 10/26/19 10/26/19 10/26/19 06:49 06:49 06:49 WBC Hgb 17.3 H Hct 51.0 H MCV 104 H MCH 35 H RDW 17.4 H [place] % (Auto) 8.4 H D-Dimer 334.49 H ABG pO2 ABG HCO3 ABG O2 Saturation ABG Base Excess ABG Hemoglobin Chloride 95.8 L Carbon Dioxide BUN 5 L Creatinine 0.6 L Glucose 180 H POC Glucose Lactic Acid Calcium 8.3 L Magnesium 1.40 L Lactate Dehydrogenase 284 H C-Reactive Protein 4.00 H Coronavirus (PCR) 10/26/19 10/26/19 10/26/19 06:49 07:00 08:43 WBC Hgb Hct MCV MCH RDW [place] % (Auto) D-Dimer ABG pO2 195.8 H ABG HCO3 29.9 H ABG O2 Saturation 99.2 H ABG Base Excess 3.4 H ABG Hemoglobin 17.1 H Chloride Carbon Dioxide BUN Creatinine Glucose POC Glucose Lactic Acid Calcium Magnesium 1.40 L Lactate Dehydrogenase C-Reactive Protein Coronavirus (PCR) Positive A 10/26/19 10/26/19 10/26/19 13:05 16:15 17:20 WBC Hgb Hct MCV MCH RDW [place] % (Auto) D-Dimer ABG pO2 ABG HCO3 ABG O2 Saturation ABG Base Excess ABG Hemoglobin Chloride Carbon Dioxide BUN Creatinine Glucose POC Glucose 288 H 226 H Lactic Acid 2.60 H* Calcium Magnesium Lactate Dehydrogenase C-Reactive Protein Coronavirus (PCR) 10/26/19 10/27/19 10/27/19 22:12 08:21 08:56 WBC 3.8 L Hgb 17.7 H Hct 53.3 H MCV 106 H MCH 35 H RDW 17.2 H [place] % (Auto) D-Dimer ABG pO2 ABG HCO3 ABG O2 Saturation ABG Base Excess ABG Hemoglobin Chloride Carbon Dioxide BUN Creatinine Glucose POC Glucose 318 H 202 H Lactic Acid Calcium Magnesium Lactate Dehydrogenase C-Reactive Protein Coronavirus (PCR) 10/27/19 08:56 WBC Hgb Hct MCV MCH RDW [place] % (Auto) D-Dimer ABG pO2 ABG HCO3 ABG O2 Saturation ABG Base Excess ABG Hemoglobin Chloride 95.4 L Carbon Dioxide 32 H BUN Creatinine 0.5 L Glucose 284 H POC Glucose Lactic Acid Calcium Magnesium Lactate Dehydrogenase C-Reactive Protein Coronavirus (PCR)
[2019-10-27] MEDS: BUDESONIDE 0.5 MG/2 ML NEBU IH SCH ×2 (14:41→22:07)
[2019-10-27] MEDS: ARFORMOTEROL 15 MCG/2 ML NEBU IH SCH ×2 (15:25→22:06)
[2019-10-27] MEDS: INSULIN GLARGINE 100 UNITS/ML SUB-Q SCH (22:41)
[2019-10-27] MEDS: oxyCODONE /ACETAMINOPHEN 5-325MG TAB PO PRN (22:51)
[2019-10-28] MEDS: IPRATROPIUM/ALBUTEROL SULFATE 3 ML AMPUL.NEB IH SCH ×4 (01:57→21:16)
[2019-10-28 05:07] LABS: BUN/Creatinine Ratio 24; Blood Urea Nitrogen 12 mg/dL (7-17); Calcium 8.8 mg/dL (8.4-10.2); Hemolysis Index 52
[2019-10-28] MEDS: methylPREDNISolone Sod Succinate 125 MG/2 ML INJ IV SCH (05:20)
[2019-10-28] MEDS ORDERED: methylPREDNISolone Sod Succinate 125 MG/2 ML INJ IV SCH (08:02)
--- NOTE | 2019-10-28 08:16 | Progress Note ---
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 She denies any chest pain nausea vomiting or diarrhea. She appears to be in acute asthma exacerbation and she states that this happens routinely. Patient was placed on BiPAP with noted improvement. She denies DVT and pulmonary embolism risk factors. She denies physical pain at this time. There is no complaint of headache, neck pain, chest pain, abdominal pain, urinary symptoms, focal extremity weakness and or numbness. * Encourage ambulation in the room. She reports remarkable improvement today. * Taper steroids to 40mg IV q8hr * Anticipate discharge in am on oxygen nasal cannula -Acute respiratory failure with hypoxia due to acute asthma exacerbation AND COVID19: Currently on BiPAP will try to wean to nasal cannula although of note patient is on O2 at home.. -Acute asthma exacerbation: treat with steroids, nebs. Pulmonary consult, start steroids wean probably tomorrow if patient improving -COVID-19 viral pneumonia: ID consult, Encourage, prone positioning and no IV fluiods if possible -Sepsis: Likely secondary to underlying pneumonia unfortunately cannot use seps is protocol with fluids due to underlying congestive heart failure. And also risk of ARDS. - Hypomagenesmia: Replace -SORAYA (obstructive sleep apnea) CPAP at nighttime -Type 2 diabetes mellitus: Sliding scale coverage, will place on long-acting insulin at night considering steroids, adjusted lantus to 30qhs as glucose still elevated -Acute on chronic congestive heart failure diastolic: We will hold p.o. Bumex and give patient IV Bumex daily -HTN (hypertension): Continue antihypertensives in the form of metoprolol 25 mg once a day -Hyperlipidemia: statin -Hypocalcemia, Patient initiated on Caltrate D twice a day -Morbid obesity, bmi 47.3 -DVT prophylaxis: Patient on Lovenox and GI prophylaxis History Interval history: Patient seen and examined resting comfortably no new complaints encouraged her to be improved positioning but she says that is difficult for her to do due to her weight and anxiety. Still encouraged prone position Hospitalist Physical - Physical exam Narrative exam: VITAL SIGNS: Reviewed. GENERAL: The patient appears normally developed, a prior noted shortness of breath is improved vital signs as documented. HEAD: No signs of head trauma. EYES: Pupils are equal. Extraocular motions intact. EARS: Hearing grossly intact. MOUTH: Oropharynx is normal. NECK: No adenopathy, no JVD. CHEST: Chest with decreased breath sounds bilaterally. No wheezes, rales, or rhonchi. CARDIAC: Regular rate and rhythm. S1 and S2, without murmurs, gallops, or rubs. VASCULAR: Trace edema. Peripheral pulses normal and equal in all extremities. ABDOMEN: Soft, non tender and non distended. No rebound or guarding, and no masses palpated. Bowel Sounds normal. MUSCULOSKELETAL: Good range of motion of all major joints. Extremities without clubbing, cyanosis. Trace bilateral edema. NEUROLOGIC EXAM: Alert and oriented x 3 No focal sensory or strength deficits. Speech normal. Follows commands. Completes full sentences PSYCHIATRIC: Mood calm SKIN: detial exam as documented in skin assessment - Constitutional Vitals: Temp Pulse Resp BP Pulse Ox 98.4 F 84 17 136/69 93 10/27/19 20:53 10/28/19 00:00 10/28/19 00:00 10/27/19 20:53 10/27/19 22:11 Results - Labs CBC & Chem 7: 10/27/19 08:56 10/28/19 Unknown Labs: Laboratory Last Values WBC 3.8 K/mm3 (4.5-11.0) L 10/27/19 08:56 RBC 5.01 M/mm3 (3.65-5.03) 10/27/19 08:56 Hgb 17.7 gm/dl (10.1-14.3) H 10/27/19 08:56 Hct 53.3 % (30.3-42.9) H 10/27/19 08:56 MCV 106 fl (79-97) H 10/27/19 08:56 MCH 35 pg (28-32) H 10/27/19 08:56 MCHC 33 % (30-34) 10/27/19 08:56 RDW 17.2 % (13.2-15.2) H 10/27/19 08:56 Plt Count 165 K/mm3 (140-440) 10/27/19 08:56 Lymph % (Auto) 30.9 % (13.4-35.0) 10/26/19 06:49 Johnson % (Auto) 8.4 % (0.0-7.3) H 10/26/19 06:49 Eos % (Auto) 0.1 % (0.0-4.3) 10/26/19 06:49 Baso % (Auto) 0.4 % (0.0-1.8) 10/26/19 06:49 Lymph # 2.1 K/mm3 (1.2-5.4) 10/26/19 06:49 Johnson # 0.6 K/mm3 (0.0-0.8) 10/26/19 06:49 Eos # 0.0 K/mm3 (0.0-0.4) 10/26/19 06:49 Baso # 0.0 K/mm3 (0.0-0.1) 10/26/19 06:49 Seg Neutrophils % 60.2 % (40.0-70.0) 10/26/19 06:49 Seg Neutrophils # 4.1 K/mm3 (1.8-7.7) 10/26/19 06:49 PT 14.4 Sec. (12.2-14.9) 10/26/19 06:49 INR 1.11 (0.87-1.13) 10/26/19 06:49 D-Dimer 334.49 ng/mlDDU (0-234) H 10/26/19 06:49 ABG pH 7.375 pH Units (7.350-7.450) 10/26/19 07:00 ABG pCO2 52.3 mm Hg 10/26/19 07:00 ABG pO2 195.8 mm Hg (80.0-90.0) H 10/26/19 07:00 ABG HCO3 29.9 mmol/L (20.0-26.0) H 10/26/19 07:00 ABG O2 Saturation 99.2 % (95.0-99.0) H 10/26/19 07:00 ABG O2 Content 21.4 (0.0-44) 10/26/19 07:00 ABG Base Excess 3.4 mmol/L (-2.0-3.0) H 10/26/19 07:00 ABG Hemoglobin 17.1 gm/dl (12.0-16.0) H 10/26/19 07:00 ABG Carboxyhemoglobin 1.7 % (0.0-5.0) 10/26/19 07:00 ABG Methemoglobin 0.6 % (0.0-1.5) 10/26/19 07:00 Oxyhemoglobin 96.9 % (95.0-99.0) 10/26/19 07:00 FiO2 32 % 10/26/19 07:00 Sodium 139 mmol/L (137-145) 10/28/19 04:19 Potassium 3.9 mmol/L (3.6-5.0) 10/28/19 04:19 Chloride 96.0 mmol/L (98-107) L 10/28/19 04:19 Carbon Dioxide 30 mmol/L (22-30) 10/28/19 04:19 Anion Gap 17 mmol/L 10/28/19 04:19 BUN 12 mg/dL (7-17) 10/28/19 04:19 Creatinine 0.5 mg/dL (0.7-1.2) L 10/28/19 04:19 Estimated GFR > 60 ml/min 10/28/19 04:19 BUN/Creatinine Ratio 24 % 10/28/19 04:19 Glucose 282 mg/dL (65-100) H 10/28/19 04:19 POC Glucose 231 (70-105) H 10/28/19 08:20 Lactic Acid 1.40 mmol/L (0.7-2.0) 10/27/19 08:56 Calcium 8.8 mg/dL (8.4-10.2) 10/28/19 04:19 Magnesium 1.90 mg/dL (1.7-2.3) 10/27/19 08:56 Ferritin 182.5 ng/mL (13.0-400.0) 10/26/19 06:49 Lactate Dehydrogenase 284 units/L (91-180) H 10/26/19 06:49 Total Creatine Kinase 65 units/L (30-135) 10/26/19 06:49 C-Reactive Protein 4.00 mg/dL (0.00-1.30) H 10/26/19 06:49 Procalcitonin < 0.05 ng/mL (<0.15) 10/26/19 06:49 Coronavirus (PCR) Positive (Negative) A 10/26/19 08:43 Microbiology: Microbiology 10/26/19 Unknown Peripheral/Venous Blood Culture - Preliminary NO GROWTH AFTER 24 HOURS 10/26/19 Unknown Peripheral/Venous Blood Culture - Preliminary NO GROWTH AFTER 24 HOURS Gaytan/IV: Voiding Method Toilet IV Catheter Type [Right Hand] INT / Saline Lock Active Medications - Current Medications Current Medications: Generic Name Dose Route Start Last Admin Trade Name Freq PRN Reason Stop Dose Admin Acetaminophen 650 mg 10/26/19 08:06 10/27/19 09:43 Tylenol PO 650 mg Q4H PRN Administration Pain MILD(1-3)/Fever >100.5/HANNAH Albuterol 2.5 mg 10/26/19 08:06 Proventil IH Q6H PRN Wheezing Albuterol/Ipratropium 1 ampul 10/26/19 14:00 10/28/19 01:57 Duoneb *Not For Prn Use* IH Not Given Q6HRT THOMAS Arformoterol Tartrate 15 mcg 10/26/19 20:00 10/27/19 22:06 Brovana Nebu IH 15 mcg Q12HRT THOMAS Administration Aspirin 81 mg 10/26/19 10:00 10/27/19 09:42 Baby Aspirin PO 81 mg QDAY THOMAS Administration Atorvastatin Calcium 20 mg 10/26/19 22:00 10/27/19 22:41 Lipitor PO 20 mg QHS THOMAS Administration Budesonide 0.5 mg 10/26/19 20:00 10/27/19 22:07 Pulmicort IH 0.5 mg Q12HRT THOMAS Administration Bumetanide 1 mg 10/26/19 10:00 10/27/19 09:44 Bumex IV 1 mg DAILY THOMAS Administration Cyclobenzaprine HCl 10 mg 10/26/19 10:00 Flexeril PO BID PRN Muscle Spasm Dextrose 50 ml 10/26/19 08:07 D50w (25gm) Syringe IV Q30MIN PRN Hypoglycemia Protocol Glipizide 10 mg 10/26/19 09:00 10/27/19 09:44 Glucotrol Xl PO 10 mg QDDIAB THOMAS Administration Guaifenesin 200 mg 10/26/19 21:56 10/26/19 22:55 Robitussin PO 200 mg Q6H PRN Administration Cough Insulin Glargine 30 units 10/27/19 22:00 10/27/19 22:41 Lantus SUB-Q 30 units QHS THOMAS Administration Insulin Human Lispro 0 unit 10/26/19 11:30 10/27/19 22:40 Humalog SUB-Q 6 unit ACHS THOMAS Administration Protocol Methylprednisolone Sodium Succinate 40 mg 10/28/19 14:00 Solu-Medrol IV Q8HR THOMAS Metoclopramide HCl 10 mg 10/26/19 08:07 Reglan IV Q6H PRN Nausea And Vomiting Metoprolol Succinate 25 mg 10/26/19 10:00 10/27/19 09:42 Metoprolol Xl PO 25 mg QDAY THOMAS Administration Morphine Sulfate 2 mg 10/26/19 08:07 Morphine IV Q4H PRN Pain, Moderate (4-6) Multivitamins/Minerals 1 each 10/27/19 10:00 10/27/19 09:42 Caltrate Plus PO 1 each QDAY THOMAS Administration Ondansetron HCl 4 mg 10/26/19 08:07 Zofran IV Q8H PRN Nausea And Vomiting Oxycodone/Acetaminophen 1 tab 10/26/19 08:06 10/27/19 22:51 Percocet 5/325 PO 1 tab Q6H PRN Administration Pain , Severe (7-10) Sodium Chloride 10 ml 10/26/19 10:00 10/27/19 22:42 Sodium Chloride Flush Syringe 10 Ml IV 10 ml BID THOMAS Administration Sodium Chloride 10 ml 10/26/19 08:07 Sodium Chloride Flush Syringe 10 Ml IV PRN PRN LINE FLUSH
[2019-10-28] MEDS: INSULIN LISPRO 100 UNIT/ML SUB-Q SCH ×4 (08:22→22:17)
[2019-10-28] MEDS: ARFORMOTEROL 15 MCG/2 ML NEBU IH SCH ×2 (09:06→20:26)
[2019-10-28] MEDS: BUDESONIDE 0.5 MG/2 ML NEBU IH SCH ×2 (09:07→20:26)
[2019-10-28] MEDS: ASPIRIN 81 MG TAB CHEW PO SCH (09:41)
[2019-10-28] MEDS: CALCIUM CARB/VIT D3/MINERALS 600 MG/800 UNITS TAB PO SCH (09:41)
--- NOTE | 2019-10-28 11:29 | Progress Note ---
Assessment and Plan Assessment and Plan 54 y/o female admitted with dyspnea for the past week, and fever, found to be warren virus positive 1. ID has been consulted, markers sent. Will defer to them in regards to initial therapy at this time if any. Weaned to FiO2 of 28 %. Will encourage patient to prone several times during the day and sleep on her stomach at night if possible. Wean FiO2 for sats >88%. Patient has had to go home on oxygen in the past. Her last hospital stay required this. Agree with continuing steroid therapy as patient does have underlying obstructive lung disease. Will start to wean in about 48-72 hours. Will need steroid taper, at least over 2 weeks time. If Im not mistaken, patient suffers from diastolic dysfunction and required diuresis at last hospital stent. Given her most recent diagnosis, we know individuals do better the less volume they are retaining or taking in. Continue with diuretic therapy and hold on all fluids unless patient is not tolerating any PO. Cont. close monitoring and supportive care for Covid-19 infection. Overall prognosis is fair. Will continue to follow. Subjective Date of service: 10/28/19 Interval history: Pt feeling better on NC O2. Afebrile, No sig SOB or cough. Chart reviewed Objective - Exam Narrative Exam: VITAL SIGNS: Reviewed. GENERAL: The patient appears normally developed, a prior noted shortness of breath is improved vital signs as documented. HEAD: No signs of head trauma. EYES: Pupils are equal. Extraocular motions intact. EARS: Hearing grossly intact. MOUTH: Oropharynx is normal. NECK: No adenopathy, no JVD. CHEST: Chest with decreased breath sounds bilaterally. No wheezes, rales, or rhonchi. CARDIAC: Regular rate and rhythm. S1 and S2, without murmurs, gallops, or rubs. VASCULAR: Trace edema. Peripheral pulses normal and equal in all extremities. ABDOMEN: Soft, non tender and non distended. No rebound or guarding, and no masses palpated. Bowel Sounds normal. MUSCULOSKELETAL: Good range of motion of all major joints. Extremities without clubbing, cyanosis. Trace bilateral edema. NEUROLOGIC EXAM: Alert and oriented x 3 No focal sensory or strength deficits. Speech normal. Follows commands. Completes full sentences PSYCHIATRIC: Mood calm SKIN: detial exam as documented in skin assessment Vital Signs - 12hr 10/28/19 10/28/19 10/28/19 00:00 09:07 09:53 Temperature 98.3 F Pulse Rate 84 121 H Pulse Rate [ 93 H Bilateral] Respiratory 17 24 Rate Respiratory 19 Rate [Bilateral ] Blood Pressure 127/57 O2 Sat by Pulse 93 95 Oximetry Constitutional: other (Not examined closely) Effort: normal Gastrointestinal: other (Obese) Neurologic: normal mental status Psychiatric: mood appropriate CBC and BMP: 10/27/19 08:56 10/28/19 Unknown ABG, PT/INR, D-dimer: ABG ABG pH 7.375 pH Units (7.350-7.450) 10/26/19 07:00 ABG pCO2 52.3 mm Hg 10/26/19 07:00 ABG pO2 195.8 mm Hg (80.0-90.0) H 10/26/19 07:00 ABG O2 Saturation 99.2 % (95.0-99.0) H 10/26/19 07:00 PT/INR, D-dimer PT 14.4 Sec. (12.2-14.9) 10/26/19 06:49 INR 1.11 (0.87-1.13) 10/26/19 06:49 D-Dimer 268.80 ng/mlDDU (0-234) H 10/28/19 Unknown Abnormal lab findings: Abnormal Labs 10/26/19 10/26/19 10/26/19 06:49 06:49 06:49 WBC Hgb 17.3 H Hct 51.0 H MCV 104 H MCH 35 H RDW 17.4 H Carlton % (Auto) 8.4 H D-Dimer 334.49 H ABG pO2 ABG HCO3 ABG O2 Saturation ABG Base Excess ABG Hemoglobin Chloride 95.8 L Carbon Dioxide BUN 5 L Creatinine 0.6 L Glucose 180 H POC Glucose Lactic Acid Calcium 8.3 L Magnesium 1.40 L Lactate Dehydrogenase 284 H C-Reactive Protein 4.00 H Coronavirus (PCR) 10/26/19 10/26/19 10/26/19 06:49 07:00 08:43 WBC Hgb Hct MCV MCH RDW Carlton % (Auto) D-Dimer ABG pO2 195.8 H ABG HCO3 29.9 H ABG O2 Saturation 99.2 H ABG Base Excess 3.4 H ABG Hemoglobin 17.1 H Chloride Carbon Dioxide BUN Creatinine Glucose POC Glucose Lactic Acid Calcium Magnesium 1.40 L Lactate Dehydrogenase C-Reactive Protein Coronavirus (PCR) Positive A 10/26/19 10/26/19 10/26/19 13:05 16:15 17:20 WBC Hgb Hct MCV MCH RDW Carlton % (Auto) D-Dimer ABG pO2 ABG HCO3 ABG O2 Saturation ABG Base Excess ABG Hemoglobin Chloride Carbon Dioxide BUN Creatinine Glucose POC Glucose 288 H 226 H Lactic Acid 2.60 H* Calcium Magnesium Lactate Dehydrogenase C-Reactive Protein Coronavirus (PCR) 10/26/19 10/27/19 10/27/19 22:12 08:21 08:56 WBC 3.8 L Hgb 17.7 H Hct 53.3 H MCV 106 H MCH 35 H RDW 17.2 H Carlton % (Auto) D-Dimer ABG pO2 ABG HCO3 ABG O2 Saturation ABG Base Excess ABG Hemoglobin Chloride Carbon Dioxide BUN Creatinine Glucose POC Glucose 318 H 202 H Lactic Acid Calcium Magnesium Lactate Dehydrogenase C-Reactive Protein Coronavirus (PCR) 10/27/19 10/27/19 10/27/19 08:56 12:45 16:56 WBC Hgb Hct MCV MCH RDW Carlton % (Auto) D-Dimer ABG pO2 ABG HCO3 ABG O2 Saturation ABG Base Excess ABG Hemoglobin Chloride 95.4 L Carbon Dioxide 32 H BUN Creatinine 0.5 L Glucose 284 H POC Glucose 294 H 358 H Lactic Acid Calcium Magnesium Lactate Dehydrogenase C-Reactive Protein Coronavirus (PCR) 10/27/19 10/28/19 10/28/19 21:01 04:19 08:20 WBC Hgb Hct MCV MCH RDW Carlton % (Auto) D-Dimer ABG pO2 ABG HCO3 ABG O2 Saturation ABG Base Excess ABG Hemoglobin Chloride 96.0 L Carbon Dioxide BUN Creatinine 0.5 L Glucose 282 H POC Glucose 278 H 231 H Lactic Acid Calcium Magnesium Lactate Dehydrogenase C-Reactive Protein Coronavirus (PCR) 10/28/19 10/28/19 Unknown Unknown WBC Hgb Hct MCV MCH RDW Carlton % (Auto) D-Dimer 268.80 H ABG pO2 ABG HCO3 ABG O2 Saturation ABG Base Excess ABG Hemoglobin Chloride Carbon Dioxide BUN Creatinine Glucose 276 H POC Glucose Lactic Acid Calcium Magnesium Lactate Dehydrogenase 212 H C-Reactive Protein Coronavirus (PCR)
[2019-10-28] MEDS: methylPREDNISolone Sod Succinate 40 MG/1 ML INJ IV SCH ×2 (13:18→22:00)
[2019-10-28] MEDS: METOPROLOL SUCCINATE XL 25 MG TAB PO SCH (13:19)
[2019-10-28] MEDS: guaiFENesin 200 MG TAB PO PRN (22:00)
[2019-10-28] MEDS: INSULIN GLARGINE 100 UNITS/ML SUB-Q SCH (22:16)
[2019-10-29] MEDS: IPRATROPIUM/ALBUTEROL SULFATE 3 ML AMPUL.NEB IH SCH ×2 (01:16→09:21)
[2019-10-29] MEDS: oxyCODONE /ACETAMINOPHEN 5-325MG TAB PO PRN (01:57)
[2019-10-29] MEDS: methylPREDNISolone Sod Succinate 40 MG/1 ML INJ IV SCH (05:41)
--- NOTE | 2019-10-29 08:31 | Discharge Summary ---
Providers - Providers Date of Admission: 10/26/19 07:41 Attending physician: POLY VILLANUEVA MD 10/26/19 06:48 Consult to Physician [CONS] Urgent Comment: Consulting Provider: SELENE JEAN Physician Instructions: Reason For Exam: resp failure asthma 10/26/19 07:17 Consult to Physician [CONS] Urgent Comment: Consulting Provider: JEAN-PAUL PHILLIPS Physician Instructions: Reason For Exam: fever sirs suspected covid Primary care physician: [employer] Hospitalization Reason for admission: Respiratory failure Condition: Stable Hospital course: Patient is a 54-year-old female with past medical history of congestive heart failure, asthma, obstructive sleep apnea, diabetes mellitus hypertension hyperlipidemia 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 She denies any chest pain nausea vomiting or diarrhea. She appears to be in acute asthma exacerbation and she states that this happens routinely. Patient was placed on BiPAP with noted improvement. She denies DVT and pulmonary embolism risk factors. She denies physical pain at this time. There is no complaint of headache, neck pain, chest pain, abdominal pain, urinary symptoms, focal extremity weakness and or numbness. * Patient on admission was started on IV steroids and subsequently tapered down. She did test positive for the COVID-19 and was treated as such. No antibiotics was recommended * She reported remarkable improvement. She is already on home oxygen and will be discharged on the same. No new complaints she is encouraged to continue isolation until she test negative which can be arranged by her primary care physician. Also recommended to stay in dedicated restroom away from other family members due to high contagious nature of this disease. Patient verbalized understanding. * Weight loss was strongly recommended I also recommended obstructive sleep apnea study and continue CPAP at home. -Acute respiratory failure with hypoxia due to acute asthma exacerbation AND COVID19: -Acute asthma exacerbation: treat with steroids, nebs. -COVID-19 viral pneumonia: -Sepsis: Likely secondary to underlying pneumonia unfortunately cannot use sepsis protocol with fluids due to underlying congestive heart failure. And also risk of ARDS. - Hypomagenesmia: Replace -SORAYA (obstructive sleep apnea) CPAP at nighttime -Type 2 diabetes mellitus: Sliding scale coverage, will place on long-acting insulin at night considering steroids, adjusted lantus to 30qhs as glucose still elevated -Acute on chronic congestive heart failure diastolic: We will hold p.o. Bumex and give patient IV Bumex daily -HTN (hypertension): Continue antihypertensives in the form of metoprolol 25 mg once a day -Hyperlipidemia: statin -Hypocalcemia, Patient initiated on Caltrate D twice a day -Morbid obesity, bmi 47.3 Disposition: [id number]/[place]-06 HOME UNDER HOME HLTH Time spent for discharge: 35-minute Core Measure Documentation - Palliative Care Palliative Care/ Comfort Measures: Not Applicable - Core Measures Any of the following diagnoses?: none Exam - Physical Exam Narrative exam: VITAL SIGNS: Reviewed. GENERAL: The patient appears normally developed, a prior noted shortness of breath is improved vital signs as documented. HEAD: No signs of head trauma. EYES: Pupils are equal. Extraocular motions intact. EARS: Hearing grossly intact. MOUTH: Oropharynx is normal. NECK: No adenopathy, no JVD. CHEST: Chest with decreased breath sounds bilaterally. No wheezes, rales, or rhonchi. CARDIAC: Regular rate and rhythm. S1 and S2, without murmurs, gallops, or rubs. VASCULAR: Trace edema. Peripheral pulses normal and equal in all extremities. ABDOMEN: Soft, non tender and non distended. No rebound or guarding, and no masses palpated. Bowel Sounds normal. MUSCULOSKELETAL: Good range of motion of all major joints. Extremities without clubbing, cyanosis. Trace bilateral edema. NEUROLOGIC EXAM: Alert and oriented x 3 No focal sensory or strength deficits. Speech normal. Follows commands. Completes full sentences PSYCHIATRIC: Mood calm SKIN: detial exam as documented in skin assessment - Constitutional Vitals: Temp Pulse Resp BP Pulse Ox 98.2 F 103 H 18 129/75 96 10/29/19 05:53 10/29/19 05:53 10/29/19 05:53 10/29/19 05:53 10/29/19 05:53 Plan Activity: advance as tolerated, fall precautions Diet: low fat, diabetic Special Instructions: record daily weights, home oxygen via (nasal cannula @ 2 liters per minute) Follow up with: IMAN CARREON MD [Primary Care Provider] - 3-5 Days SELENE JEAN MD [Staff Physician] - 7 Days Forms: Work/School Release Form Prescriptions: Calcium Carb/Vit D3/Minerals [Caltrate Plus] 1 each PO QDAY #14 tablet Prednisone [predniSONE 10 mg (6-Day Pack, 21 Tabs)] 10 mg PO .TAPER #1 tab.ds.pk guaiFENesin [Robitussin] 200 mg PO Q6H PRN #7 tablet PRN Reason: Cough
[2019-10-29] MEDS: INSULIN LISPRO 100 UNIT/ML SUB-Q SCH (08:35)
[2019-10-29] MEDS: BUDESONIDE 0.5 MG/2 ML NEBU IH SCH (09:12)
[2019-10-29] MEDS: ARFORMOTEROL 15 MCG/2 ML NEBU IH SCH (09:12)
[2019-10-29] MEDS: METOPROLOL SUCCINATE XL 25 MG TAB PO SCH (10:22)
[2019-10-29] MEDS: ASPIRIN 81 MG TAB CHEW PO SCH (10:24)
[2019-10-29] MEDS: CALCIUM CARB/VIT D3/MINERALS 600 MG/800 UNITS TAB PO SCH (10:24)
[2019-10-29] MEDS: BUMETANIDE 1 MG/4 ML INJ IV SCH (10:24)
--- NOTE | 2019-10-29 10:29 | Progress Note ---
Assessment and Plan 54 y/o female admitted with dyspnea for the past week, and fever, found to be warren virus positive 10/29/2019: No objection to discharge if oxygen therapy has been set up. Patient also needs to have a portable pulse ox to check her sats. 88% and greater is acceptable. She should continue to prone at home and isolate herself from others. She should continue her current flow requirements until she can follow up in our office in 2 weeks time. She will need a steroid taper over two weeks time. If discharged today, please send out on Prednisone 60 daily for 5 days, 40 daily for 5 days, 20 daily for 5 days, then 10 daily for 5 days. Continue PPV at night and limit excess fluid intake. Subjective Date of service: 10/29/19 Interval history: No acute events. Remains on nasal cannula and stable. Objective Vital Signs - 12hr 10/29/19 10/29/19 10/29/19 00:28 02:01 05:53 Temperature 99.8 F H 98.2 F Pulse Rate 103 H Pulse Rate [ Bilateral] Respiratory 19 18 Rate Respiratory Rate [Bilateral ] Blood Pressure Blood Pressure 129/75 [Left] O2 Sat by Pulse 96 Oximetry 10/29/19 10/29/19 09:12 10:22 Temperature Pulse Rate 72 Pulse Rate [ 124 H Bilateral] Respiratory Rate Respiratory 20 Rate [Bilateral ] Blood Pressure 132/78 Blood Pressure [Left] O2 Sat by Pulse Oximetry Constitutional: other (Not examined closely) Effort: normal Gastrointestinal: other (Obese) Neurologic: normal mental status Psychiatric: mood appropriate CBC and BMP: 10/27/19 08:56 10/28/19 Unknown ABG, PT/INR, D-dimer: ABG ABG pH 7.375 pH Units (7.350-7.450) 10/26/19 07:00 ABG pCO2 52.3 mm Hg 10/26/19 07:00 ABG pO2 195.8 mm Hg (80.0-90.0) H 10/26/19 07:00 ABG O2 Saturation 99.2 % (95.0-99.0) H 10/26/19 07:00 PT/INR, D-dimer PT 14.4 Sec. (12.2-14.9) 10/26/19 06:49 INR 1.11 (0.87-1.13) 10/26/19 06:49 D-Dimer 268.80 ng/mlDDU (0-234) H 10/28/19 Unknown Abnormal lab findings: Abnormal Labs 10/26/19 10/26/19 10/26/19 06:49 06:49 06:49 WBC Hgb 17.3 H Hct 51.0 H MCV 104 H MCH 35 H RDW 17.4 H [place] % (Auto) 8.4 H D-Dimer 334.49 H ABG pO2 ABG HCO3 ABG O2 Saturation ABG Base Excess ABG Hemoglobin Chloride 95.8 L Carbon Dioxide BUN 5 L Creatinine 0.6 L Glucose 180 H POC Glucose Lactic Acid Calcium 8.3 L Magnesium 1.40 L Lactate Dehydrogenase 284 H C-Reactive Protein 4.00 H Coronavirus (PCR) 10/26/19 10/26/19 10/26/19 06:49 07:00 08:43 WBC Hgb Hct MCV MCH RDW [place] % (Auto) D-Dimer ABG pO2 195.8 H ABG HCO3 29.9 H ABG O2 Saturation 99.2 H ABG Base Excess 3.4 H ABG Hemoglobin 17.1 H Chloride Carbon Dioxide BUN Creatinine Glucose POC Glucose Lactic Acid Calcium Magnesium 1.40 L Lactate Dehydrogenase C-Reactive Protein Coronavirus (PCR) Positive A 10/26/19 10/26/19 10/26/19 13:05 16:15 17:20 WBC Hgb Hct MCV MCH RDW [place] % (Auto) D-Dimer ABG pO2 ABG HCO3 ABG O2 Saturation ABG Base Excess ABG Hemoglobin Chloride Carbon Dioxide BUN Creatinine Glucose POC Glucose 288 H 226 H Lactic Acid 2.60 H* Calcium Magnesium Lactate Dehydrogenase C-Reactive Protein Coronavirus (PCR) 10/26/19 10/27/19 10/27/19 22:12 08:21 08:56 WBC 3.8 L Hgb 17.7 H Hct 53.3 H MCV 106 H MCH 35 H RDW 17.2 H [place] % (Auto) D-Dimer ABG pO2 ABG HCO3 ABG O2 Saturation ABG Base Excess ABG Hemoglobin Chloride Carbon Dioxide BUN Creatinine Glucose POC Glucose 318 H 202 H Lactic Acid Calcium Magnesium Lactate Dehydrogenase C-Reactive Protein Coronavirus (PCR) 10/27/19 10/27/19 10/27/19 08:56 12:45 16:56 WBC Hgb Hct MCV MCH RDW [place] % (Auto) D-Dimer ABG pO2 ABG HCO3 ABG O2 Saturation ABG Base Excess ABG Hemoglobin Chloride 95.4 L Carbon Dioxide 32 H BUN Creatinine 0.5 L Glucose 284 H POC Glucose 294 H 358 H Lactic Acid Calcium Magnesium Lactate Dehydrogenase C-Reactive Protein Coronavirus (PCR) 10/27/19 10/28/19 10/28/19 21:01 04:19 08:20 WBC Hgb Hct MCV MCH RDW [place] % (Auto) D-Dimer ABG pO2 ABG HCO3 ABG O2 Saturation ABG Base Excess ABG Hemoglobin Chloride 96.0 L Carbon Dioxide BUN Creatinine 0.5 L Glucose 282 H POC Glucose 278 H 231 H Lactic Acid Calcium Magnesium Lactate Dehydrogenase C-Reactive Protein Coronavirus (PCR) 10/28/19 10/28/19 10/28/19 12:23 16:04 22:24 WBC Hgb Hct MCV MCH RDW [place] % (Auto) D-Dimer ABG pO2 ABG HCO3 ABG O2 Saturation ABG Base Excess ABG Hemoglobin Chloride Carbon Dioxide BUN Creatinine Glucose POC Glucose 308 H 259 H 202 H Lactic Acid Calcium Magnesium Lactate Dehydrogenase C-Reactive Protein Coronavirus (PCR) 10/28/19 10/28/19 10/29/19 Unknown Unknown 07:51 WBC Hgb Hct MCV MCH RDW [place] % (Auto) D-Dimer 268.80 H ABG pO2 ABG HCO3 ABG O2 Saturation ABG Base Excess ABG Hemoglobin Chloride Carbon Dioxide BUN Creatinine Glucose 276 H POC Glucose 135 H Lactic Acid Calcium Magnesium Lactate Dehydrogenase 212 H C-Reactive Protein Coronavirus (PCR)
[2019-10-29 12:39] VITALS: BP 157/99
== END 2019-10-29 12:50 | disposition home or self-care (01) | DRG 871 ==
LOC: EEVIPCON 06:29 → ED 06:29 → IMCU 07:41 → 3A 13:14
PROVIDERS: ADMIT Internal Medicine; ATTEND Internal Medicine
PROC: 4A033R1 Measurement of Arterial Saturation, Peripheral, Percutaneous Approach (ICD-10-PCS; principal; 2019-10-26)
PROC: 5A09357 Assistance with Respiratory Ventilation, Less than 24 Consecutive Hours, Continuous Positive Airway Pressure (ICD-10-PCS; 2019-10-26)
PROC: 5A09357 Assistance with Respiratory Ventilation, Less than 24 Consecutive Hours, Continuous Positive Airway Pressure (ICD-10-PCS; 2019-10-28)
PROC: 5A09357 Assistance with Respiratory Ventilation, Less than 24 Consecutive Hours, Continuous Positive Airway Pressure (ICD-10-PCS; 2019-10-29)
DX: A41.89 Other specified sepsis (principal); U07.1 COVID-19; J96.01 Acute respiratory failure with hypoxia; J12.89 Other viral pneumonia; I50.33 Acute on chronic diastolic (congestive) heart failure; J45.901 Unspecified asthma with (acute) exacerbation; Z68.42 Body mass index [BMI] 45.0-49.9, adult; G47.30 Sleep apnea, unspecified; E11.9 Type 2 diabetes mellitus without complications; E66.01 Morbid (severe) obesity due to excess calories; I11.0 Hypertensive heart disease with heart failure; Z87.891 Personal history of nicotine dependence; E83.42 Hypomagnesemia; G47.33 Obstructive sleep apnea (adult) (pediatric); E78.5 Hyperlipidemia, unspecified; E87.5 Hyperkalemia; E83.51 Hypocalcemia; Z79.4 Long term (current) use of insulin
CPT/HCPCS: 36415; 71045; 80048; 82140; 82550; 82728; 82803; 82947; 82962; 83615; 83735; 84145; 85025; 85027; 85379; 85610; 86140; 87040; 93005; 94640; 94644; 94660; 94760; G0378; A9270-GY; J0171; J0456; J0696; J1815; J2920; J2930; J3475; J7040; J7050; U0003